=== PATIENT | female | born 1945 | race Caucasian/White ===

== ENCOUNTER → 2018-05-19 | Outpatient (REF) | payer OTHER ==
[2018-05-19 13:39] LABS: PERCENT SATURATION 47.5 % (13.2-45.0)
== END ==
LOC: M LABDRAW1 13:11 → M LAB REF 13:11
PROVIDERS: ATTEND Internal Medicine Nephrology
DX: D50.9 Iron deficiency anemia, unspecified (principal); N18.3 Chronic kidney disease, stage 3 (moderate); R80.9 Proteinuria, unspecified

== ENCOUNTER 2019-02-24 17:04 | Inpatient (IN) | payer MEDICARE, OTHER ==
[~2019-02-24] VITALS: Ht 165.1 cm; Wt 128.1 kg
[2019-02-24 19:30] VITALS: BP 146/70
[2019-02-24] MEDS ORDERED: ACETAMINOPHEN TAB 650MG DOSE (2X325MG) PO PRN (20:00)
[2019-02-24 20:27] LABS: HEMATOCRIT 23.4 % (36.0-47.0); HEMOGLOBIN 7.4 g/dl (12.0-15.5); MEAN CORPUSCULAR HEMOGLOBIN 33.6 pg (27.0-33.0); MEAN CORPUSCULAR HGB CONC 31.6 g/dl (32.0-36.5); MEAN CORPUSCULAR VOLUME 106.4 fl (80.0-96.0); PLATELET COUNT, AUTOMATED 313 10^3/uL (150-450); WHITE BLOOD COUNT 6.8 10^3/uL (4.0-10.0)
[2019-02-24] MEDS ORDERED: B-12100010 PO (20:50)
[2019-02-24] MEDS ORDERED: LASI40TA9 PO (20:50)
[2019-02-24] MEDS ORDERED: MEGE40TA PO (20:50)
[2019-02-24] MEDS ORDERED: D-10TAB3 PO (20:50)
[2019-02-24] MEDS ORDERED: VITA50005 PO (20:50)
[2019-02-24 20:51] LABS: ALBUMIN 2.9 GM/DL (3.2-5.2); BILIRUBIN,TOTAL 0.3 MG/DL (0.2-1.0); CALCIUM LEVEL 8.9 MG/DL (8.8-10.2); CREATININE FOR GFR 3.53 MG/DL (0.55-1.30); GLOMERULAR FILTRATION RATE 13.5 (>39); POTASSIUM SERUM 5.5 MEQ/L (3.5-5.1); TOTAL PROTEIN 6.6 GM/DL (6.4-8.2)
[2019-02-24] MEDS ORDERED: AMLO5TAB6 PO (20:53)
[2019-02-24 22:00] VITALS: BP 144/71
--- NOTE | 2019-02-24 23:30 | HPEPDOC ---
[facility] Medical History & Physical Date of Admission Feb 24, 2019 Date of Service: Feb 24, 2019 Attending Physician: BARB DIAZ MD History and Physical TIME OF SERVICE: 8 PM CHIEF COMPLAINT: Sent by PCP HISTORY OF PRESENT ILLNESS: This is a 73-year-old female who reports receiving a phone call from her physician, who told her to go to the ED. She's been having hematuria for about 1 month and completed a seven-day course of antibiotics for UTI. She has also been having left lower quadrant abdominal pain that radiates to her back; currently the pain has resolved. She denies having nausea, denies having vomiting, denies having fevers, denies having chills, denies having chest pain, denies any h eadaches, and denies having shortness of breath. Her only other complaint is of a runny nose. At [facility], her temperature is 90.9, blood pressures 135/60, heart rate is 102, respiratory rate was 16, and oxygen was 100% on room air. WBC 6.9, hemoglobin 7.6, platelets 355, sodium 144, potassium 5.3, chloride 111, bicarbonate 15, BUN 70, creatinine 3.6, glucose 145, anion gap 18, GFR under 13, AST 12, ALT 7, alkaline phosphatase and phosphatase 42. UA; protein 500, WBCs 123, blood 250, RBCs too numerous to count, nitrates negative, leukocyte esterase 25, bacteria trace. She had a CT that showed a uterine vs bladder mass 5 mm obstructing left UVJ junction calculi and moderate left hydroureter. She received 2 L of IV fluids She was diagnosed with acute anemia, ROWAN, hyperkalemia, nephrolithiasis and abdominal mass; therefore, the physicians [facility] requested transfer for higher level of care. REVIEW OF SYSTEMS: 12 point review of systems negative except as listed in HPI PAST MEDICAL/ SURGICAL HISTORY: History of dysfunctional uterine bleeding status post hysterectomy. Status post appendectomy. Status post right eye cataract surgery CKD stage unknown - sees Dr. Pimentel She denied having history of MA, CVA, or diabetes SOCIAL HISTORY: Does not smoke. Does not use alcohol FAMILY HISTORY: Father had emphysema ALLERGIES: Please see below. HOME MEDICATIONS: Please see below. PHYSICAL EXAMINATION: VITAL SIGNS: Please see below. GENERAL APPEARANCE: Well-nourished, well-developed, not in apparent distress HEENT: Cephalic, atraumatic. Mucous membranes moist and pink CARDIOVASCULAR: Regular rate and rhythm. No murmurs, rubs or gallops LUNGS: Clear to auscultation bilaterally on room air ABDOMEN: Positive bowel sounds, soft and nontender on palpation MUSCULOSKELETAL: Range of motion intact in all 4 extremities INTEGUMENT: Generalized pallor NEUROLOGICAL: Cranial nerves II-12 are grossly intact. Speech is not dysarthric PSYCHIATRIC: Alert and oriented to person, place and time, able to understand and follow commands LABORATORY DATA: See HPI. IMAGING: See HPI. ASSESSMENT: Ms. Siddiqui is a 73-year-old female with past medical history of hysterectomy, and multiple abdominal surgeries, who is admitted for management of acute blood loss anemia, ROWAN, and evaluation of a new abdominal mass. PLAN: 1. Gross hematuria Differential includes bladder cancer versus nephrolithiasis UA is positive for leukocyte esterase and WBCs Plan: Admit to PCU/follow-up repeat hemoglobin/type and screen/follow-up repeat UA and culture start levofloxacin / follow up with Urology to determine if the source of bleeding is the bladder mass vs the kidney stone 2. Multifactorial Anemia MCV elevated, she has had hematuria & she has CKD therefore the anemia is likely multifactorial . Consent has already been obtained for a transfusion Plan: f/u serial Hg, reticulocyte #, iron panel w ferritin, B12, RBC folate, thiamine, stool occult / pending stool occult daytime team can determine if GI consult is also warranted / f/u w Nephrology to determine if Epogen +/- Venofer are warranted 3. ROWAN on CKD versus CKD Based on our EMR it is unclear what the patient's baseline BUN/creatinine GFR are Based on records from the outside hospital her BUN and creatinine were elevated and GFR was 13, which puts her in stage V. She received 2L of IVF at [facility] Plan: hold off additional fluids pending Is/ Os & daily weights / renal diet / f/u renal US, CK, Phosphorous, 25 Vitamin D, Hepatitis Panel, PTH, Calcium, C3, C4, Iron Panel w Ferritin, Ulytes for FEUrea (home med includes lasix), UPro:Cr ratio, protein immunoelectrophoresis /follow-up with [employer] / hold lasix 4. Hyperkalemia, likely due to ROWAN Plan: telemetry / f/u EKG / avoid all K sparing diuretics and NSAIDs / Calcium gluconate IV 1G, D50W 50ml w 10 units of regular insulin 5. Abdominal mass Plan: NPO/ Follow-up with urology DVT prophylaxis with SCDs because of acute blood loss anemia. Disposition pending clinical course Vital Signs Vital Signs Date Time Temp Pulse Resp B/P (MAP) Pulse Ox O2 Delivery O2 Flow Rate FiO2 02/24/19 22:00 98.2 93 19 144/71 (95) 100 Laboratory Data Labs 24H Laboratory Tests 2 02/24/19 20:15: Nucleated Red Blood Cells % (auto) 0.0, Anion Gap 10, Glomerular Filtration Rate 13.5L, Blood Urea Nitrogen 71H, Creatinine 3.53H, Sodium Level 145, Potassium Level 5.5H, Chloride Level 119H, Carbon Dioxide Level 16L, Calcium Level 8.9, Aspartate Amino Transf (AST/SGOT) 17, Alanine Aminotransferase (ALT/SGPT) 9L, Alkaline Phosphatase 39L, Total Bilirubin 0.3, Total Protein 6.6, Albumin 2.9L, Albumin/Globulin Ratio 0.78L 02/24/19 20:20: Urine Color MERCED, Urine Appearance TURBIDH, Urine pH 5.0, Urine Specific Anza 1.018, Urine Protein 3+H, Urine Glucose (UA) NEGATIVE, Urine Ketones NEGATIVE, Urine Blood 3+H, Urine Nitrite NEGATIVE, Urine Bilirubin NEGATIVE, Urine Urobilinogen 0.2, Urine Leukocyte Esterase 2+H, Urine WBC (Auto) TNTCH, Urine RBC (Auto) TNTCH, Urine Hyaline Casts (Auto) 0, Urine Bacteria (Auto) 3+H, Urine Squamous Epithelial Cells 17, Urine Sperm (Auto) CBC/BMP Laboratory Tests 02/24/19 20:15 Red Blood Count 2.20 L, Mean Corpuscular Volume 106.4 H, Mean Corpuscular Hemoglobin 33.6 H, Mean Corpuscular Hemoglobin Concent 31.6 L, Red Cell Distribution Width 13.4, Calcium Level 8.9, Aspartate Amino Transf (AST/SGOT) 17, Alanine Aminotransferase (ALT/SGPT) 9 L, Alkaline Phosphatase 39 L, Total Bilirubin 0.3, Total Protein 6.6, Albumin 2.9 L Microbiology Microbiology 02/24/19 Urine Culture, Received Pending Home Medications Scheduled Amlodipine Besylate (Amlodipine Besylate) 5 Mg Tablet, 5 MG PO DAILY PCP PRESCRIBED PUT PT NEVER PICKED UP Cholecalciferol (Vitamin D3) (Vitamin D3) 1,000 Unit Tablet, 1,000 UNIT PO DAILY Cyanocobalamin (Vitamin B-12) (Vitamin B-12) 1,000 Mcg Capsule, 1,000 MCG PO DAILY Ergocalciferol (Vitamin D2) (Vitamin D2) 50,000 Unit Capsule, 50,000 UNIT PO 1XWK Furosemide (Lasix) 40 Mg Tablet, 40 MG PO DAILY Megestrol Acetate (Megestrol Acetate) 40 Mg Tablet, 80 MG PO BID Allergies Coded Allergies: No Known Allergies (Unverified , 02/24/19) A-FIB/CHADSVASC A-FIB History Current/History of A-Fib/PAF?: No Current PO Anticoag Therapy: No BARB DIAZ MD Feb 24, 2019 23:30
[2019-02-25] MEDS ORDERED: HumuLIN R (REGULAR) INSULIN (NovoLIN R) **100U/ML** PER UNIT IV STA (00:29)
[2019-02-25] MEDS ORDERED: DEXTROSE 50% 50 ML SYRINGE IV STA (00:29)
[2019-02-25] MEDS ORDERED: CALCIUM GLUCONATE 1,000 MG in D5W MINI-BAG PLUS 100 ML IV ONE (00:30)
[2019-02-25 04:51] LABS: MAU/CREAT RATIO 1700.4 MCG/MG (0.0-30.0); POTASSIUM RANDOM URINE 20.3 MEQ/L; SODIUM,RANDOM URINE 62 MEQ/L; UREA NITROGEN RANDOM URINE 385 MG/DL; URINE TOTAL PROTEIN 921.4 MG/DL (0-12)
[2019-02-25] MEDS: LevoFLOXacin IV 250 MG in IV 1 EA IV SCH (05:37)
[2019-02-25 06:00] VITALS: BP 141/78
[2019-02-25 06:44] LABS: HEMATOCRIT 22.8 % (36.0-47.0); MEAN CORPUSCULAR HEMOGLOBIN 32.9 pg (27.0-33.0); MEAN CORPUSCULAR HGB CONC 30.7 g/dl (32.0-36.5); PLATELET COUNT, AUTOMATED 320 10^3/uL (150-450); RED BLOOD COUNT 2.13 10^6/uL (4.00-5.40); WHITE BLOOD COUNT 7.1 10^3/uL (4.0-10.0)
[2019-02-25 06:59] LABS: CALCIUM LEVEL 9.3 MG/DL (8.8-10.2); CREATININE FOR GFR 3.43 MG/DL (0.55-1.30); GLOMERULAR FILTRATION RATE 13.9 (>39); POTASSIUM SERUM 5.1 MEQ/L (3.5-5.1)
[2019-02-25 07:04] LABS: COMPLEMENT C3 125 MG/DL (90-180); COMPLEMENT C4 27 MG/DL (10-40); CPK CREATINE PHOSPHOKINASE 135 U/L (26-192); FERRITIN 315 NG/ML (8-252); IRON (FE) 48 UG/DL (50-170); PERCENT SATURATION 23.6 % (13.2-45.0); TOTAL IRON BINDING CAPACITY 203 UG/DL (250-450); TOTAL PROTEIN 6.9 GM/DL (6.4-8.2)
[2019-02-25] MEDS: MEGESTROL 40 MG TAB PO SCH ×2 (08:44→21:22)
[2019-02-25] MEDS: amLODIPine 5 MG TAB PO SCH (08:49)
[2019-02-25 10:00] VITALS: BP 116/55
[2019-02-25 10:02] LABS: MAGNESIUM LEVEL 2.2 MG/DL (1.8-2.4)
[2019-02-25 10:24] LABS: PTH INTACT 46.4 PG/ML (18.5-88.0)
[2019-02-25 10:25] LABS: VITAMIN B12 LEVEL 377 PG/ML (247-911)
[2019-02-25 10:58] LABS: HEPATITIS C VIRUS ABY INDEX 0.1 INDEX (<0.8)
[2019-02-25 10:59] LABS: HEPATITIS B CORE ANTIBODY IGM NEGATIVE (NEGATIVE)
[2019-02-25 11:01] LABS: HEPATITIS A ANTIBODY IGM NEGATIVE (NEGATIVE)
[2019-02-25 11:09] LABS: HEPATITIS B SURFACE ANTIGEN NEGATIVE (NEGATIVE)
--- NOTE | 2019-02-25 11:36 | SMCUROLCON ---
Urology Consultation General Date of Consultation 02/25/19 Reason For Consultation This patient is seen for Acute Renal Failure. History of Present Illness This is a 73 y/o F w/ a PMH significant for CKD, transferred from [place] ER for hematuria and worsening renal function. She was told to go the ER yesterday by her PCP for abnormal labs. In [place] ED she was found to have a Hb of 7.4 and a Cr up to 3 (from a baseline of 1.8). A CT A/P was done there and per their report she had a large uterine mass and left hydroureteronephrosis due to a 5mm ureteral stone. Also per report her urine was bright red. The patient denies having any pain. She is voiding q1 hr but denies dysuria. She notes th at she has been having on and off hematuria since being diagnosed w/ a UTI about 2 wks ago and she completed a course of abx for this. She denies having any hematuria prior to that. She has never smoked. She denies weakness or lightheadedness. She denies chest pain or SOB. Past Medical History Medical History CKD Surgical Hstory hysterectomy, appendectomy, cataract surgery Medications Current Medications Current Medications Medications (Trade) Dose Ordered Sig/Zenia Route PRN Reason Start Time Stop Time Status Last Admin Dose Admin Acetaminophen (Tylenol Tab) 650 mg Q4H PRN PO PAIN OR FEVER 02/24/19 20:00 Amlodipine Besylate (Norvasc) 5 mg DAILY PO 02/25/19 09:00 02/25/19 08:49 Dextrose (Dextrose 50%) 50 ml STAT STAT IV 02/25/19 00:29 02/25/19 00:41 DC 02/25/19 01:14 Home Med (Med Rec Complete!) ASDIRECTED XX 02/24/19 21:00 02/24/19 21:48 DC Insulin Human Regular (HumuLIN R INSULIN) 10 units STAT STAT IV 02/25/19 00:29 02/25/19 00:41 DC 02/25/19 01:15 Levofloxacin 250 mg/IV Miscellaneous Supplies 50 ml @ 50 mls/hr Q48H IV 02/25/19 05:00 02/25/19 05:37 Megestrol Acetate (Megace) 80 mg BID PO 02/25/19 09:00 02/25/19 08:44 Sodium Bicarbonate 100 meq/Dextrose/Water 1,100 ml @ 100 mls/hr Q11H IV 02/25/19 13:00 02/26/19 08:59 Allergies Allergies: Coded Allergies: No Known Allergies (Unverified , 02/24/19) Review of Systems General: Reports: Normal Appetite; Denies: Fatigue, Malaise Constitutional: Denies: Fever, Chills, Sweats, Weakness, Malaise Pulmonary: Denies: Dyspnea, Cough Cardiovascular: Denies Chest Pain, Denies Palpitations, Denies Orthopnea, Denies Paroxysmal Noc. Dyspnea, Denies Edema, Denies Lt Headedness, Denies Other Symptoms Gastrointestinal: Denies: Nausea, Vomiting, Abdominal Pain Genitourinary: Reports: Frequency, Hematuria; Denies: Dysuria Musculoskeletal: Denies: Neck Pain, Back Pain Neurological: Denies: Weakness, Numbness, Incoordination, Change in Speech Psych: Reports: Mood Normal; Denies: Anxiety, Depression Physical Examination General Exam: Alert, Cooperative, No Acute Distress Chest Exam: Clear to auscultation Heart Exam: Rate Normal Abdomen Exam: Soft; No: Tenderness Skin Exam: Nl turgor and temperature Neuro Exam: Normal Speech Psych Exam: Mental status NL, Mood NL Vital Signs/I&O Vital Signs Date Time Temp Pulse Resp B/P (MAP) Pulse Ox O2 Delivery O2 Flow Rate FiO2 02/25/19 10:00 99.3 69 18 116/55 (75) 98 I&O- Last 24 Hours up to 6 AM 02/25/19 06:00 Intake Total 175 ml Output Total 325 ml Balance -150 ml Laboratory Data 24H Labs Laboratory Tests 2 02/24/19 20:15: Nucleated Red Blood Cells % (auto) 0.0, Anion Gap 10, Glomerular Filtration Rate 13.5L, Blood Urea Nitrogen 71H, Creatinine 3.53H, Sodium Level 145, Potassium Level 5.5H, Chloride Level 119H, Carbon Dioxide Level 16L, Calcium Level 8.9, Aspartate Amino Transf (AST/SGOT) 17, Alanine Aminotransferase (ALT/SGPT) 9L, Alkaline Phosphatase 39L, Total Bilirubin 0.3, Total Protein 6.6, Albumin 2.9L, Albumin/Globulin Ratio 0.78L 02/24/19 20:20: Urine Color MERCED, Urine Appearance TURBIDH, Urine pH 5.0, Urine Specific Harrison 1.018, Urine Protein 3+H, Urine Glucose (UA) NEGATIVE, Urine Ketones NEGATIVE, Urine Blood 3+H, Urine Nitrite NEGATIVE, Urine Bilirubin NEGATIVE, Urine Urobilinogen 0.2, Urine Leukocyte Esterase 2+H, Urine WBC (Auto) TNTCH, Urine RBC (Auto) TNTCH, Urine Hyaline Casts (Auto) 0, Urine Bacteria (Auto) 3+H, Urine Squamous Epithelial Cells 17, Urine Sperm (Auto) 02/25/19 03:20: Urine Random Creatinine 247.0, Urine Random Sodium 62, Urine Random Potassium 20.3, Urine Random Urea Nitrogen 385, Urine Creatinine 247.0, Urine Microalbumin 4200.0, Urine Microalbumin/Creatinine Ratio 1700.4H, Urine Total Protein mg/dL 921.4H 02/25/19 06:13: Nucleated Red Blood Cells % (auto) 0.0, Anion Gap 11, Glomerular Filtration Rate 13.9L, Blood Urea Nitrogen 66H, Creatinine 3.43H, Sodium Level 146H, Potassium Level 5.1, Chloride Level 121H, Carbon Dioxide Level 14L, Calcium Level 9.3, Reticulocyte # (auto) 37.5, Percent Reticulocyte Count 1.8H, Reticulocyte Hemoglobin Equivalent 35.3, Phosphorus Level 5.0H, Magnesium Level 2.2, Iron Level 48L, Total Iron Binding Capacity 203L, Transferrin % Saturation 23.6, Ferritin 315H, Total Creatine Kinase 135, Total Protein (PEP) 6.9, Vitamin B12 Level 377, Folate 7.0, Parathyroid Hormone (Intact) 46.4, Complement C3 125, Complement C4 27, Hepatitis A IgM Antibody NEGATIVE, Hepatitis B Surface Antigen NEGATIVE, Hepatitis B Core IgM Antibody NEGATIVE, Hepatitis C Antibody Index 0.1 CBC/BMP Laboratory Tests 02/24/19 20:15 Red Blood Count 2.20 L, Mean Corpuscular Volume 106.4 H, Mean Corpuscular Hemoglobin 33.6 H, Mean Corpuscular Hemoglobin Concent 31.6 L, Red Cell Distribution Width 13.4, Calcium Level 8.9, Aspartate Amino Transf (AST/SGOT) 17, Alanine Aminotransferase (ALT/SGPT) 9 L, Alkaline Phosphatase 39 L, Total Bilirubin 0.3, Total Protein 6.6, Albumin 2.9 L 02/25/19 06:13 Red Blood Count 2.13 L, Mean Corpuscular Volume 107.0 H, Mean Corpuscular Hemoglobin 32.9, Mean Corpuscular Hemoglobin Concent 30.7 L, Red Cell Distribution Width 13.6, Calcium Level 9.3 Microbiology Microbiology 02/24/19 Urine Culture, Received Pending Assessment This is a 73 y/o F w/ hematuria and acute on chronic kidney failure. I reviewed her CT scan. She has mild to moderate left hydroureternephrosis and a distended bladder on the CT. There is NO URETERAL stone that I can see on the CT, leading me to believe that her hydroureteronephrosis is due to incomplete emptying. Her PVR today was about 350cc. This and her anemia could be causing her bump in Cr. She is currently voiding light pink urine, indicating that her hematuria is very mild at this point. Also on CT, what was called a uterine mass, actually appears to be mass in the bladder. This could be all blood clot. She denies a hx of smoking and therefore a bladder mass is not likely but still possible. Plan - recommend catheter placement for urinary retention - would see if Cr and hydro improve w/ catheter placement - consider getting a f/u renal US in 2-3 days - regarding hematuria, it is pink and therefore mild - does not require any surgical intervention at this time - will need outpatient w/u - if Cr and hydro do not improve w/ catheter placement, will consider a left ureteral stent placement - assuming Cr and hydro do improve, would keep catheter in on discharge and have patient f/u in urology clinic for voiding trial and to get her set up for cystoscopy ABHISHEK ATKINS MD Feb 25, 2019 11:36
[2019-02-25 14:00] VITALS: BP 134/63
--- NOTE | 2019-02-25 16:37 | IPN ---
DATE: 02/25/2019 Output overnight was 150, from midnight it is 275. Current weight is 124.4 kg. SUBJECTIVE: The patient complains of being fatigued and weak. She was initially refusing Lizarraga catheter and urological intervention; however, after a conversation with press catcher, Dr. Shanks, the patient was agreeable for cystoscopy and surgery if needed. The patient denies any dysuria, urgency, frequency. Denies lightheadedness or dizziness. Complains of generalized weakness with a hemoglobin of 7. No recurrent episodes of gross hematuria. PHYSICAL EXAMINATION: Temperature 99.3, pulse 69, respiratory rate 18, blood pressure 116/55, 98% on room air. GENERAL: The patient is awake, alert, oriented to person, place and time, answering questions appropriately. Face is symmetric. Some pallor. No icterus or jaundice. No jugular venous distention (JVD). No thyromegaly. Lungs are clear to auscultation. No wheezing, rales or rhonchi. Heart: S1, S2. Sinus rhythm. Abdomen: Obese, soft, nontender, nondistended. Extremities: No cyanosis, clubbing or any pitting edema. LABORATORY DATA: White count 7.1, hemoglobin 7, hematocrit 22, platelet count 320. Sodium 146, potassium 5.1, chloride 121, bicarbonate 14, BUN 66, creatinine 3.43, glucose of 90, phosphorous 5, magnesium 2.2. Total CK of 135. ACTIVE MEDICATIONS: - sodium bicarbonate 100 mL per hour - Norvasc 5 mg daily - megestrol 80 mg twice a day - Levaquin 250 mg IV every 48 hours - Tylenol 650 mg as needed every 4 hours for pain or fever Urine culture is pending. Urinalysis showed 2+ leukocyte esterase, too numerous to count white count, RBC too numerous to count, 3+ bacteria. ASSESSMENT AND PLAN: This is a 73-year-old female with a history of chronic kidney disease stage III, baseline creatinine 1.8, presented with gross hematuria and found to have a creatinine of 3.43, hyperkalemia, metabolic acidosis, hypernatremia. 1. At [facility], the patient was found to have urinary stones and a bladder mass, sent to [facility] for urological services. Per urologist, reviewed the CT and there is no kidney stone. She has mild to moderate left hydroureteronephrosis, distended bladder on the CT. No ureteral stone was seen. Recommendations for postvoid residual checks and Lizarraga catheter placement. Hematuria was very mild. On CT there is a uterine mass. The patient says that she had a hysterectomy in the past, most likely mass in the bladder, which could be blood clot. No immediate cystoscopy at this time. Urology is recommending for her to have followup CT or renal ultrasound in 2 to 3 days after Lizarraga catheter is placed and IV fluids are given. 2. Metabolic acidosis with hyperkalemia, hypernatremia secondary to renal failure, thought to be due to obstructive uropathy. Per nephrology, the patient will need intervention. We will defer to urology and revisit this case in the morning after Lizarraga catheter and IV fluids have been given. 3. Urinary tract infection (UTI). Currently on renally dosed Levaquin. 4. Severe anemia, multifactorial, secondary to blood loss, as well as chronic renal failure. Currently being transfused 2 units of blood with goal of less than 11 hemoglobin due to increased risk of CVA, lymphoma and myocardial infarction. MTDD
--- NOTE | 2019-02-25 18:30 | CR.PDOC ---
General Date of Consultation: Feb 25, 2019 Referring Provider: SOHEILA WILD MD Attending Physician: BOBBI GANDHI MD Consultation NEPHROLOGY SERVICE CONSULTATION NOTE REASON FOR CONSULTATION/CHIEF COMPLAINT: ROWAN HISTORY OF PRESENT ILLNESS: Trish Siddiqui is a 73 YO F with history of CKD III who first presented to [facility] after her PCP found that she was anemic and insisted she report to the hospital for further workup. Per the patient, she has been having hematuria for about a month, which she attributes to a UTI and has completed a 7 day course of antibiotic. She also has had 7/10 left lower abdominal pain that radiates to her back which is constant and was gradual in onset. She has been urinating frequently and never feels as though she empties her bladder. She denies any fevers, chills, weight loss or night sweats. She currently follows with Dr. Pimentel for her CKD, and about 5 months ago her Cr was around 1.8, her baseline. A CT scan performed at [facility] has been reviewed with Dr. Zuluaga of Radiology and demonstrated a large pelvic mass and left-sided hydronephrosis. Urology was consulted and is currently following the patient. ALLERGIES: Please see below. HOME MEDICATIONS: Please see below. PAST MEDICAL/ SURGICAL HISTORY: History of dysfunctional uterine bleeding status post hysterectomy Status post appendectomy. Status post right eye cataract surgery CKD stage III SOCIAL HISTORY: Does not smoke. Does not use alcohol FAMILY HISTORY: No significant FH of ESRD REVIEW OF SYSTEMS: CONSTITUTIONAL: denies fevers, chills, nausea/vomiting, no weight loss HEENT: no pain with eye movement, no trouble swallowing CARDIOVASCULAR: denies palpitations RESPIRATORY: denies shortness of breath or cough GENITOURINARY: reports frequent urination and feeling as though her bladder is not emptying MUSCULOSKELETAL: denies any pain in her joints GASTROINTESTINAL: denies any nausea/vomiting or diarrhea/constipation. Denies abdominal pain SKIN: denies any new rashes NEUROLOGICAL: denies any new focal deficits, loss of motor or sensory function PSYCHIATRIC: normal mood/affect ENDOCRINE: no heat/cold intolerance HEMATOLOGIC/LYMPHATIC: denies any easy bruising, no lumps/bumps ALLERGIC/IMMUNOLOGIC: no allergic symptoms PHYSICAL EXAMINATION: VITAL SIGNS: Please see below. GENERAL APPEARANCE: sitting up in bed, obese female appearing stated age and in no acute distress HEENT: EOMI, PERRLA, neck is supple with no lymphadenopathy or thyromegaly RESPIRATORY: clear to auscultation bilaterally without any adventitious breath sounds appreciated CARDIOVASCULAR: RRR without any murmurs/rubs/gallops ABDOMEN: soft, slightly tender to palpation in LLQ, +BS EXTREMITIES: very largely edematous legs with evidence of chronic edema and thick scaly skin NEUROLOGICAL: No focal deficits appreciated PSYCHIATRIC: normal mood, somewhat anxious affect LABORATORY DATA: Please see below. ASSESSMENT/PLAN: Trish Siddiqui is a 73 YO F with history of CKD III found to be anemic with hgb 7.4 with an ROWAN and new pelvic mass. The patient also has hydronephrosis of her left kidney possibly indicating obstruction. 1. Pelvic Mass and hematuria: -CT reviewed with Radiology and it appears the mass may be within the bladder wall, which would explain this patient's feeling of incomplete bladder emptying and frequent urination. There is also an obstruction in the ureter distally that is most likely causing hydronephrosis, especially in the left kidney. -Cr up to 3.43 from baseline of 1.8 only 4 months ago. -Would recommend IVF hydration and desai catheter for now. The patient may need a cystoscopy to further identify the obstruction and possible ureteral stents or percutaneous urostomy tubes should the relief of the obstruction not improve her hydronephrosis. -Urology following 2. Acute renal failure: -Will start the patient on IVF hydration at this time. -Avoid any nephrotoxic medications 3. Anemia: likely multifactorial (blood loss vs anemia of Chronic kidney disease): -Have ordered 2U pRBCs to be transfused -Will recheck H/H tomorrow morning 4. Normal anion gap metabolic acidosis: Secondary to acute renal failure -Sodium bicarbonate in IVF -Will continue to monitor metabolic panel 5. Left-sided hydronephrosis: -Likely to improve with relief of ureteral obstruction Dispo: pending clinical improvement and urology recommendations. Vital Signs/I&O Vital Signs Date Time Temp Pulse Resp B/P (MAP) Pulse Ox O2 Delivery O2 Flow Rate FiO2 02/25/19 14:00 99.1 85 18 134/63 (86) 100 I&O- Last 24 Hours up to 6 AM 02/25/19 06:00 Intake Total 175 ml Output Total 325 ml Balance -150 ml Laboratory Data Labs 24H Laboratory Tests 2 02/24/19 20:15: Nucleated Red Blood Cells % (auto) 0.0, Anion Gap 10, Glomerular Filtration Rate 13.5L, Blood Urea Nitrogen 71H, Creatinine 3.53H, Sodium Level 145, Potassium Level 5.5H, Chloride Level 119H, Carbon Dioxide Level 16L, Calcium Level 8.9, Aspartate Amino Transf (AST/SGOT) 17, Alanine Aminotransferase (ALT/SGPT) 9L, Alkaline Phosphatase 39L, Total Bilirubin 0.3, Total Protein 6.6, Albumin 2.9L, Albumin/Globulin Ratio 0.78L 02/24/19 20:20: Urine Color MERCED, Urine Appearance TURBIDH, Urine pH 5.0, Urine Specific [place] 1.018, Urine Protein 3+H, Urine Glucose (UA) NEGATIVE, Urine Ketones NEGATIVE, Urine Blood 3+H, Urine Nitrite NEGATIVE, Urine Bilirubin NEGATIVE, Urine Urobilinogen 0.2, Urine Leukocyte Esterase 2+H, Urine WBC (Auto) TNTCH, Urine RBC (Auto) TNTCH, Urine Hyaline Casts (Auto) 0, Urine Bacteria (Auto) 3+H, Urine Squamous Epithelial Cells 17, Urine Sperm (Auto) 02/25/19 03:20: Urine Random Creatinine 247.0, Urine Random Sodium 62, Urine Random Potassium 20.3, Urine Random Urea Nitrogen 385, Urine Creatinine 247.0, Urine Microalbumin 4200.0, Urine Microalbumin/Creatinine Ratio 1700.4H, Urine Total Protein mg/dL 921.4H 02/25/19 06:13: Nucleated Red Blood Cells % (auto) 0.0, Anion Gap 11, Glomerular Filtration Rate 13.9L, Blood Urea Nitrogen 66H, Creatinine 3.43H, Sodium Level 146H, Potassium Level 5.1, Chloride Level 121H, Carbon Dioxide Level 14L, Calcium Level 9.3, Reticulocyte # (auto) 37.5, Percent Reticulocyte Count 1.8H, Reticulocyte Hemoglobin Equivalent 35.3, Phosphorus Level 5.0H, Magnesium Level 2.2, Iron Level 48L, Total Iron Binding Capacity 203L, Transferrin % Saturation 23.6, Ferritin 315H, Total Creatine Kinase 135, Total Protein (PEP) 6.9, Vitamin B12 Level 377, Folate 7.0, Parathyroid Hormone (Intact) 46.4, Complement C3 125, Com plement C4 27, Hepatitis A IgM Antibody NEGATIVE, Hepatitis B Surface Antigen NEGATIVE, Hepatitis B Core IgM Antibody NEGATIVE, Hepatitis C Antibody Index 0.1 CBC/BMP Laboratory Tests 02/24/19 20:15 Red Blood Count 2.20 L, Mean Corpuscular Volume 106.4 H, Mean Corpuscular Hemog lobin 33.6 H, Mean Corpuscular Hemoglobin Concent 31.6 L, Red Cell Distribution Width 13.4, Calcium Level 8.9, Aspartate Amino Transf (AST/SGOT) 17, Alanine Aminotransferase (ALT/SGPT) 9 L, Alkaline Phosphatase 39 L, Total Bilirubin 0.3, Total Protein 6.6, Albumin 2.9 L 02/25/19 06:13 Red Blood Count 2.13 L, Mean Corpuscular Volume 107.0 H, Mean Corpuscular Hemoglobin 32.9, Mean Corpuscular Hemoglobin Concent 30.7 L, Red Cell Distribution Width 13.6, Calcium Level 9.3 02/25/19 11:54 Microbiology Microbiology 02/24/19 Urine Culture, Received Pending Allergies Coded Allergies: No Known Allergies (Unverified , 02/24/19) Home Medications Scheduled Amlodipine Besylate (Amlodipine Besylate) 5 Mg Tablet, 5 MG PO DAILY, (Reported) PCP PRESCRIBED PUT PT NEVER PICKED UP Cholecalciferol (Vitamin D3) (Vitamin D3) 1,000 Unit Tablet, 1,000 UNIT PO DAILY, (Reported) Cyanocobalamin (Vitamin B-12) (Vitamin B-12) 1,000 Mcg Capsule, 1,000 MCG PO DAILY, (Reported) Ergocalciferol (Vitamin D2) (Vitamin D2) 50,000 Unit Capsule, 50,000 UNIT PO 1XWK, (Reported) Furosemide (Lasix) 40 Mg Tablet, 40 MG PO DAILY, (Reported) Megestrol Acetate (Megestrol Acetate) 40 Mg Tablet, 80 MG PO BID, (Reported) GME ATTESTATION GME ATTESTATION My faculty preceptor for this patient encounter was physically present during the encounter and was fully available. All aspects of the patient interview, examination, medical decision making process, and medical care plan development were reviewed and approved by the faculty preceptor. The faculty preceptor is aware and concurs with the plan as stated in the body of this note and will attest to such by his/her cosignature. MARU SILVERIO MD Feb 25, 2019 18:30 BOBBI GANDHI MD Feb 26, 2019 12:17
--- NOTE | 2019-02-25 20:15 | REP ---
RENAL ULTRASOUND: Real-time sonographic evaluation of the kidneys performed. The kidneys are normal in size and echotexture, right kidney measuring 9.7 x 5.5 x 5.0 cm and left kidney 10.9 x 6.0 x 5.6 cm. There is no hydronephrosis on the right. There is moderate hydronephrosis on the left. The proximal ureter appears moderately dilated as well. No renal stone is seen bilaterally. Lizarraga catheter is seen in the urinary bladder and there appears to be surrounding debris in the bladder. The study is limited due to patient body habitus. IMPRESSION: Moderate left hydronephrosis. Electronically Signed by Zack Mahajan MD 02/28/2019 11:22 P
[2019-02-25] MEDS: SODIUM BICARBONATE 100 MEQ in D5W 1,000 ML IV SCH (21:23)
[2019-02-25 22:00] VITALS: BP 127/58
[2019-02-26] MEDS ORDERED: diphenhydrAMINE 25 MG CAP PO ONE (03:15)
[2019-02-26 06:00] VITALS: BP 117/58
[2019-02-26 08:38] LABS: CREATININE FOR GFR 2.46 MG/DL (0.55-1.30); GLOMERULAR FILTRATION RATE 20.4 (>39); POTASSIUM SERUM 4.5 MEQ/L (3.5-5.1)
[2019-02-26 08:39] LABS: BASO # 0.1 10^3/uL (0.0-0.2); BASO % 0.9 % (0.0-1.0); EOS # 0.1 10^3/uL (0.0-0.5); LYMPH # 1.8 10^3/uL (1.5-5.0); LYMPH % 26.5 % (24.0-44.0); MEAN CORPUSCULAR HEMOGLOBIN 32.7 pg (27.0-33.0); MONO # 0.7 10^3/uL (0.0-0.8); MONO % 10.2 % (0.0-5.0); NEUTROPHILS % 59.5 % (36.0-66.0); PLATELET COUNT, AUTOMATED 282 10^3/uL (150-450); RED BLOOD COUNT 2.45 10^6/uL (4.00-5.40); WHITE BLOOD COUNT 6.6 10^3/uL (4.0-10.0)
[2019-02-26] MEDS: SODIUM BICARBONATE 100 MEQ in D5W 1,000 ML IV SCH (08:57)
[2019-02-26] MEDS: MEGESTROL 40 MG TAB PO SCH ×2 (08:58→20:29)
[2019-02-26] MEDS: amLODIPine 5 MG TAB PO SCH (08:59)
--- NOTE | 2019-02-26 11:44 | IPNPDOC ---
Date Seen The patient was seen on 02/26/19. Progress Note SUBJECTIVE: Patient was seen and examined at the bedside this morning. She now has a catheter in place, draining pink urine and she finds it quite uncomfortable. Her CT scan results were reviewed with her and she voiced understanding. Her Cr improved today and she is s/p transfusion of 2U pRBCs with an improvement of her Hgb. OBJECTIVE PHYSICAL EXAMINATION: VITAL SIGNS: Please see below. GENERAL APPEARANCE: sitting up in bed, obese female appearing stated age and in no acute distress HEENT: EOMI, PERRLA, neck is supple with no lymphadenopathy or thyromegaly RESPIRATORY: some faint crackles are appreciated at the bases bilaterally; otherwise no adventitious breath sounds can be heard CARDIOVASCULAR: RRR without any murmurs/rubs/gallops ABDOMEN: soft, slightly tender to palpation in LLQ, +BS EXTREMITIES: very largely edematous legs with evidence of chronic edema and thick scaly skin NEUROLOGICAL: No focal deficits appreciated PSYCHIATRIC: normal mood, somewhat anxious affect LABORATORY DATA: Please see below. IMAGING: RENAL ULTRASOUND: Real-time sonographic evaluation of the kidneys performed. The kidneys are normal in size and echotexture, right kidney measuring 9.7 x 5.5 x 5.0 cm and left kidney 10.9 x 6.0 x 5.6 cm. There is no hydronephrosis on the right. There is moderate hydronephrosis on the left. The proximal ureter appears moderately dilated as well. No renal stone is seen bilaterally. Lizarraga catheter is seen in the urinary bladder and there appears to be surrounding debris in the bladder. The study is limited due to patient body habitus. IMPRESSION: Moderate left hydronephrosis. ASSESSMENT/PLAN: Trish Siddiqui is a 73 YO F with history of CKD III found to be anemic with hgb 7.4 with an ROWAN and new pelvic mass. The patient also has hydronephrosis of her left kidney possibly indicating obstruction. 1. Bladder mass and hematuria: -CT reviewed with Radiology and it appears the mass may be within the bladder wall, which would explain this patient's feeling of incomplete bladder emptying and frequent urination. There may also be an obstruction in the ureter distally that is most likely causing hydronephrosis, especially in the left kidney. -Urology following and case discussed with Dr. Longo (although Dr. Mann is currently following her). Given the fact that the patient's Cr has improved today and that she is making urine appropriately, she may be able to do cystoscopy in outpatient setting as long as her left-sided hydronephrosis improves. -Renal US yesterday confirmatory for left-sided hydronephrosis. Will do repeat US in 2 days to assess for improvement. 2. Acute renal failure: Cr improved to 2.46 from 3.4 yesterday -s/p IVF. No need for further hydration at this time. -Urine output about 500cc yesterday. Will continue to closely monitor -Avoid any nephrotoxic medications 3. Anemia: likely multifactorial (blood loss vs anemia of Chronic kidney disease): -S/p 2U pRBCs transfusion. Hgb went up today to 8.0 -The patient is still having hematuria, most likely from bleeding bladder mass, so will continue to monitor H/H 4. Normal anion gap metabolic acidosis: Secondary to acute renal failure -Sodium bicarbonate in IVF 5. Left-sided hydronephrosis: -Likely to improve with relief of ureteral obstruction -Repeat renal US in 2 days Dispo: pending clinical improvement and urology recommendations. VS, I&O, 24H, [facility] Vital Signs/I&O Vital Signs Date Time Temp Pulse Resp B/P (MAP) Pulse Ox O2 Delivery O2 Flow Rate FiO2 02/26/19 08:59 76 131/56 02/26/19 06:00 96.8 18 99 I&O- Last 24 Hours up to 6 AM 02/26/19 05:59 Intake Total 1590 ml Output Total 250 ml Balance 1340 ml Laboratory Data 24H LABS Laboratory Tests 2 02/26/19 07:53: Immature Granulocyte % (Auto) 0.9, White Blood Count 6.6, Red Blood Count 2.45L, Hemoglobin 8.0L, Hematocrit 25.0L, Mean Corpuscular Volume 102.0H, Mean Corpuscular Hemoglobin 32.7, Mean Corpuscular Hemoglobin Concent 32.0, Red Cell Distribution Width 15.8H, Platelet Count 282, Neutrophils (%) (Auto) 59.5, L ymphocytes (%) (Auto) 26.5, Monocytes (%) (Auto) 10.2H, Eosinophils (%) (Auto) 2.0, Basophils (%) (Auto) 0.9, Neutrophils # (Auto) 4.0, Lymphocytes # (Auto) 1.8, Monocytes # (Auto) 0.7, Eosinophils # (Auto) 0.1, Basophils # (Auto) 0.1, Nucleated Red Blood Cells % (auto) 0.0, Anion Gap 10, Glomerular Filtration Rate 20.4L, Blood Urea Nitrogen 58H, Creatinine 2.46H, Sodium Level 146H, Potassium Level 4.5, Chloride Level 119H, Carbon Dioxide Level 17L, Calcium Level 9.0 CBC/BMP Laboratory Tests 02/25/19 11:54 02/25/19 23:43 02/26/19 07:53 Red Blood Count 2.45 L, Mean Corpuscular Volume 102.0 H, Mean Corpuscular Hemoglobin 32.7, Mean Corpuscular Hemoglobin Concent 32.0, Red Cell Distribution Width 15.8 H, Neutrophils (%) (Auto) 59.5, Lymphocytes (%) (Auto) 26.5, Monocyt es (%) (Auto) 10.2 H, Eosinophils (%) (Auto) 2.0, Basophils (%) (Auto) 0.9, Neutrophils # (Auto) 4.0, Lymphocytes # (Auto) 1.8, Monocytes # (Auto) 0.7, Eosinophils # (Auto) 0.1, Basophils # (Auto) 0.1, Calcium Level 9.0 Microbiology Microbiology 02/24/19 Urine Culture - Final, Complete GME ATTESTATION GME ATTESTATION My faculty preceptor for this patient encounter was physically present during the encounter and was fully available. All aspects of the patient interview, examination, medical decision making process, and medical care plan development were reviewed and approved by the faculty preceptor. The faculty preceptor is aware and concurs with the plan as stated in the body of this note and will attest to such by his/her cosignature. MARU SILVERIO MD Feb 26, 2019 11:44
[2019-02-26] MEDS: BELLADONNA 16.2mg/OPIUM 30mg 1 EA SUPP PR SCH ×2 (12:35→17:19)
[2019-02-26 14:00] VITALS: BP 127/55
--- NOTE | 2019-02-26 15:00 | IPN ---
DATE: 02/26/2019 Patient seen and examined at the bedside. She has no new complaints. Denies any shortness of breath, chest pain, pressure or tightness. Denies any dysuria, urgency or frequency. Lizarraga catheter was placed. Has no recurrent hematuria. Afebrile overnight. No chills. PHYSICAL EXAMINATION: Temperature 96.8, pulse 75, respiratory rate 18, blood pressure 117/58, 99% on room air. Generally, awake, alert, oriented to person and place, answering questions appropriately. No jugular venous distention (JVD). No thyromegaly. No use of respiratory accessory muscles. Anicteric. Lungs are clear to auscultation. No wheezing, rales or rhonchi. Heart S1, S2. Sinus rhythm. No murmur, rub or gallops. Abdomen obese, soft, nontender. Lizarraga catheter with bright red blood in the bag but appears to have stopped. Extremities: Chronic lymphedema and venous stasis changes. LABORATORY DATA: White count 6.6, hemoglobin 8, hematocrit 25, platelet count 282. Sodium 146, potassium 4.5, chloride 119, bicarbonate 17, BUN 50, creatinine 2.46, glucose of 92. Input and output overnight: Input 1440, output 425. Weight is 125.8 kg. 02/25 renal ultrasound moderate left hydronephrosis. ASSESSMENT AND PLAN: 73-year-old female with stage III chronic kidney disease, baseline creatinine 1.8, presented from [facility] for possible urinary stones, questionable bladder mass for urological services at [facility]. CURRENT ISSUES: 1. Moderate left hydroureteronephrosis, distended bladder on CT. No ureteral stone was seen on renal ultrasound repeated here. Per Dr. Longo patient does not need any immediate cystoscopy at this time. Followup with renal ultrasound or CT abdomen and pelvis two days after Lizarraga catheter is placed. If not improvement stent will be done. 2. Acute on chronic renal failure. Presented with stage V renal failure. Baseline is stage III. Currently has stage IV with IV fluids and Lizarraga catheter due to obstructive uropathy. Manage of IV fluids with bicarbonate managed by nephrology. Strict intake and output, daily weights. Monitor for respiratory distress. 3. Obstructive uropathy secondary to possible blood clots versus bladder mass. Defer to urology if no improvement on repeat ultrasound or CT abdomen and pelvis on 02/27/2019 for possible stent placement. 4. Blood loss anemia. Status post 2 units RBC transfusion with improvement from 7 to 8. The patient is not having any ongoing hematuria at his time. Will transfuse for symptomatic anemia or if hemoglobin is recurrently less than 8. Goal hemoglobin is 11. MTDD
--- NOTE | 2019-02-26 16:32 | IPN ---
DATE: 02/26/2019 Mrs. Siddiqui is seen this morning on her bedside. She is feeling better; however, she reports discomfort due to Lizarraga catheter and wants to get it out. She does have some mild hematuria. She denies any nausea, vomiting, dyspnea, or chest pain. She was admitted with severe anemia and acute renal failure. A CT scan of abdomen and pelvis that was done in [facility] raised the suspicion for a large bladder mass. She had an ultrasound, which did show debris in the bladder and a Lizarraga catheter in place. Her catheter is now draining, and she does have mild hematuria. She has been transfused 2 units of packed red blood cells (RBC) so far. PHYSICAL EXAMINATION: Temperature 96.8 degrees Fahrenheit, heart rate 76 per minute, respiratory rate 18 per minute, blood pressure 131/56 mm of mercury, and oxygen saturation 99% on room air. Head is atraumatic. Neck is supple and without jugular venous distention (JVD) or thyroid enlargement. Heart sounds regular, and lungs are clear to auscultation. Abdomen obese, soft, and nontender, and bowel sounds are normal. Extremities have no cyanosis or clubbing. She has chronic hypertrophic skin changes on her lower extremities but no pitting edema. Neurologically, she is awake, alert, and oriented times three. Today's labs show WBC count 6.6, hemoglobin 8.0, hematocrit 25.0. A repeat hemoglobin at noon is 8.6. Sodium 146, potassium 4.5, CO2 of 17, BUN 58, and creatinine 2.46. Glucose 92 and calcium 9.0. PROBLEMS: 1. Acute kidney injury superimposed on chronic kidney disease. Kidney function is improving, and we will continue to maintain Lizarraga catheter. She has also received intravenous (IV) fluid, and her oral intake and also improved. 2. Urinary tract infection (UTI). Currently she is on levofloxacin 250 mg every 48 hours. 3. Gross hematuria and bladder mass. I have discussed with urology. The patient currently had a Lizarraga catheter in place. Urology plans to do a cystoscopy as an outpatient. At this point, urology does not feel that emergent intervention is indicated. 4. Metabolic acidosis. She has received sodium bicarbonate, and her acidosis is gradually improving. Her sodium bicarbonate drip is already stopped this morning. 5. Anemia. Her anemia improved following transfusion. She is likely to require further transfusion if her anemia gets worse.
[2019-02-26 18:00] VITALS: BP 139/58
[2019-02-26] MEDS: ALPRAZolam 0.25 MG TAB PO PRN (20:29)
[2019-02-26 22:00] VITALS: BP 131/48
[2019-02-27] MEDS: BELLADONNA 16.2mg/OPIUM 30mg 1 EA SUPP PR SCH ×3 (00:13→12:00)
[2019-02-27 02:00] VITALS: BP 125/50
[2019-02-27 06:00] VITALS: BP 119/52
[2019-02-27] MEDS: LevoFLOXacin IV 250 MG in IV 1 EA IV SCH (06:38)
[2019-02-27 06:39] LABS: HEMATOCRIT 25.3 % (36.0-47.0); HEMOGLOBIN 7.9 g/dl (12.0-15.5); MEAN CORPUSCULAR HEMOGLOBIN 32.2 pg (27.0-33.0); MEAN CORPUSCULAR HGB CONC 31.2 g/dl (32.0-36.5); MEAN CORPUSCULAR VOLUME 103.3 fl (80.0-96.0); PLATELET COUNT, AUTOMATED 255 10^3/uL (150-450); RED BLOOD COUNT 2.45 10^6/uL (4.00-5.40); WHITE BLOOD COUNT 7.1 10^3/uL (4.0-10.0)
[2019-02-27 06:50] LABS: CALCIUM LEVEL 8.4 MG/DL (8.8-10.2); CREATININE FOR GFR 2.47 MG/DL (0.55-1.30); GLOMERULAR FILTRATION RATE 20.3 (>39); POTASSIUM SERUM 4.8 MEQ/L (3.5-5.1)
[2019-02-27] MEDS: MEGESTROL 40 MG TAB PO SCH ×2 (08:23→21:25)
[2019-02-27] MEDS: amLODIPine 5 MG TAB PO SCH (08:24)
[2019-02-27 10:00] VITALS: BP 125/49
--- NOTE | 2019-02-27 10:25 | IPNPDOC ---
Subjective Review oF Systems Chief Complaint The patient is a 73-year-old female admitted with a reason for visit of Acute Renal Failure and hematuria Events since Last Encounter Her creatinine has improved with catheter drainage and diuresis. She has had some leakage around the catheter but this resolved with anti-spasmodic agents. She is unhappy with the catheter and would like to have it removed. Objective Physical Examination ABDOMEN EXAM: Normal bowel sounds, BS Hyperactive, BS Hypoactive, Soft, Tenderness, Hepatospenomegaly, Mass, Hernia, Other (Her bladder is not distended ) Vital Signs/I&O Vital Signs Date Time Temp Pulse Resp B/P (MAP) Pulse Ox O2 Delivery O2 Flow Rate FiO2 02/27/19 08:24 79 130/48 02/27/19 06:00 99.0 17 97 I&O- Last 24 Hours up to 6 AM 02/27/19 05:59 Intake Total 1810 ml Output Total 250 ml Balance 1560 ml Laboratory Data Labs 24H Laboratory Tests 2 02/27/19 05:46: Nucleated Red Blood Cells % (auto) 0.0, Anion Gap 8, Glomerular Filtration Rate 20.3L, Blood Urea Nitrogen 58H, Creatinine 2.47H, Sodium Level 142, Potassium Level 4.8, Chloride Level 114H, Carbon Dioxide Level 20L, Calcium Level 8.4L CBC/BMP Laboratory Tests 02/26/19 12:10 02/27/19 00:07 02/27/19 05:46 Red Blood Count 2.45 L, Mean Corpuscular Volume 103.3 H, Mean Corpuscular Hemoglobin 32.2, Mean Corpuscular Hemoglobin Concent 31.2 L, Red Cell Distribution Width 15.2 H, Calcium Level 8.4 L Microbiology Microbiology 02/24/19 Urine Culture - Final, Complete Assessment/Plan Date Seen The patient was seen on 02/27/19. Plan/VTE VTE Prophylaxis Ordered?: No Plan/Urinary Catheter Urinary Catheter: D/C Desai (I will d/c her desai and follow her creatinine and CBC.) TOOTIE FRAUSTO MD Feb 27, 2019 10:25
--- NOTE | 2019-02-27 11:34 | REP ---
Renal ultrasound: Comparison is 02/25/2019. The right kidney measures 10.1 x 4.6 x 4.9 cm. Left kidney measures 10.6 x 5.5 x 5.9 cm. The kidneys are normal size X 88 cortical echogenicity is normal bilaterally. There is no hydronephrosis on the right. There is mild hydronephrosis on the left, unchanged. There is moderate dilatation of the proximal left ureter, unchanged. There are no renal calculi. There are no solid or cystic renal masses. Bladder: There is a Lizarraga catheter balloon the bladder. There is floating echogenic debris in the bladder, unchanged from the prior study. Impression: There is no change from the prior study, there is mild left hydronephrosis and mild dilatation of the proximal left ureter. There is flowing debris in the bladder. Electronically Signed by Zack Gray MD 02/27/2019 11:25 A
--- NOTE | 2019-02-27 13:05 | IPN ---
DATE: 02/27/2019 Patient is requesting Lizarraga catheter to be discontinued. Per urologist help desk consultant this weekend, Dr. Rivas, flushing the Lizarraga catheter yielded clear results. No recurrent hematuria. Patient's urine output overnight was 250 and 100, which was essentially minimal. IV fluids have been discontinued as of yesterday. Patient is anxious to have the Lizarraga removed. Per urology, no obstructive uropathy is noted as the patient is clearing well with flushing. Repeat ultrasound was ordered this morning. No fever or chills overnight. No shortness of breath, chest pain, pressure, tightness, paroxysmal nocturnal dyspnea (PND), orthopnea or exertional dyspnea. Temperature 98.8, pulse 75, respiratory rate 20, blood pressure 125/49. Generally, awake, alert, oriented times three. No respiratory distress. No jugular venous distention (JVD). No use of respiratory accessory muscles. Anicteric. No jaundice. Pupils round and reactive. No jugular venous distention, thyromegaly, or cervical lymphadenopathy. Lungs are diminished, clear to auscultation. No wheezing or rales. Heart: S1, S2, sinus rhythm. Abdomen: Obese, soft, nontender. Lizarraga catheter with gross hematuria in the bag but clears per urologist. Extremities: Chronic edema 2+ to the sacrum. LABORATORY DATA: White count 7, hemoglobin 7.9, hematocrit 25, platelet count 255. Sodium 142, potassium 4.8, chloride 114, bicarbonate 20, BUN 58, creatinine 2.47, glucose of 91. Urine culture 02/24/2019: No growth. ASSESSMENT AND PLAN: This is a 73-year-old female with stage III chronic kidney disease. Baseline creatinine 1.8. Admitted from [facility] for possible urinary stone and bladder mass for urological services. Review of CT by urologist, Dr. Longo, did not think that there was a urinary stone. Repeat ultrasound and IV fluids and Lizarraga were recommended by Dr. Longo. CURRENT ISSUES: 1. Moderate left hydroureteronephrosis with distended bladder on CT. No ureteral stones per Dr. Longo with recommendation for Lizarraga catheter, IV fluids, repeat ultrasound imaging or CT abdomen and pelvis, which was done today. Per Dr. Rivas, urologist, covering for Dr. Longo this weekend, no need for Lizarraga catheter or cystoscopy as there does not appear to be an obstructive uropathy. Patient cleared, did not have a current hematuria. Trial of voiding and discontinue Lizarraga catheter per urology. 2. Acute on chronic kidney disease. Baseline creatinine is 1.8, stage III. Per break and load operator, will continue to try IV fluids for now. If no improvement on the renal ultrasound, will obtain CT with IV contrast in the morning. 3. Blood loss anemia secondary to hematuria, status post two units of red blood cell (RBC) transfusion with subsequent hemoglobin of 7.9. Will check repeat one. If persists less than 8, may need a third unit of blood transfusion. 4. Morbid obesity. Body mass index (BMI) 47, complicating care. MTDD
[2019-02-27 14:00] VITALS: BP 130/60
[2019-02-27 18:00] VITALS: BP 126/45
[2019-02-27] MEDS: ALPRAZolam 0.25 MG TAB PO PRN (21:25)
[2019-02-27 22:00] VITALS: BP 142/62
[2019-02-28 02:00] VITALS: BP 131/57
[2019-02-28 06:00] VITALS: BP 132/65
[2019-02-28 06:09] LABS: HEMATOCRIT 26.4 % (36.0-47.0); HEMOGLOBIN 8.2 g/dl (12.0-15.5); MEAN CORPUSCULAR HEMOGLOBIN 32.2 pg (27.0-33.0); MEAN CORPUSCULAR HGB CONC 31.1 g/dl (32.0-36.5); MEAN CORPUSCULAR VOLUME 103.5 fl (80.0-96.0); PLATELET COUNT, AUTOMATED 208 10^3/uL (150-450); RED BLOOD COUNT 2.55 10^6/uL (4.00-5.40); WHITE BLOOD COUNT 6.4 10^3/uL (4.0-10.0)
[2019-02-28 06:36] LABS: CREATININE FOR GFR 2.32 MG/DL (0.55-1.30); GLOMERULAR FILTRATION RATE 21.8 (>39); POTASSIUM SERUM 4.6 MEQ/L (3.5-5.1)
[2019-02-28] MEDS ORDERED: LEVO250T12 PO (08:07)
[2019-02-28] MEDS: amLODIPine 5 MG TAB PO SCH (09:00)
[2019-02-28] MEDS: MEGESTROL 40 MG TAB PO SCH ×2 (09:37→20:11)
--- NOTE | 2019-02-28 11:20 | IPNPDOC ---
Subjective Review oF Systems Chief Complaint The patient is a 73-year-old female admitted with a reason for visit of Acute Renal Failure and hematuria Events since Last Encounter She has been voiding without a catheter but her urine remains bloody. She reports good FOS and believes that she empties. Her renal US yesterday shows s ome debris in the bladder. Objective Physical Examination ABDOMEN EXAM: Normal bowel sounds (Her bladder is not palpably distended), BS Hyperactive, BS Hypoactive, Soft, Tenderness, Hepatospenomegaly, Mass, Hernia, Other (Her bladder is not distended) Extremity Exam: Edema (Her edema has changed minimally) Vital Signs/I&O Vital Signs Date Time Temp Pulse Resp B/P (MAP) Pulse Ox O2 Delivery O2 Flow Rate FiO2 02/28/19 09:00 75 132/65 02/28/19 06:00 98.2 17 97 I&O- Last 24 Hours up to 6 AM 02/28/19 06:00 Intake Total 940 ml Output Total 850 ml Balance 90 ml Laboratory Data Labs 24H Laboratory Tests 2 02/28/19 05:46: Nucleated Red Blood Cells % (auto) 0.0, Anion Gap 8, Glomerular Filtration Rate 21.8L, Blood Urea Nitrogen 58H, Creatinine 2.32H, Sodium Level 143, Potassium Level 4.6, Chloride Level 117H, Carbon Dioxide Level 18L, Calcium Level 9.0 CBC/BMP Laboratory Tests 02/27/19 12:08 02/28/19 05:46 Red Blood Count 2.55 L, Mean Corpuscular Volume 103.5 H, Mean Corpuscular Hemoglobin 32.2, Mean Corpuscular Hemoglobin Concent 31.1 L, Red Cell Distribution Width 14.9 H, Calcium Level 9.0 Microbiology Microbiology 02/24/19 Urine Culture - Final, Complete Assessment/Plan Date Seen The patient was seen on 02/28/19. Plan/VTE VTE Prophylaxis Ordered?: No Plan/Urinary Catheter Urinary Catheter: D/C Desai (I will d/c her edsai and follow her creatinine and CBC.) Plan I am encouraged that she will eliminate the clots herself and not require intervention at this time. Given that her creatinine has improved, I will just observe at this time. TOOTIE FRAUSTO MD Feb 28, 2019 11:20
--- NOTE | 2019-02-28 12:48 | IPN ---
DATE OF VISIT: 02/28/2019 Miss Long is seen this morning on her bedside. She reports significant blood in her urine this morning but denies any fever or chills. She has no nausea or vomiting. Her Lizarraga catheter was removed yesterday, and she has been voiding without any significant problem. On physical examination, temperature 98.2 degrees Fahrenheit, heart rate 75 per minute, and respiratory rate 18 per minute. Blood pressure 132/65 mmHg and oxygen saturation 97% on room air. Head is atraumatic. Neck is supple and without jugular venous distention (JVD) or thyroid enlargement. Heart sounds are regular. Lungs clear to auscultation. Abdomen: Obese, soft, and nontender, and bowel sounds are normal. Extremities: Without any cyanosis or clubbing. Lower extremities have chronic hypertrophic skin but no pitting edema. Neurologically, she is awake, alert, and at her baseline mentation. Today's laboratories show WBC count 6.4, hemoglobin 8.2, and hematocrit 26.4. Platelets are 208. Sodium 143, potassium 4.6, CO2 18, BUN 58, and creatinine 2.32. Glucose 83 and calcium 9.0. PROBLEMS: 1. Acute renal failure superimposed on chronic kidney disease. She did have mild hydronephrosis and had a Lizarraga catheter placed. Her kidney function has improved with some intravenous (IV) fluid hydration and better drainage of her bladder. 2. Gross hematuria, most likely related to her bladder problem. Urology has seen her, however, urology has decided to not consider a cystoscopy at this point. I feel that cystoscopy will be helpful in order to make the diagnosis if she has any bladder malignancy. 3. Acute blood loss anemia. The patient continues to have gross hematuria with acute blood loss anemia. This is another reason why we are asking for a cystoscopy, as the patient has required transfusions. I will recommend another unit of packed red blood cells (RBCs) to be transfused today.
[2019-02-28 14:00] VITALS: BP 109/70
--- NOTE | 2019-02-28 14:46 | IPN ---
DATE: 02/28/2019 Patient continues to have gross hematuria after Lizarraga catheter has been discontinued. Remains a stage IV renal failure. Per trauma director, Dr. Pimentel, no plans for IV fluid hydration with recommendations to have urology reevaluate the case and potentially do a cystoscopy with clearance of debris. The patient's hemoglobin and hematocrit appears to be stable, but has decreased from 8.6 to 8.2 with gross hematuria at the bedside with plans for 1 unit RBC transfusion to be done today. The patient denies any paroxysmal nocturnal dyspnea (PND), orthopnea. Denies shortness of breath, chest pain, pressure or tightness, lightheadedness, dizziness, near syncopal episode, or dysuria, urgency or frequency, fever, chills or flank pain. PHYSICAL EXAMINATION: Temperature 98.2, pulse 75, respiratory rate 17, blood pressure 132/65, 97% on room air. Generally is awake, alert, oriented, answering questions appropriately. No jugular venous distention (JVD). No use of respiratory accessory muscles. Anicteric sclera. No jaundice. No cervical lymphadenopathy. Moist mucous membranes. Lungs are diminished, but clear to auscultation. Distant breath sounds. Heart S1, S2, sinus rhythm. Abdomen is obese, soft, nontender, nondistended with no CVA tenderness. No hepatosplenomegaly. No abdominal bruits. Extremities chronic edema with chronic venous stasis changes. LABORATORY DATA: White count 6.4, hemoglobin 8.2, hematocrit 26, platelet count 208. Sodium 143, potassium 4.6, chloride 117, bicarbonate 18, BUN 58, creatinine 2.32, glucose of 83. ASSESSMENT AND PLAN: This is a 73-year-old female admitted due to acute on chronic renal failure, baseline creatinine is stage III, 1.8 creatinine, admitted with a 3.4 creatinine, found to have debris in the bladder, and gross hematuria. CURRENT ISSUES: 1. Acute on chronic renal failure. Currently not at baseline. Creatinine is still stage IV despite IV fluids and Lizarraga catheter placement. Per nephrology, no plans of IV fluid hydration. Repeat ultrasound continues to show mild hydroureteronephrosis. Defer to urology for cystoscopy evacuation of debris. Per Dr. Rivas recommendations, the patient has been voiding well without obstruction, without the urinary catheter, but continues to have gross hematuria. Renal ultrasound continues to show debris in the bladder with plans for observation and no cystoscopy and evacuation of debris. The patient's discharge has been held to continue with observation for now. 2. Mild left hydroureteronephrosis on repeat ultrasound secondary to debris from hematuria. Still with gross bright read blood with urination. Per Dr. Rivas, urologist county home demonstrator, since the patient is voiding well despite not having a Lizarraga catheter, the patient may be continued on observation and no plans for cystoscopy or removal of debris in he bladder. At this time we are monitoring hemoglobin and hematocrit, we are transfusing more RBCs. 3. Acute blood loss anemia secondary to gross hematuria, status post 2 units of red blood cell (RBC) transfusion. Still with decreasing hemoglobin to 8.2 from 8.6. Will continue to transfuse and defer to urology if recommendations should change. 4. Deep vein thrombosis (DVT) prophylaxis with compression stockings. 5. Hypertension controlled on Norvasc. 6. Obesity. Body mass index (BMI) 47.4, complicating care. MTDD
--- NOTE | 2019-02-28 20:27 | IPN ---
DATE OF VISIT: 02/27/2019 HISTORY: Mrs. Siddiqui is seen this on her bedside. She just came back from ultrasound and her Lizarraga catheter has been removed. She is feeling much better and denies any nausea, vomiting, dyspnea or chest pain. PHYSICAL EXAMINATION: VITAL SIGNS: Temperature 98.8 degrees Fahrenheit, heart rate 75 per minute and respiratory rate 20 per minute. Blood pressure 125/49 mmHg and oxygen saturation 98% on room air. HEAD: Head is atraumatic. NECK: Neck is supple and without jugular venous distention (JVD) or thyroid enlargement. HEART: Sounds are regular. LUNGS: Clear to auscultation. ABDOMEN: Soft and nontender and bowel sounds are present. EXTREMITIES: Extremities with chronic hypertrophic skin changes on lower extremities. She has no cyanosis or clubbing. NEUROLOGIC: Neurologically she is awake, alert and oriented times three. LABORATORY DATA: Today's labs show WBC count 7.1, hemoglobin 7.9 and hematocrit 25.3. A repeat hemoglobin at noon is 8.6. Sodium 142, potassium 4.8, CO2 20, BUN 58 and creatinine 2.47. Her iron level was 48 on the 4th and saturation 23.6%. She had a follow-up renal and bladder ultrasound which was essentially unchanged compared to her prior study. She has mild left-sided hydronephrosis and mild dilatation of the proximal left ureter. There is flowing debris in the bladder. PROBLEMS: 1. Acute renal failure superimposed on chronic kidney disease. Kidney function did improve and now seems to be leveled off. She has no uremic symptoms and electrolytes are stable. 2. Hematuria and possible bladder mass. Her renal ultrasound does not seem to be consistent with a bladder mass. She does have some debris in the bladder and has been seen by urology. Urology is planning for an outpatient cystoscopy. There do not feel that any urgent intervention is needed at this point. 3. Anemia. Her anemia has improved since admission with a transfusion. At this point there is no emergent need for further transfusion. She will need to be followed up as an outpatient. 4. Urinary tract infection (UTI). This seems to be doing well and currently afebrile. She is on levofloxacin. 5. Hypertension. Blood pressure is reasonably well-controlled on low-dose amlodipine.
[2019-02-28 22:00] VITALS: BP 143/59
[2019-03-01 02:00] VITALS: BP 131/56
[2019-03-01 06:00] VITALS: BP 134/56
[2019-03-01] MEDS ORDERED: LevoFLOXacin 250 MG TABLET PO SCH (06:00)
[2019-03-01 06:51] LABS: HEMATOCRIT 29.4 % (36.0-47.0); HEMOGLOBIN 9.4 g/dl (12.0-15.5); MEAN CORPUSCULAR HEMOGLOBIN 32.5 pg (27.0-33.0); MEAN CORPUSCULAR VOLUME 101.7 fl (80.0-96.0); PLATELET COUNT, AUTOMATED 244 10^3/uL (150-450); RED BLOOD COUNT 2.89 10^6/uL (4.00-5.40); WHITE BLOOD COUNT 6.6 10^3/uL (4.0-10.0)
[2019-03-01 07:16] LABS: CREATININE FOR GFR 2.45 MG/DL (0.55-1.30); GLOMERULAR FILTRATION RATE 20.5 (>39); POTASSIUM SERUM 4.7 MEQ/L (3.5-5.1)
[2019-03-01 08:00] VITALS: BP 115/52
[2019-03-01 08:26] VITALS: BP 115/52
[2019-03-01] MEDS: MEGESTROL 40 MG TAB PO SCH (08:26)
[2019-03-01] MEDS: amLODIPine 5 MG TAB PO SCH (08:26)
[2019-03-01] MEDS ORDERED: SODIUM BICARBONATE 325 MG TAB PO SCH (09:00)
[2019-03-01 10:00] VITALS: BP 126/59
[2019-03-01] MEDS ORDERED: SODI650T PO (10:29)
--- NOTE | 2019-03-01 11:09 | DSES ---
DATE OF ADMISSION: 02/24/2019 DATE OF DISCHARGE: CONSULTANTS: Dr. Rivas UROLOGIST: Dr. Longo FIRST LINE PRODUCTION SUPERVISOR: Dr. Pimentel PRIMARY DISCHARGE DIAGNOSES: 1. Gross hematuria. 2. Acute blood loss anemia. 3. Acute renal failure superimposed on chronic kidney disease. 4. Urinary tract infection. 5. Acute metabolic acidosis. 6. Hyperkalemia. 7. Hypernatremia. 8. Hyperphosphatemia. 9. Iron deficiency. 10. Anemia of chronic disease and blood loss anemia. 11. Acute metabolic acidosis. 12. Obesity, body mass index (BMI) of 47. DISCHARGE MEDICATIONS: - Levaquin 250 every 48 hours for three tablets - sodium bicarbonate 650 four times a day for 10 days - Norvasc 5 daily - vitamin D 1000 units daily - vitamin B2 1000 mcg daily - Vitamin D 50,000 units weekly - megestrol 80 mg twice a day The patient's Lasix has been discontinued. HOSPITAL COURSE: This is a 73-year-old female transferred from [facility] where she was noted to have mild left hydroureter nephrosis, possible bladder mass and kidney stone with gross hematuria. The patient was transferred to [facility] for urologic services. Per Dr. Longo, Lizarraga catheter was placed and IV fluid hydration. Presenting creatinine was 3.53, discharge creatinine 2.45. Despite a total of 5 liters of IV fluids over the past four days, the patient's creatinine had remained at 2.45. She continued to have gross hematuria and was treated with Levaquin renal dosed for presumed infection. Repeat renal ultrasound two days after Lizarraga catheter was placed continues to show left hydronephrosis. Despite three units of red blood cell (RBC) transfusion, urology did no recommend any cystoscopy during this admission and recommended discharge home and cystoscopy as outpatient. The patient was thought to have a bladder mass and was clearing when irrigated through the Lizarraga catheter which was discontinued. She continued to put out urine output of 1.2 liters and 350 for the past 2 days prior to discharge and was not felt to be obstructed. Due to metabolic acidosis, sodium bicarbonate was given four times a day and to continue with this dose as outpatient and followup with Dr. Pimentel as well as Dr. Rivas. LABS ON DISCHARGE: White count 6.6, hemoglobin 9.4, hematocrit 29, platelet count 244. Sodium 143, potassium 4.7, chloride 116, bicarbonate 16, BUN 56, creatinine 2.45, glucose 89. Complement levels are normal. Urine culture no growth. Ultrasound on 02/25/2019 with mild left hydronephrosis. On 02/27/2019, renal ultrasound with debris in the bladder, no change from prior study, mild left hydronephrosis, mild dilatation of proximal left ureter, Lizarraga catheter in the bladder, floating echogenic debris in the bladder unchanged from prior study. TIME SPENT ON DISCHARGE: 30 minutes. MTDD
--- NOTE | 2019-03-01 11:17 | IPNPDOC ---
Date Seen The patient was seen on 03/01/19. Progress Note SUBJECTIVE: Patient was seen and examined at the bedside this morning. She is feeling better with no issues reported. She is to be discharged today and will follow up with Urology outpatient. OBJECTIVE PHYSICAL EXAMINATION: VITAL SIGNS: Please see below. GENERAL APPEARANCE: sitting up in bed, obese female appearing stated age and in no acute distress HEENT: EOMI, PERRLA, neck is supple with no lymphadenopathy or thyromegaly RESPIRATORY: some faint crackles are appreciated at the bases bilaterally; otherwise no adventitious breath sounds can be heard CARDIOVASCULAR: RRR without any murmurs/rubs/gallops ABDOMEN: soft, slightly tender to palpation in LLQ, +BS EXTREMITIES: very largely edematous legs with evidence of chronic edema and thick scaly skin NEUROLOGICAL: No focal deficits appreciated PSYCHIATRIC: normal mood, somewhat anxious affect LABORATORY DATA: Please see below. ASSESSMENT/PLAN: Trish Siddiqui is a 73 YO F with history of CKD III found to be anemic with hgb 7.4 with an ROWAN and new pelvic mass. The patient also has hydronephrosis of her left kidney possibly indicating obstruction. 1. Bladder mass and hematuria: -Repeat renal US basically unchanged from admission. It appears she has some debris in her bladder that she will need to clear. Urology has been following and suspect that she will clear it on her own. She will be seen outpatient for a cystoscopy. 2. Acute renal failure: -Cr improved and stable at 2.4 today -Electrolytes WNL 3. Anemia: likely multifactorial (blood loss vs anemia of Chronic kidney disease): -Hgb stable at 9.4 today -S/p 2U pRBCs transfusion. -The patient is still having hematuria, most likely from bleeding bladder mass, so will continue to monitor H/H 4. Normal anion gap metabolic acidosis: Secondary to acute renal failure -Resolved. 5. Hypertension: -Continue Amlodipine Dispo: Given that the patient's renal function and fluid status has improved she is optimized from Nephrology standpoint and cleared for discharge. She is to follow up with Urology and Nephrology within the next few weeks. VS, I&O, 24H, Fishbone Vital Signs/I&O Vital Signs Date Time Temp Pulse Resp B/P (MAP) Pulse Ox O2 Delivery O2 Flow Rate FiO2 03/01/19 10:00 98.6 90 18 126/59 (81 97 I&O- Last 24 Hours up to 6 AM 03/01/19 06:00 Intake Total 1200 ml Output Total 1150 ml Balance 50 ml Laboratory Data 24H LABS Laboratory Tests 2 03/01/19 06:28: Nucleated Red Blood Cells % (auto) 0.0, Anion Gap 11, Glomerular Filtration Rate 20.5L, Blood Urea Nitrogen 56H, Creatinine 2.45H, Sodium Level 143, Potassium Level 4.7, Chloride Level 116H, Carbon Dioxide Level 16L, Calcium Level 9.0 CBC/BMP Laboratory Tests 03/01/19 06:28 Red Blood Count 2.89 L, Mean Corpuscular Volume 101.7 H, Mean Corpuscular Hemoglobin 32.5, Mean Corpuscular Hemoglobin Concent 32.0, Red Cell Distribution Width 15.6 H, Calcium Level 9.0 Microbiology Microbiology 02/24/19 Urine Culture - Final, Complete GME ATTESTATION GME ATTESTATION My faculty preceptor for this patient encounter was physically present during the encounter and was fully available. All aspects of the patient interview, examination, medical decision making process, and medical care plan development were reviewed and approved by the faculty preceptor. The faculty preceptor is aware and concurs with the plan as stated in the body of this note and will attest to such by his/her cosignature. MARU SILVERIO MD Mar 01, 2019 11:17
[2019-03-01 12:05] LABS: ALBUMIN % 45.2 % (55.8-66.1); ALPHA-2-GLOBULINS % 15.7 % (7.1-11.8)
[2019-03-01 12:06] LABS: ALBUMIN 3.12 GM/DL (3.29-5.55); ALPHA-1-GLOBULINS 0.48 GM/DL (0.17-0.41); ALPHA-2-GLOBULINS 1.08 GM/DL (0.42-0.99); BETA-1-GLOBULINS 0.44 GM/DL (0.28-0.60); BETA-1-GLOBULINS % 6.4 % (4.7-7.2); BETA-2-GLOBULINS 0.66 GM/DL (0.19-0.55); BETA-2-GLOBULINS % 9.6 % (3.2-6.5); GAMMA GLOBULIN % 16.1 % (11.1-18.8); GAMMA GLOBULINS 1.11 GM/DL (0.65-1.58)
[2019-03-03 11:08] LABS: UPEP INTERPRETATION NO M-SPIKE NOTED; URINE VOLUME RANDOM ML
== END 2019-03-01 10:41 | disposition home or self-care (01) | DRG 696 ==
LOC: M MSPAV 19:30
PROVIDERS: ADMIT Internal Medicine; ATTEND General Practice
PROC: 30233N1 Transfusion of Nonautologous Red Blood Cells into Peripheral Vein, Percutaneous Approach (ICD-10-PCS; principal; 2019-02-25)
DX: R31.0 Gross hematuria (principal); E87.2 Acidosis; D62 Acute posthemorrhagic anemia; Z68.42 Body mass index [BMI] 45.0-49.9, adult; E87.0 Hyperosmolality and hypernatremia; N13.30 Unspecified hydronephrosis; N17.9 Acute kidney failure, unspecified; N18.3 Chronic kidney disease, stage 3 (moderate); E66.9 Obesity, unspecified; N39.0 Urinary tract infection, site not specified; E87.5 Hyperkalemia; E83.39 Other disorders of phosphorus metabolism; Z79.899 Other long term (current) drug therapy; D63.1 Anemia in chronic kidney disease

== ENCOUNTER → 2019-03-10 | Outpatient (REF) | payer MEDICARE ==
[~2019-03-10] MED LIST: AMLO5TAB6 PO; B-12100010 PO; D-10TAB3 PO; LASI40TA9 PO; LEVO250T12 PO; MEGE40TA PO; SODI650T PO; VITA50005 PO
== END ==
LOC: M LAB REF 13:05
PROVIDERS: ATTEND Nurse Practitioner Family
DX: N39.0 Urinary tract infection, site not specified (principal)

== ENCOUNTER 2019-03-22 09:37 | Inpatient (IN) | payer MEDICARE ==
[~2019-03-22] VITALS: Ht 165.1 cm; Wt 131.2 kg
[2019-03-22] MEDS ORDERED: TAMS1CAP17 PO (09:45)
[2019-03-22 11:29] LABS: HEMATOCRIT 28.1 % (36.0-47.0); HEMOGLOBIN 8.8 g/dl (12.0-15.5); MEAN CORPUSCULAR HEMOGLOBIN 31.4 pg (27.0-33.0); MEAN CORPUSCULAR HGB CONC 31.3 g/dl (32.0-36.5); MEAN CORPUSCULAR VOLUME 100.4 fl (80.0-96.0); PLATELET COUNT, AUTOMATED 339 10^3/uL (150-450)
[2019-03-22 11:32] LABS: CALCIUM LEVEL 8.7 MG/DL (8.8-10.2); CREATININE FOR GFR 3.66 MG/DL (0.55-1.30); GLOMERULAR FILTRATION RATE 12.9 (>39); POTASSIUM SERUM 4.8 MEQ/L (3.5-5.1)
--- NOTE | 2019-03-22 11:46 | REP ---
Clinical: Preoperative assessment . Comparison: None . Findings: The mediastinum and cardiac silhouette are stable and within normal limits for portable technique. The lung laird demonstrate chronic changes without acute consolidation, effusion, or pneumothorax. Skeletal structures are intact. Impression: No acute cardiopulmonary process appreciated. Electronically Signed by Isai Bennett MD 03/22/2019 11:37 A
[2019-03-22] MEDS ORDERED: SODI325T9 PO (12:14)
[2019-03-22 14:50] VITALS: BP 134/75
--- NOTE | 2019-03-22 15:31 | HPEPDOC ---
[facility] Medical History & Physical Date of Admission Mar 22, 2019 Date of Service: Mar 22, 2019 Attending Physician: MEDARDO SOTELO MD History and Physical CHIEF COMPLAINT: Sent by director of primary HISTORY OF PRESENT ILLNESS: Trish Siddiqui is a 73-year-old white female presenting to the ER after being referred by her director of primary due to worsening kidney function. She explains that she's been having continued hematuria and left-sided flank pain. She reports the pain as an 8 out of 10, and does not radi ate. She was admitted to [facility] on the 3rd of this month for similar complaints. She says she has a bladder mass that gives her kidney problems and was scheduled for tomorrow to have a ureteral stent placement . She says she has a catheter in place. She denies any chest pain, shortness of breath, nausea, vomiting, weakness, dizziness, fevers, chills, night sweats. PAST MEDICAL HISTORY: 1. Stage 3 CKD 2. Chronic anemia 3. ? Uterine/Ovarian cancer Denies history of NH, Hyperlipidemia, CVA, or diabetes PAST SURGICAL HISTORY: 1. s/p appendectomy. 2. s/p hysterectomy 3. s/p R. Cataract surgery SOCIAL HISTORY: Denies smoking history Denies Alcohol use Denies illicit drug use FAMILY HISTORY: Father: " of emphysema" Mother: No known medical history ALLERGIES: Please see below. REVIEW OF SYSTEMS: CONSTITUTIONAL: Denies fever, chills, weight loss, night sweats HEENT:. He denies any dizziness, visual changes, lightheadedness, difficulty swallowing. CARDIOVASCULAR: Bilateral lower limb swelling. Denies any chest pain, palpitations. RESPIRATORY: Denies shortness of breath, pain on inspiration, cough or wheezing. GASTROINTESTINAL:. Denies any abdominal pain, difficulty defecating, changes in stool consistency, melena or efrain blood. GENITOURINARY: Hematuria, frequency, urgency and L sided flank pain. Denies dysuria SKIN: Bilateral lower limb, skin changes. MUSCULOSKELETAL:. Unable to walk NEUROLOGICAL: Denies changes in mental status, no focal deficits. PSYCHIATRIC: Denies changes in mood. HOME MEDICATIONS: Please see below. PHYSICAL EXAMINATION: VITAL SIGNS: See below GENERAL: Patient is obese, pleasant and cooperative, sitting up in bed, alert and oriented in no acute distress HEENT: Normocephalic, atraumatic. No conjunctival pallor noted No scleral icterus. PERRLA. EOMI. no nasal discharge. No tracheal deviation. No obvious swollen lymph nodes SKIN: Bilateral lower limb skin changes secondary to chronic edema CARDIOVASCULAR: Regular rate and rhythm. Normal S1 and S2. No murmurs, gallops or rubs noted RESPIRATORY: Lungs clear to auscultation bilaterally. ABDOMINAL:. No obvious lesions noted. Normal bowel sounds in all 4 quadrants. No pain, tenderness, guarding or rigidity GENITOURINARY: No CVA tenderness noted. Indwelling catheter. EXTREMITIES:. 2/4 pulses noted throughout. Normal capillary refill. 1+ pitting edema bilaterally lower extremities. Additional nonpitting edema bilaterally lower extremities NEUROLOGICAL: A&O x3. Spontaneous movements of upper extremities. 5/5 muscle strength in upper extremities. 2/5 muscle strength in lower limbs. No focal deficits noted PSYCHOLOGICAL: Mood and affect were appropriate LABORATORY DATA: See below. IMAGIN03/22/2019 CXR: No acute cardiopulmonary process appreciated MICROBIOLOGY: Please see below. ASSESSMENT: This is a 73-year-old white female with past medical history of stage III CKD, known bladder mass and hysterectomy referred to the ER by director of primary for hematuria and flank pain found to have leukocytosis and evidence of ROWAN on CKD. PLAN: 1. Pylenephritis -Flank pain,oliguria, hematuria and leukocytosis of 18 -Empiric IV ceftriaxone. -UA pending with reflex culture, blood cultures pending -Renal U/S ordered. -IV fluids 2. Gross hematuria -Differential includes bladder cancer versus nephrolithiasis -CT on 02/24/19 showed uterine vs. bladder mass 5mm obstructing UVJ junction, calculi and moderate left hydroureter -UA pending with reflex culture 3. ROWAN on CKD -baseline creatinine around 2.4 -Creatinine at 3.66 today -Urology consulted, pt scheduled for ureteral stent placement tomorrow with Dr. Longo. Appreciate their input and recommendations. -Nephrology consulted, appreciate their input and recommendations 4. Multifactorial Anemia -Hbg at 8.8 -Multiple contributing factors including hematuria, history of anemia of chronic disease from 2 daily, and elevated MCV on CBC which suggests a macrocytic anemia component -Monitor CBC daily 5. Abdominal mass with urinary obstruction - Urinary catheter to help relieve obstruction, likely ureteral stent placement tomorrow Disposition: Admitted to hospital, likely ureteral stent placement tomorrow by Dr. Longo I performed a history and physical examination of the patient and discussed their management with the above documenter. I reviewed the note and agree with the documented findings and plan of care. Vital Signs Vital Signs Date Time Temp Pulse Resp B/P (MAP) Pulse Ox O2 Delivery O2 Flow Rate FiO2 03/22/19 14:15 90 113/52 (72) 98 Room Air 03/22/19 09:38 98.4 18 Laboratory Data Labs 24H Laboratory Tests 2 03/22/19 10:11: Nucleated Red Blood Cells % (auto) 0.0, Anion Gap 11, Glomerular Filtration Rate 12.9L, Calcium Level 8.7L 03/22/19 13:04: Lab Scanned Report LAB OTHER CBC/BMP Laboratory Tests 03/22/19 10:11 Home Medications Scheduled Amlodipine Besylate (Amlodipine Besylate) 5 Mg Tablet, 5 MG PO DAILY Cholecalciferol (Vitamin D3) (Vitamin D3) 1,000 Unit Tablet, 1,000 UNIT PO DAILY Cyanocobalamin (Vitamin B-12) (Vitamin B-12) 1,000 Mcg Capsule, 1,000 MCG PO DAILY Ergocalciferol (Vitamin D2) (Vitamin D2) 50,000 Unit Capsule, 50,000 UNIT PO 1XWK SUNDAYS Megestrol Acetate (Megestrol Acetate) 40 Mg Tablet, 80 MG PO BID Sodium Bicarbonate (Sodium Bicarbonate) 325 Mg Tablet, 975 MG PO TID Tamsulosin Hcl (Tamsulosin HCl) 0.4 Mg Capsule, 0.4 MG PO DAILY Allergies Coded Allergies: No Known Allergies (Unverified , 02/24/19) A-FIB/CHADSVASC A-FIB History Current/History of A-Fib/PAF?: No OLIVA ADAMS OMS-3 Mar 22, 2019 15:30 JAVIER LIZARRAGA PGY-1 Mar 22, 2019 18:13 MEDARDO SOTELO MD Mar 23, 2019 12:34
[2019-03-22] MEDS: CYANOCOBALAMIN 500 MCG TAB PO SCH (16:24)
[2019-03-22] MEDS: SODIUM BICARBONATE 325 MG TAB PO SCH ×2 (16:25→20:47)
[2019-03-22] MEDS: VITAMIN D 1,000 INTERNATIONAL UNITS TABLET PO SCH (16:25)
[2019-03-22] MEDS: NS 1,000 ML IV SCH (16:26)
[2019-03-22] MEDS: amLODIPine 5 MG TAB PO SCH (16:26)
[2019-03-22] MEDS: TAMSULOSIN 0.4 MG CAP PO SCH (16:26)
--- NOTE | 2019-03-22 18:29 | SMCUROLCON ---
Urology Consultation General Date of Consultation 03/22/19 Reason For Consultation This patient is seen for Bladder Mass. History of Present Illness This is a 73 y/o F admitted to the hospital a few wks ago w/ hematuria and acute on chronic kidney failure, admitted again today for acute kidney injury after being found to have a rise in Cr to 3.7 at her nephrology appt today. The patient was found to have a possible bladder mass and mild to moderate left hydroureteronephrosis on CT scan a few wks ago. Her hematuria improved on its own and her Cr improved w/ hydration and w/ temporary bladder drainage. She was evaluated in my office and was scheduled for cystoscopy and left ureteroscopy next month. She notes that since she was last seen, she has had on and off mild hematuria. She denies flank or abdominal pain. She denies fevers or chills. She notes that she has tried to keep herself hydrated. She denies dysuria or any difficulty voiding. Past Medical History Medical History CKD Surgical Hstory hysterectomy, appendectomy, cataract surgery Medications Current Medications Current Medications Medications (Trade) Dose Ordered Sig/Zenia Route PRN Reason Start Time Stop Time Status Last Admin Dose Admin Acetaminophen (Tylenol Tab) 650 mg Q4H PRN PO PAIN OR FEVER 03/22/19 14:00 Amlodipine Besylate (Norvasc) 5 mg DAILY PO 03/22/19 09:00 03/22/19 16:26 Ceftriaxone Sodium 1 gm/ Dextrose 50 ml @ 100 mls/hr Q24H IV 03/22/19 18:30 Cyanocobalamin (Vitamin B12) 1,000 mcg DAILY PO 03/22/19 09:00 03/22/19 16:24 Home Med (Med Rec Complete!) ASDIRECTED XX 03/22/19 12:15 03/22/19 12:18 DC Megestrol Acetate (Megace) 80 mg BID PO 03/22/19 21:00 Sodium Bicarbonate (Sodium Bicarbonate) 975 mg TID PO 03/22/19 16:00 03/22/19 16:25 Sodium Chloride 1,000 ml @ 100 mls/hr Q10H IV 03/22/19 14:45 03/22/19 16:26 Tamsulosin HCl (Flomax) 0.4 mg DAILY PO 03/22/19 09:00 03/22/19 16:26 Vitamin D (Vitamin D) 1,000 units DAILY PO 03/22/19 09:00 03/22/19 16:25 Allergies Allergies: Coded Allergies: No Known Allergies (Unverified , 02/24/19) Review of Systems Constitutional: Denies: Fever, Chills, Sweats, Weakness, Malaise ENT: Denies: Head Aches, Sore Throat, Epistaxis Pulmonary: Denies: Dyspnea, Cough, Pleuritic Chest Pain, Other Symptoms Cardiovascular: Denies Chest Pain, Denies Palpitations Gastrointestinal: Denies: Nausea, Vomiting, Abdominal Pain Genitourinary: Reports: Hematuria Musculoskeletal: Denies: Neck Pain, Back Pain Psych: Reports: Mood Normal Physical Examination General Exam: Alert, Cooperative, No Acute Distress Chest Exam: Clear to auscultation Heart Exam: Regular Rhythm Abdomen Exam: Soft; No: Tenderness Skin Exam: Nl turgor and temperature Psych Exam: Mental status NL, Mood NL Vital Signs/I&O Vital Signs Date Time Temp Pulse Resp B/P (MAP) Pulse Ox O2 Delivery O2 Flow Rate FiO2 03/22/19 16:26 94 116/56 03/22/19 14:50 98.2 17 100 Room Air Laboratory Data 24H Labs Laboratory Tests 2 03/22/19 10:11: Nucleated Red Blood Cells % (auto) 0.0, Anion Gap 11, Glomerular Filtration Rate 12.9L, Calcium Level 8.7L 03/22/19 13:04: Lab Scanned Report LAB OTHER CBC/BMP Laboratory Tests 03/22/19 10:11 Microbiology Microbiology 03/22/19 Blood Culture, Received Pending 03/22/19 Blood Culture, Received Pending Assessment This is a 73 y/o F admitted w/ a possible bladder mass and left hydro based on previous imaging, admitted w/ acute on chronic renal failure. A catheter was pl aced in the ER. It is not clear how much has drained since catheter placement, but the patient has had a large amount of leakage around the catheter since it was placed. There is a small amount of pink urine in the bag. She was bladder scanned for 100cc w/ the catheter in place. I recommended removing the catheter as it seems she might have been emptying ok w/o it and is having a lot of leakag e presumably due to bladder spasms w/ it in place. A renal US was just obtained and results are pending. I recommended that we take her to the OR tomorrow for cystoscopy, possible transurethral resection of bladder tumor, possible left ureteroscopy, and left ureteral stent placement. She agreed to proceed w/ this. She will need to be optimized medically prior to proceeding w/ surgery. Plan - patient admitted to the hospitalist service - please optimize for surgery tal orrow afternoon - d/c Lizarraga - send urine for UA and culture - will start her on rocephin for now - NPO at midnight - plan for surgery tomorrow - will obtain consent tomorrow ABHISHEK ATKINS MD Mar 22, 2019 18:29
[2019-03-22] MEDS: cefTRIAXone SOD 1 GM in D5W MINI-BAG PLUS 50 ML IV SCH (18:35)
[2019-03-22] MEDS ORDERED: MEGESTROL 40 MG TAB PO SCH (21:00)
[2019-03-22 22:00] VITALS: BP 104/58
--- NOTE | 2019-03-22 22:41 | ECGEPIP ---
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
[2019-03-23] VITALS (14 sets, daily range): BP systolic 106–147; BP diastolic 54–66
[2019-03-23] MEDS: NS 1,000 ML IV SCH ×2 (03:24→11:25)
[2019-03-23 06:11] LABS: HEMOGLOBIN 7.4 g/dl (12.0-15.5); MEAN CORPUSCULAR HEMOGLOBIN 31.9 pg (27.0-33.0); MEAN CORPUSCULAR HGB CONC 32.2 g/dl (32.0-36.5); MEAN CORPUSCULAR VOLUME 99.1 fl (80.0-96.0); PLATELET COUNT, AUTOMATED 286 10^3/uL (150-450); RED BLOOD COUNT 2.32 10^6/uL (4.00-5.40); WHITE BLOOD COUNT 16.7 10^3/uL (4.0-10.0)
[2019-03-23 06:29] LABS: CALCIUM LEVEL 7.9 MG/DL (8.8-10.2); CREATININE FOR GFR 3.68 MG/DL (0.55-1.30); GLOMERULAR FILTRATION RATE 12.8 (>39); POTASSIUM SERUM 4.5 MEQ/L (3.5-5.1)
--- NOTE | 2019-03-23 08:53 | REP ---
Clinical: History of bladder mass. Evaluate for hydronephrosis. Technique: Real time duff scale ultrasound examination using curved array transducer. Findings: Right kidney is normal in reniform shape and measures 11.1 x 6.6 x 5.2 cm with cortical thinning and moderate hydronephrosis/hydroureter. No obvious cystic or renal mass lesion. Left kidney is normal in reniform shape and measures 8.7 x 4.7 x 5.8 cm with cortical thinning and moderate hydronephrosis/hydroureter. No obvious cystic or renal mass lesion. Lizarraga catheter identified within collapsed bladder. The 12.1 x 11.9 x 9.7 cm incompletely evaluated bladder mass is identified. Impression: 1. Moderate bilateral hydronephrosis and cortical thinning consistent with chronic renal disease. 2. 12 cm bladder mass. Electronically Signed by Isai Bennett MD 03/23/2019 08:44 A
--- NOTE | 2019-03-23 09:29 | IPNPDOC ---
Date Seen The patient was seen on 03/23/19. Progress Note SUBJECTIVE: Patient reports continuing left-sided flank pain that is now progressed to radiate periumbilically. She still rates it at an 8/10. She explains since her catheter was removed, she has had multiple trips to the bathroom with only a small amount of voiding. Patient has had no trouble having a bowel movement. She was aware and understood the procedure she is scheduled to undergo this afternoon with Dr. Longo. She explained she is a bit scared, however, understands the benefits. Additionally, she understood and consented to transfusion of 2 units of PRBCs considering the finding of her reduced H/H and need for surgery this afternoon. She denies fevers, chills, night sweats, chest pain, shortness of breath, nausea, vomiting, dizziness, weakness or numbness. OBJECTIVE PHYSICAL EXAMINATION: VITAL SIGNS: See below GENERAL: Patient is obese, pleasant and cooperative, sitting up in bed, alert and oriented in no acute distress HEENT: Normocephalic, atraumatic. No conjunctival pallor noted. No scleral icterus. PERRLA. EOMI. no nasal discharge. No tracheal deviation. No obvious swollen lymph nodes SKIN: Bilateral lower limb skin changes secondary to chronic edema CARDIOVASCULAR: Regular rate and rhythm. Normal S1 and S2. No murmurs, gallops or rubs noted RESPIRATORY: Lungs clear to auscultation bilaterally. ABDOMINAL:. No obvious lesions noted. Normal bowel sounds in all 4 quadrants. Pain to light and deep palpation along the left flank continuing towards the periumbilical area. No guarding or rigidity noted GENITOURINARY: No CVA tenderness noted. EXTREMITIES:. 2/4 pulses noted throughout. Normal capillary refill. 1+ pitting edema bilaterally lower extremities. Additional nonpitting edema bilaterally lower extremities NEUROLOGICAL: A&O x3. Spontaneous movements of upper extremities. 5/5 muscle strength in upper extremities. 2/5 muscle strength in lower limbs. No focal deficits noted PSYCHOLOGICAL: Mood and affect were appropriate LABORATORY DATA, MICROBIOLOGY: Please see below. IMAGIN03/22/2019 CXR: No acute cardiopulmonary process appreciated 03/22/2019 renal ultrasound: Moderate bilateral hydronephrosis and cortical thinning consistent with chronic renal disease. 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 PROBLEMS: 1. Pylenephritis vs. Hydronephrosis -Flank pain,oliguria, hematuria and improving leukocytosis of 16.7 -Empiric IV ceftriaxone. -Urine Cx pending, blood cultures pending -Renal U/S shows b/l hydro + cortical thinning consistent with CKD. -IV fluids 2. Gross hematuria -12 cm bladder mass noted on Renal U/S -CT on 02/24/19 showed uterine vs. bladder mass 5mm obstructing UVJ junction, calculi and moderate left hydroureter -UA demonstrates TNTC WBC and RBC, 2+ Leuk Est,3+ protein, Negative Nitrites and bilirubin. -Urine Cx pending 3. ROWAN on CKD -baseline creatinine around 2.4 -Creatinine at 3.68 today, stable from yesterday -Urology consulted, pt scheduled for cystoscopy, possible transurethral resection of bladder tumor, possible left ureteroscopy and left ureteral stent placement via Dr. Longo. Appreciate their input and recommendations. -Nephrology consulted, appreciate their input and recommendations 4. Multifactorial Anemia -Hbg at 7.4 -Multiple contributing factors including hematuria, history of anemia of chronic disease from 2 daily, and elevated MCV on CBC which suggests a macrocytic anemia component -Pt consented and will receive 2 units of PRBCs prior to cystoscopic procedure 5. Abdominal mass with urinary obstruction -See above 6. Morbid obesity. Patient's BMI 48.4, complicates care DVT prophylaxis: Teds and SCDs DISPOSITION: Scheduled for cystoscopic procedure this afternoon with Dr. Longo I saw and evaluated the patient. I agree with the findings and plan of care as documented in the above note VS, I&O, 24H, Fishbone Vital Signs/I&O Vital Signs Date Time Temp Pulse Resp B/P (MAP) Pulse Ox O2 Delivery O2 Flow Rate FiO2 03/23/19 06:00 97.9 58 20 106/57 (73) 97 03/22/19 14:50 Room Air I&O- Last 24 Hours up to 6 AM 03/23/19 06:00 Intake Total 1630 ml Output Total 225 ml Balance 1405 ml Laboratory Data 24H LABS Laboratory Tests 2 03/22/19 10:11: Nucleated Red Blood Cells % (auto) 0.0, Anion Gap 11, Glomerular Filtration Rate 12.9L, Calcium Level 8.7L 03/22/19 13:04: Lab Scanned Report LAB OTHER 03/22/19 18:22: Urine Color REDH, Urine Appearance TURBIDH, Urine pH 8.0, Urine Specific [place] 1.026, Urine Protein 3+H, Urine Glucose (UA) 1+H, Urine Ketones TRACEH, Urine Blood 2+H, Urine Nitrite NEGATIVE, Urine Bilirubin NEGATIVE, Urine Urobilinogen 0.2, Urine Leukocyte Esterase 2+H, Urine WBC (Auto) TNTCH, Urine RBC (Auto) TNTCH, Urine Hyaline Casts (Auto) 0, Urine Bacteria (Auto) 1+H, Urine Squamous Epithelial Cells 0, Urine Sperm (Auto) 03/23/19 05:29: Nucleated Red Blood Cells % (auto) 0.0, Anion Gap 8, Glomerular Filtration Rate 12.8L, Calcium Level 7.9L, Magnesium Level 2.0 CBC/BMP Laboratory Tests 03/22/19 10:11 03/23/19 05:29 Microbiology Microbiology 03/22/19 Urine Culture, Received Pending 03/22/19 Blood Culture, Received Pending 03/22/19 Blood Culture, Received Pending OLIVA ADAMS OMS-3 Mar 23, 2019 09:22 JAVIER LIZARRAGA PGY-1 Mar 23, 2019 10:01 MEDARDO SOTELO MD Mar 23, 2019 12:39
[2019-03-23] MEDS: SODIUM BICARBONATE 325 MG TAB PO SCH ×3 (11:07→21:22)
[2019-03-23] MEDS: TAMSULOSIN 0.4 MG CAP PO SCH (11:07)
[2019-03-23] MEDS: VITAMIN D 1,000 INTERNATIONAL UNITS TABLET PO SCH (11:07)
[2019-03-23] MEDS: CYANOCOBALAMIN 500 MCG TAB PO SCH (11:08)
[2019-03-23] MEDS: amLODIPine 5 MG TAB PO SCH (11:11)
[2019-03-23] MEDS: ACETAMINOPHEN TAB 650MG DOSE (2X325MG) PO PRN (13:57)
[2019-03-23] MEDS ORDERED: CONRAY-60 60% 50ML VIAL (Q9961) As Ordered ONE (16:05)
[2019-03-23] MEDS ORDERED: fentaNYL 100 MCG/2 ML INJECTION (J3010) As Ordered ONE ×2 (16:12→17:18)
[2019-03-23] MEDS ORDERED: LIDOCAINE 2% INJ 100 MG/5 ML SDV (FOR ANES.) As Ordered ONE (16:12)
[2019-03-23] MEDS ORDERED: MIDAZOLAM INJ 2 MG/2 ML VIAL (J2250) As Ordered ONE (16:12)
[2019-03-23] MEDS ORDERED: PROPOFOL 200 MG/20 ML VIAL As Ordered ONE (16:12)
[2019-03-23] MEDS ORDERED: cefTRIAXone SOD 1 GM VIAL (J0696) As Ordered ONE (16:25)
--- NOTE | 2019-03-23 16:28 | IPNPDOC ---
Subjective Review oF Systems Chief Complaint The patient is a 73-year-old female admitted with a reason for visit of Bladder Mass. Events since Last Encounter No acute events o/n. Objective Physical Examination General Exam: Alert, Cooperative Chest Exam: Clear to auscultation Heart Exam: Positive: Rate Normal Skin Exam: Nl turgor and temperature Neuro Exam: Normal Speech Psych Exam: Mental status NL, Mood NL Vital Signs/I&O Vital Signs Date Time Temp Pulse Resp B/P (MAP) Pulse Ox O2 Delivery O2 Flow Rate FiO2 03/23/19 15:10 99.2 89 18 115/55 98 Room Air I&O- Last 24 Hours up to 6 AM 03/23/19 06:00 Intake Total 1630 ml Output Total 225 ml Balance 1405 ml Laboratory Data Labs 24H Laboratory Tests 2 03/22/19 18:22: Urine Color REDH, Urine Appearance TURBIDH, Urine pH 8.0, Urine Specific [place] 1.026, Urine Protein 3+H, Urine Glucose (UA) 1+H, Urine Ketones TRACEH, Urine Blood 2+H, Urine Nitrite NEGATIVE, Urine Bilirubin NEGATIVE, Urine Urobilinogen 0.2, Urine Leukocyte Esterase 2+H, Urine WBC (Auto) TNTCH, Urine RBC (Auto) TNTCH, Urine Hyaline Casts (Auto) 0, Urine Bacteria (Auto) 1+H, Urine Squamous Epithelial Cells 0, Urine Sperm (Auto) 03/23/19 05:29: Nucleated Red Blood Cells % (auto) 0.0, Anion Gap 8, Glomerular Filtration Rate 12.8L, Calcium Level 7.9L, Magnesium Level 2.0 CBC/BMP Laboratory Tests 03/23/19 05:29 Microbiology Microbiology 03/22/19 Urine Culture - Final, Complete 03/22/19 Blood Culture, Received Pending 03/22/19 Blood Culture - Preliminary, Resulted No growth after 24 hours . All specim... Assessment/Plan Date Seen The patient was seen on 03/23/19. Patient Summary This is a 73 y/o F admitted w/ a possible bladder mass, admitted w/ acute on chronic renal failure. Renal/bladder US from yesterday was notable for a bladder mass and b/l hydro. I recommended that we take her to the OR today for cystoscopy, transurethral resection of bladder tumors, possible bilateral ureteroscopy, possible bilateral ureteral stent placement. After a discussion of the risks and benefits of surgery, informed consent was signed. Plan/VTE VTE Prophylaxis Ordered?: Yes VTE Exclusion Mechanical Proph: N/A:VTE Prophy Ordered Plan - informed consent signed - MANOJ - elvin preop - to OR now ABHISHEK ATKINS MD Mar 23, 2019 16:28
[2019-03-23] MEDS: cefTRIAXone SOD 1 GM in D5W MINI-BAG PLUS 50 ML IV SCH (16:57)
[2019-03-23] MEDS ORDERED: ROCURONIUM BROMIDE 50 MG/5 ML VIAL As Ordered ONE ×2 (17:03→17:20)
[2019-03-23] MEDS ORDERED: dexameTHASONE 4 MG/ML 1ML VIAL (J1100) As Ordered ONE (17:03)
[2019-03-23] MEDS ORDERED: ONDANSETRON 4MG/2ML VIAL (J2405) As Ordered ONE (17:04)
[2019-03-23] MEDS ORDERED: ACETAMINOPHEN 1000MG 100ML IV BTL (OFIRMEV) (J0131 PER 10MG) As Ordered ONE (17:04)
[2019-03-23] MEDS ORDERED: SUGAMMADEX SODIUM 500 MG/5 ML VIAL (BRIDION) As Ordered ONE (17:20)
[2019-03-23] MEDS ORDERED: LR 1,000 ML IV SCH (18:15)
[2019-03-23] MEDS ORDERED: PERCOCET 5MG/325MG TAB PO PRN (18:15)
[2019-03-23] MEDS ORDERED: ONDANSETRON 4MG/2ML VIAL (J2405) IV PRN (18:15)
[2019-03-23] MEDS ORDERED: fentaNYL 100 MCG/2 ML INJECTION (J3010) IV PRN (18:15)
--- NOTE | 2019-03-23 18:47 | RO ---
DATE OF PROCEDURE: 03/23/2019 PREPROCEDURE DIAGNOSIS: Bladder mass, bilateral hydronephrosis. POSTPROCEDURE DIAGNOSIS: Bladder tumor, bilateral hydronephrosis. PROCEDURE: Cystoscopy, transurethral resection of bladder tumor (greater than 5 cm). SURGEON: Darryl Longo MD [employer] FARMERS: None. ANESTHESIA: General OPERATIVE INDICATIONS: This is a 73-year-old female who has been having gross hematuria and recently found to have a possible bladder mass on CAT scan. She was admitted to the hospital yesterday with acute on chronic renal failure and a renal ultrasound showed bilateral hydronephrosis likely related to a large bladder mass. She was brought to the operating room today with plans to resect the bladder mass if possible and to place bilateral ureteral stents if possible. DESCRIPTION OF PROCEDURE: The patient was brought to the operating room where general anesthesia was induced. Prophylactic antibiotics were infused. She was placed in the dorsa lithotomy position and prepped and draped and in the usual sterile fashion. At this point a resectoscope was inserted into the urethral meatus and advanced into the bladder. Of note as soon as we inserted the scope there was a large friable bladder mass growing out almost into the urethra. I tried to look around the bladder but this mass appeared to be occupying almost the entire capacity of the bladder making a formal examination of the bladder very difficult. I was not able to identify either ureteral orifice due to the large bladder mass. It also became very clear that I was not going to be able to completely resect this bladder mass. The decision was therefore made to just take a few swipes of the mass so I can obtain some specimen to send for pathologic analysis. I therefore used the loop to resect about four different areas. Once that was done the areas of resection were cauterized using the loop and then the button. Once satisfied there was good enough hemostasis I withdrew the resectoscope and inserted a 22-Bolivian catheter into the bladder. The balloon was filled with 10 mL of sterile water and this marked the conclusion of the procedure. The patient was taken out of dorsal lithotomy position and awakened from anesthesia and transferred to the recovery room in stable condition. ESTIMATED BLOOD LOSS: About 10 mL. COMPLICATIONS: None. SPECIMEN: Bladder tumor. PLAN: This patient will need bilateral nephrostomy tubes as there is no way to stent her from below. Hopefully with the nephrostomy tube placement her renal function will improve. Regarding the mass in her bladder, this is not resectable and if this is a urothelial carcinoma and if she is healthy enough she will likely benefit from a radical cystectomy. MTDD
--- NOTE | 2019-03-23 19:31 | CR ---
DATE OF CONSULTATION: 03/23/2019 REQUESTING PHYSICIAN: Dr. Rose Caballero REASON FOR CONSULTATION: Acute renal failure superimposed on chronic kidney disease and hydronephrosis. HISTORY OF PRESENT ILLNESS: Ms. Siddiqui is a 73-year-old female who has a known history of chronic kidney disease, morbid obesity, recurrent gross hematuria, and hydronephrosis. She was admitted to [facility] just in early February with acute renal failure via transfer from [facility]. At that time, CAT scan of the abdomen and pelvis and renal ultrasound were consistent with renal and bladder mass and hydronephrosis. She was seen by urology; however, no intervention was performed, as her kidney function improved with just Lizarraga catheter placement and she was scheduled for urology evaluation as an outpatient. Her kidney function worsened again due to which she was sent to the emergency room yesterday and got admitted. Another bladder ultrasound was done, which showed a 14 cm bladder mass. She was also noted to have bilateral hydronephrosis. Nephrology consultation is requested and the patient is seen this morning. She has already been seen by urology and is scheduled for cystoscopy and possible transurethral resection of bladder tumor and ureteral stent placement today. PAST MEDICAL HISTORY/PAST SURGICAL HISTORY: Significant for: 1. History of chronic kidney disease stage III. 2. History of hypertension. 3. Gross hematuria. 4. Urinary tract infection (UTI). 5. Hydronephrosis. 6. Bladder mass. PAST SURGICAL HISTORY: Significant for: 1. Hysterectomy. 2. Appendectomy. 3. Right eye cataract surgery. PERSONAL AND SOCIAL HISTORY: The patient denies any alcohol or drug use. There is no history of smoking. FAMILY HISTORY: Negative for any renal problems or bladder cancer. MEDICATIONS: Her home medications include: - amlodipine 5 mg daily - vitamin D 1000 units daily - vitamin B12 1000 mcg daily - Megace 40 mg two tablets twice a day - sodium bicarbonate 975 mg three times a day - tamsulosin 0.4 mg daily ALLERGIES: She has no known drug allergies. REVIEW OF SYSTEMS: The patient denies any fever or chills. No shortness of breath at this time. EARS/NOSE/THROAT: Unremarkable. CARDIOVASCULAR SYSTEM: Negative for dyspnea or chest pain. RESPIRATORY SYSTEM: Negative for cough or hemoptysis. GASTROINTESTINAL SYSTEM: Negative for nausea, vomiting or diarrhea. GENITOURINARY SYSTEM: Significant for recurrent urinary tract infection (UTI) and gross hematuria. She is noticed to have a bladder mass on ultrasound and bilateral hydronephroses. MUSCULOSKELETAL SYSTEM: Significant for leg edema and stasis. ENDOCRINE SYSTEM: Negative for diabetes or thyroid problems. HEMATOLOGIC SYSTEM: Significant for recurrent anemia with gross hematuria and required transfusions. NEUROLOGICAL SYSTEM: Negative for seizures or strokes. PHYSICAL EXAMINATION: Temperature 98 degrees Fahrenheit, heart rate 94 per minute, respiratory rate 20 per minute. Blood pressure 120/56 mmHg and oxygen saturation 98% on room air. HEAD: Atraumatic. Pupils are equal and reactive to light and sclerae anicteric. NECK: Supple and without jugular venous distention (JVD) or thyroid enlargement. There is no oral thrush or ulcers. HEART: Sounds are regular but tachycardic. LUNGS: Clear to auscultation. ABDOMEN: Soft, obese and nontender. Bowel sounds are normal. EXTREMITIES: Chronic stasis and mild lower extremity edema. There is no cyanosis or clubbing. NEUROLOGIC: She is awake, alert, and oriented times three. LABORATORY DATA: On admission yesterday her WBC count was 18.0, hemoglobin 8.8, and hematocrit 28.1. Platelets 339. Today, WBC count is 16.7, hemoglobin 7.4 and hematocrit 23.0. Sodium is 139, potassium 4.5, CO2 of 23, BUN 61, and creatinine 3.68, glucose 93 and calcium 7.9. Renal ultrasound showed moderate bilateral hydronephrosis and cortical thinning, 12 cm bladder mass. PROBLEMS: 1. Acute renal failure superimposed on chronic kidney disease, most likely this is caused by obstructive uropathy, as she has a large bladder mass with bilateral hydronephrosis. The patient has already been seen by urology and cystoscopy with transurethral resection of bladder tumor and ureteral stent placement is being planned. Her Lizarraga catheter has already been removed this morning. Kidney function will need to be monitored closely. 2. Bladder mass. She has a history of gross hematuria with the possibility of a blood clot in her bladder, however, more likely she has a bladder tumor and likely to require surgery. We will wait for cystoscopy results. 3. Anemia. She has acute blood loss anemia due to recurrent gross hematuria. I would strongly recommend to transfuse her as she is going to have a bladder procedure and likely to have further blood loss. She should have at least 2 units of packed red blood cells today. 4. Hypertension. At present, her blood pressure is somewhat low or very well controlled. She is going to the operating room and will likely require some intravenous fluids. I will suggest to hold off on amlodipine for a systolic blood pressure less than 130 mmHg. 5. Metabolic acidosis. She has been on chronic sodium bicarbonate supplement, which will be continued for now. Thank you for involving me in the care of Ms. Siddiqui. I will follow her along with you.
[2019-03-24 06:00] VITALS: BP 140/66
[2019-03-24] MEDS: ACETAMINOPHEN TAB 650MG DOSE (2X325MG) PO PRN (06:03)
[2019-03-24 07:21] LABS: HEMATOCRIT 24.8 % (36.0-47.0); HEMOGLOBIN 8.1 g/dl (12.0-15.5); MEAN CORPUSCULAR HEMOGLOBIN 31.6 pg (27.0-33.0); MEAN CORPUSCULAR HGB CONC 32.7 g/dl (32.0-36.5); MEAN CORPUSCULAR VOLUME 96.9 fl (80.0-96.0); PLATELET COUNT, AUTOMATED 255 10^3/uL (150-450); RED BLOOD COUNT 2.56 10^6/uL (4.00-5.40)
[2019-03-24 07:33] LABS: INR 1.37; PROTHROMBIN TIME 16.6 SECONDS (11.8-14.0)
[2019-03-24 07:34] LABS: PARTIAL THROMBOPLASTIN TIME 29.8 SECONDS (25.0-38.4)
[2019-03-24 07:41] LABS: CALCIUM LEVEL 7.7 MG/DL (8.8-10.2); CREATININE FOR GFR 3.53 MG/DL (0.55-1.30); GLOMERULAR FILTRATION RATE 13.5 (>39); MAGNESIUM LEVEL 1.9 MG/DL (1.8-2.4); POTASSIUM SERUM 4.7 MEQ/L (3.5-5.1)
[2019-03-24] MEDS: amLODIPine 5 MG TAB PO SCH (08:14)
[2019-03-24] MEDS: SODIUM BICARBONATE 325 MG TAB PO SCH ×2 (08:14→16:36)
[2019-03-24] MEDS: CYANOCOBALAMIN 500 MCG TAB PO SCH (08:14)
[2019-03-24] MEDS: VITAMIN D 1,000 INTERNATIONAL UNITS TABLET PO SCH (08:14)
[2019-03-24] MEDS ORDERED: NS 1,000 ML IV SCH (08:15)
--- NOTE | 2019-03-24 08:31 | IPNPDOC ---
Subjective Review oF Systems Chief Complaint The patient is a 73-year-old female admitted with a reason for visit of Bladder Mass. Events since Last Encounter No acute events o/n. Patient notes an increase in lower abdominal pain since surgery. Denies n/v. Still having a lot of incontinence. Objective Physical Examination General Exam: Alert, Cooperative Chest Exam: Clear to auscultation Heart Exam: Positive: Rate Normal Skin Exam: Nl turgor and temperature Neuro Exam: Normal Speech Psych Exam: Mental status NL, Mood NL Other physical findings catheter w/ small amount of light pink urine in the bag Vital Signs/I&O Vital Signs Date Time Temp Pulse Resp B/P (MAP) Pulse Ox O2 Delivery O2 Flow Rate FiO2 03/24/19 08:14 91 138/78 03/24/19 06:00 99.3 16 96 Room Air 03/23/19 18:10 12 I&O- Last 24 Hours up to 6 AM 03/24/19 06:00 Intake Total 2718 ml Output Total 250 ml Balance 2468 ml Laboratory Data Labs 24H Laboratory Tests 2 03/24/19 06:49: Nucleated Red Blood Cells % (auto) 0.0, Prothrombin Time 16.6H, Prothromb Time International Ratio 1.37, Activated Partial Thromboplast Time 29.8, Anion Gap 8, Glomerular Filtration Rate 13.5L, Calcium Level 7.7L, Magnesium Level 1.9 CBC/BMP Laboratory Tests 03/24/19 06:49 Microbiology Microbiology 03/22/19 Urine Culture - Final, Complete 03/22/19 Blood Culture - Preliminary, Resulted No growth after 24 hours . All specim... 03/22/19 Blood Culture - Preliminary, Resulted No growth after 24 hours . All specim... Assessment/Plan Date Seen The patient was seen on 03/24/19. Patient Summary This is a 73 y/o F admitted w/ a very large bladder tumor causing b/l hydro and resultant acute on chronic renal failure, POD1 s/p TURBT. The bladder tumor is too large to manage endoscopically and therefore she will likely ultimately benefit from a radical cystectomy as this mass is causing b/l ureteral obstruction and chronic anemia due to intermittent hematuria. We will set her up for b/l neph tube placement in IR today. Any additional treatment for the bladder tumor (which could be bladder cancer or recurrent uterine cancer invading the bladder) will depend on pathology, but given the ureteral obstruction and persistent hematuria, a radical cystectomy will likely be necessary at some point. Plan/VTE VTE Prophylaxis Ordered?: Yes VTE Exclusion Mechanical Proph: N/A:VTE Prophy Ordered Plan - order placed for b/l neph tube placement in IR - d/c Lizarraga as it is not going to drain much - NPO until neph tube placement - additional management for her bladder tumor will be arranged on an outpatient basis assuming her hematuria stops ABHISHEK ATKINS MD Mar 24, 2019 08:30
[2019-03-24] MEDS ORDERED: diphenhydrAMINE INJ 50MG/ML VIAL (J1200) As Ordered ONE (09:04)
[2019-03-24] MEDS ORDERED: fentaNYL 100 MCG/2 ML INJECTION (J3010) As Ordered ONE ×2 (09:05→09:47)
[2019-03-24] MEDS ORDERED: LIDOCAINE 1% MDV 20ML VIAL As Ordered ONE (09:05)
[2019-03-24] MEDS ORDERED: MIDAZOLAM INJ 2 MG/2 ML VIAL (J2250) As Ordered ONE ×2 (09:05→09:47)
[2019-03-24] MEDS ORDERED: ISOVUE-300 61% 50ML VIAL (Q9967) As Ordered ONE (09:05)
[2019-03-24] MEDS ORDERED: ceFAZolin 1GM INJ (J0690 PER 500MG) As Ordered ONE (09:07)
--- NOTE | 2019-03-24 09:09 | IPNPDOC ---
Date Seen The patient was seen on 03/24/19. Progress Note SUBJECTIVE: Patient was seen at bedside today. She reports increasing abdominal pain, now spread to her right flank. She rates it at an 8 out of 10. Additionally, she complains of urine leakage around her catheter. She denies any chest pain, shortness of breath, weakness, dizziness, nausea or vomiting. Dr. Longo was present and explained the results of her procedure and the plan to proceed with bilateral nephrostomy tube placement via IR. She understood and agreed to go forward with the current plan. Patient did seem somewhat anxious as expected. She states she does have family planning to visit today. OBJECTIVE PHYSICAL EXAMINATION: VITAL SIGNS: See below GENERAL: Patient is obese, pleasant and cooperative, sitting up in bed, alert and oriented in no acute distress HEENT: Normocephalic, atraumatic. No conjunctival pallor noted. No scleral icterus. PERRLA. EOMI. no nasal discharge. No tracheal deviation. No obvious swollen lymph nodes SKIN: Bilateral lower limb skin changes secondary to chronic edema, dry skin CARDIOVASCULAR: Regular rate and rhythm. Normal S1 and S2. No murmurs, gallops or rubs noted RESPIRATORY: Lungs clear to auscultation bilaterally. ABDOMINAL:. No obvious lesions noted. Normal bowel sounds in all 4 quadrants. Pain to light and deep palpation along the left flank continuing towards the periumbilical area and right flank. No guarding or rigidity noted GENITOURINARY: No CVA tenderness noted. EXTREMITIES:. 2/4 pulses noted throughout. Normal capillary refill. 1+ pitting edema bilaterally lower extremities. Additional nonpitting edema bilaterally lower extremities NEUROLOGICAL: A&O x3. Spontaneous movements of upper extremities. 5/5 muscle strength in upper extremities. 2/5 muscle strength in lower limbs. No focal deficits noted PSYCHOLOGICAL: Mood and affect were appropriate LABORATORY DATA, MICROBIOLOGY: Please see below. IMAGIN03/22/2019 CXR: No acute cardiopulmonary process appreciated 03/22/2019 renal ultrasound: Moderate bilateral hydronephrosis and cortical thinning consistent with chronic renal disease. 12 cm bladder mass ASSESSMENT AND PLAN: This is a 73-year-old white female with past medical history of stage III CKD, known bladder mass and hysterectomy referred to the ER by tank house operator for hematuria and flank pain found to have leukocytosis and evidence of ROWAN on CKD. PROBLEMS: 1. Pyelonephritis vs. B/L Hydronephrosis -Flank pain,oliguria, hematuria and improving leukocytosis of 16.0 -Empiric IV ceftriaxone day 07/27. -Urine and Blood Cx negative -Renal U/S shows b/l hydro + cortical thinning consistent with CKD. -IV fluids -Bilateral nephrostomy tube placement today 2. Gross hematuria -12 cm bladder mass noted on Renal U/S -CT on 02/24/19 showed uterine vs. bladder mass 5mm obstructing UVJ junction, calculi and moderate left hydroureter -UA demonstrates TNTC WBC and RBC, 2+ Leuk Est,3+ protein, Negative Nitrites and bilirubin. -Per Dr. Longo, bladder tumor too large to manage endoscopically. Patient will have bilateral nephrostomy tubes placed today and will follow up outpatient to discuss pathology results from biopsies of the tumor and further treatment. 3. ROWAN on CKD -baseline creatinine around 2.4 -Creatinine at 3.53 today, stable from yesterday -IR planning for b/l Nephrostomy tube placement this afternoon. -Nephrology consulted, appreciate their input and recommendations 4. Multifactorial Anemia -Hbg at 8.1 -Multiple contributing factors including hematuria, history of anemia of chronic disease from 2 daily, and elevated MCV on CBC which suggests a macrocyt ic anemia component -pt received 2 unites of PRBCs yesterday prior to procedure. 5. Abdominal mass with urinary obstruction -Biopsies taken during cystoscopy and sent for pathology. -follow up outpatient to discuss pathology results from biopsies and further treatment. 6. Morbid obesity. Patient's BMI 48.4, complicates care DVT prophylaxis: Teds and SCDs DISPOSITION: Scheduled for b/l nephrostomy tube placement via IR this afternoon. I saw and evaluated the patient. I agree with the findings and plan of care as documented in the above note VS, I&O, 24H, Fishbone Vital Signs/I&O Vital Signs Date Time Temp Pulse Resp B/P (MAP) Pulse Ox O2 Delivery O2 Flow Rate FiO2 03/24/19 08:14 91 138/78 03/24/19 06:00 99.3 16 96 Room Air 03/23/19 18:10 12 I&O- Last 24 Hours up to 6 AM 03/24/19 06:00 Intake Total 2718 ml Output Total 250 ml Balance 2468 ml Laboratory Data 24H LABS Laboratory Tests 2 03/24/19 06:49: Nucleated Red Blood Cells % (auto) 0.0, Prothrombin Time 16.6H, Prothromb Time International Ratio 1.37, Activated Partial Thromboplast Time 29.8, Anion Gap 8, Glomerular Filtration Rate 13.5L, Calcium Level 7.7L, Magnesium Level 1.9 CBC/BMP Laboratory Tests 03/24/19 06:49 Microbiology Microbiology 03/22/19 Urine Culture - Final, Complete 03/22/19 Blood Culture - Preliminary, Resulted No growth after 24 hours . All specim... 03/22/19 Blood Culture - Preliminary, Resulted No growth after 24 hours . All specim... OLIVA ADAMS OMS-3 Mar 24, 2019 09:09 JAVIER LIZARRAGA PGY-1 Mar 24, 2019 09:44 MEDARDO SOTELO MD Mar 24, 2019 15:37
--- NOTE | 2019-03-24 09:14 | IRMSE ---
[facility] IR Moderate Sedation Eval. Date and Time Date: Mar 24, 2019 Time: 09:14 ASA Classification ASA Classification: II-Mild systemic disease Mallampati Score: II NPO: Yes Obstructive Sleep Apnea: No Interval Plan: moderate sedation YAYA GOMEZ MD Mar 24, 2019 09:14
[2019-03-24] MEDS ORDERED: PROMETHAZINE INJ 25 MG/ML VIAL (J2550) As Ordered ONE ×2 (10:15→10:40)
--- NOTE | 2019-03-24 12:19 | POST-OPPD ---
Postoperative Procedure Note Date Of Procedure: Mar 24, 2019 Time Of Procedure: 11:01 PREOPERATIVE DIAGNOSIS: bladder mass. hydro bilat POSTOPERATIVE DIAGNOSIS: bladder mass. hydro bilat FINDINGS: hydro bilat PROCEDURE: bilat PCNU. see full report under imaging tab SURGEON: julian ANESTHESIA: mod sed ESTIMATED BLOOD LOSS: < 5 ml COMPLICATIONS: none POSTOPERATIVE CONDITION: stable YAYA GOMEZ MD Mar 24, 2019 12:19
[2019-03-24] MEDS ORDERED: HYDROMORPHONE HCL 0.5 MG/ 0.5 ML SYRINGE (J1170 PER 1) IV PRN (12:30)
[2019-03-24] MEDS ORDERED: ACETAMINOPHEN TAB 650MG DOSE (2X325MG) PO PRN (12:31)
[2019-03-24 14:00] VITALS: BP 140/68
[2019-03-24] MEDS: PERCOCET 5MG/325MG TAB PO PRN (14:24)
[2019-03-24] MEDS: NS 1,000 ML IV SCH (14:26)
--- NOTE | 2019-03-24 16:02 | REP ---
IR Bilateral Percutaneous nephro ureteral stent catheter placement using fluoroscopy and ultrasound guidance. IR bilateral nephrostogram and ureterogram. IR moderate sedation. Ultrasound of bilateral kidneys. Clinical information: Bladder tumor. Hydronephrosis. Renal failure. Failed retrograde stenting. Physician: Dr Costa. Referring physician: Dr. Darryl Longo Procedure: The patient was advised of the benefits, risks and alternatives of the procedure and informed consent was obtained. The time-out was performed with verification of the patient's name, MRN, site of procedure and type of procedure to be performed. The patient was positioned in the prone position on the angiographic table. The site was prepped and draped in the usual sterile fashion. Moderate sedation was performed by the physician including the presence of an independent trained observer who assisted in monitoring the patient's level of consciousness and physiologic status. Following the administration of fentanyl and Versed , the physician spent 90 minutes of face to face time with the patient. A impregnating tank operator radiograph reveals surgical clips in the right hemiabdomen. Left side: The anticipated puncture site on the left flank was anesthetized with lidocaine. Using ultrasound guidance, an upper pole calyx was accessed with a 21 gauge Chiba needle. A nephrostogram and ureterogram was performed demonstrating hydronephrosis or hydroureter. An 018 wire was then advanced into the collecting system. The needle was then exchanged for a non vascular introducer set. A glide wire in conjunction with a glide cath was used to recanalize the nenana ureter down to the bladder using fluoroscopy guidance. Contrast injection confirms location in the collecting system and bladder. The glidewire was exchanged for an Amplatz wire which was advanced under fluoroscopy guidance through the catheter into the bladder. The sheath and catheter were removed. An 8.5 Bel[place]ian nephro ureteral stent catheter was then advanced over the wire into the bladder. The distal and proximal pigtail were formed and locked in position. A final nephrostogram ureterogram was performed confirming position of the pigtail in the bladder. No extravasation. The catheter was sutured in position with 2-0 Prolene and a sterile dressing was applied. Right side: The anticipated puncture site on the right flank was anesthetized with lidocaine. Using ultrasound guidance, an upper pole calyx was accessed with a 21 gauge Chiba needle. A nephrostogram and ureterogram was performed demonstrating hydronephrosis or hydroureter. An 018 wire was then advanced into the collecting system. The needle was then exchanged for a non vascular introducer set. A glide wire in conjunction with a glide cath was used to recanalize the nenana ureter down to the bladder using fluoroscopy guidance. Contrast injection confirms location in the collecting system and bladder. The glidewire was exchanged for an Amplatz wire which was advanced under fluoroscopy guidance through the catheter into the bladder. The sheath and catheter were removed. An 8.5 Belarusian nephro ureteral stent catheter was then advanced over the wire into the bladder. The distal and proximal pigtail were formed and locked in position. A final nephrostogram ureterogram was performed confirming position of the pigtail in the bladder. No extravasation. The catheter was sutured in position with 2-0 Prolene and a sterile dressing was applied. The patient tolerated the procedure well and was returned to the PRU in stable condition. EBL: < 5 ml. Complications: None. Conclusion: 1. Bilateral nephrostogram and ureterogram demonstrate bilateral hydronephrosis and hydroureter. 2. Successful bilateral nephroureteral stent catheter placement. 3. Patient to return to IR in 2 weeks for internalization or 12 weeks for routine exchange, as per patient and urology. Thank you for this referral. Electronically Signed by Randa Costa MD 03/24/2019 04:01 P
[2019-03-24 18:00] VITALS: BP 132/59
[2019-03-24 22:00] VITALS: BP 131/59
[2019-03-25] MEDS: NS 1,000 ML IV SCH (00:43)
[2019-03-25] MEDS: SODIUM BICARBONATE 325 MG TAB PO SCH ×4 (00:43→20:31)
[2019-03-25] MEDS: PERCOCET 5MG/325MG TAB PO PRN ×3 (00:47→23:32)
[2019-03-25 06:00] VITALS: BP 129/68
[2019-03-25 06:09] LABS: HEMATOCRIT 26.6 % (36.0-47.0); HEMOGLOBIN 8.3 g/dl (12.0-15.5); MEAN CORPUSCULAR HEMOGLOBIN 31.1 pg (27.0-33.0); MEAN CORPUSCULAR HGB CONC 31.2 g/dl (32.0-36.5); MEAN CORPUSCULAR VOLUME 99.6 fl (80.0-96.0); PLATELET COUNT, AUTOMATED 260 10^3/uL (150-450); RED BLOOD COUNT 2.67 10^6/uL (4.00-5.40); WHITE BLOOD COUNT 15.2 10^3/uL (4.0-10.0)
[2019-03-25 06:35] LABS: CALCIUM LEVEL 7.8 MG/DL (8.8-10.2); CREATININE FOR GFR 3.41 MG/DL (0.55-1.30); MAGNESIUM LEVEL 1.9 MG/DL (1.8-2.4); POTASSIUM SERUM 4.4 MEQ/L (3.5-5.1)
[2019-03-25] MEDS: VITAMIN D 1,000 INTERNATIONAL UNITS TABLET PO SCH (10:01)
[2019-03-25] MEDS: CYANOCOBALAMIN 500 MCG TAB PO SCH (10:02)
[2019-03-25] MEDS: amLODIPine 5 MG TAB PO SCH (10:05)
--- NOTE | 2019-03-25 12:23 | IPN ---
DATE: 03/25/2019 The patient is seen this morning in her bed and reports she is doing well on postoperative day one status post bilateral percutaneous nephrostomy placement by interventional radiology. She denies any current symptoms at this time. PHYSICAL EXAMINATION: Vitals: 97.8 degrees Fahrenheit, pulse 90, respiratory rate 17, blood pressure 132/62, saturating 97% on room air. Head is normocephalic, atraumatic. Oral mucosa moist. Neck is supple and without jugular venous distention (JVD) or thyroid enlargement. Heart is regular rate and rhythm. Lungs exhibiting mild crackles and wheezing bilaterally. Abdomen is soft, nontender, obese. Bilateral nephrostomy tubes in place with approximately 400 mL of red clear fluid bilaterally. Extremities: Chronic stasis and lower extremity edema. No cyanosis or clubbing. Neurologic: Alert and oriented times three. LABORATORY DATA: CBC shows white blood cell count of 15.2, hemoglobin 8.3, hematocrit 26.6, platelet 260. Sodium 142, potassium 4.4, chloride 113, CO2 22, BUN 52, creatinine 3.41, glucose 85, calcium 7.8, magnesium 1.9. PROBLEMS: 1. Acute renal failure superimposed on chronic kidney disease. The patient is postoperative day one status post bilateral nephrostomy tube placement, being followed along by urology. A biopsy was performed yesterday and the patient is awaiting results of this. We will continue to monitor her kidney function. At this time, we do not feel continuing with IV fluids is necessary. 2. Bladder mass. Presently being managed by urology. We will continue to await the results of the cystoscopy, however, there was a bladder mass preliminarily found. 3. Anemia. She had acute blood loss anemia secondary to her gross hematuria. She is status post transfusion and her hemoglobin is stable at this time. Will continue to monitor. 4. Hypertension. Her blood pressure remains stable currently. We will make no changes at this time. GALA
--- NOTE | 2019-03-25 12:41 | IPNPDOC ---
Text Note Date of Service The patient was seen on 03/25/19. NOTE Trish is postop day #1 placement of bilateral nephrostomy tubes and nephrouret eral stents for an unresectable bladder tumor. At this point she still has some lower abdominal pain and pressure but no significant gross hematuria. Her pathology from Dr. Longo's biopsies postop day #2 or still pending. Her creatinine is only down slightly to 3.41 from a high of 3.66. Her hemoglobin is 8.3 and it was 7.4. Physical exam: She is comfortable and alert and oriented 3. Her nephrostomy tubes are draining well. He has no CVA tenderness now just some discomfort from the catheters. Her abdomen is soft and there is some diffuse tenderness but no rebound or guarding. Her extremities have very significant chronic edematous changes and vascular changes. She has chronic skin changes also. Impression/Plan -Bladder mass awaiting pathology postop day #[address] Longo -Acute renal failure on top of chronic renal insufficiency now with bilateral nephrostomy tubes and her I's and O's were 910/450 -Continue medical management VS,Fishbone, I+O VS, Fishbone, I+O Laboratory Tests 03/25/19 05:48 Vital Signs Date Time Temp Pulse Resp B/P (MAP) Pulse Ox O2 Delivery O2 Flow Rate FiO2 03/25/19 10:32 18 03/25/19 10:05 92 132/62 03/25/19 06:00 97.8 97 03/25/19 01:17 Room Air 03/24/19 10:47 2 I&O- Last 24 Hours up to 6 AM 03/25/19 06:00 Intake Total 1050 ml Output Total 425 ml Balance 625 ml COLTON MCNEIL MD Mar 25, 2019 11:45
[2019-03-25 14:00] VITALS: BP 133/61
--- NOTE | 2019-03-25 14:31 | IPNPDOC ---
Date Seen The patient was seen on 03/25/19. Progress Note SUBJECTIVE: Patient seen today S/P nephrostomy tube placement. Patient complains of bilateral pain at her nephrostomy tube sites. She expresses improvement in her bilateral flank pain. She denies any fevers, nausea, vomiting, chest pain. She explained that she was in too much pain to work with PT yesterday. OBJECTIVE PHYSICAL EXAMINATION: VITAL SIGNS: See below GENERAL: Patient is obese, pleasant and cooperative, sitting up in bed, alert and oriented in no acute distress HEENT: Normocephalic, atraumatic. No conjunctival pallor noted. No scleral icterus. PERRLA. EOMI. no nasal discharge. No tracheal deviation. No obvious swollen lymph nodes SKIN: Bilateral lower limb skin changes secondary to chronic edema, dry skin CARDIOVASCULAR: Regular rate and rhythm. Normal S1 and S2. No murmurs, gallops or rubs noted RESPIRATORY: Lungs clear to auscultation bilaterally. ABDOMINAL:. No obvious lesions noted. Normal bowel sounds in all 4 quadrants. No guarding or rigidity noted GENITOURINARY: No CVA tenderness noted. Pain at nephrostomy tube sites b/l. EXTREMITIES:. 2/4 pulses noted throughout. Normal capillary refill. 1+ pitting edema bilaterally lower extremities. Additional nonpitting edema bilaterally lower extremities NEUROLOGICAL: A&O x3. Spontaneous movements of upper extremities. 5/5 muscle strength in upper extremities. 2/5 muscle strength in lower limbs. No focal deficits noted PSYCHOLOGICAL: Mood and affect were appropriate LABORATORY DATA, MICROBIOLOGY: Please see below. IMAGIN03/22/2019 CXR: No acute cardiopulmonary process appreciated 03/22/2019 renal ultrasound: Moderate bilateral hydronephrosis and cortical thinning consistent with chronic renal disease. 12 cm bladder mass ASSESSMENT AND PLAN: This is a 73-year-old white female with past medical hist ory of stage III CKD, known bladder mass and hysterectomy referred to the ER by precision devices inspector/tester for hematuria and flank pain found to have leukocytosis and evidence of ROWAN on CKD. PROBLEMS: 1. Pyelonephritis vs. B/L Hydronephrosis -Flank pain,oliguria, hematuria and improving leukocytosis of 15.2 -Empiric IV ceftriaxone day 4/5. -Urine and Blood Cx negative -Renal U/S shows b/l hydro + cortical thinning consistent with CKD. 2. Gross hematuria -12 cm bladder mass noted on Renal U/S -CT on 02/24/19 showed uterine vs. bladder mass 5mm obstructing UVJ junction, calculi and moderate left hydroureter -UA demonstrates TNTC WBC and RBC, 2+ Leuk Est,3+ protein, Negative Nitrites and bilirubin. -Per Dr. Longo, bladder tumor too large to manage endoscopically. Pt post nephrostomy will be managed outpatient until he can plan for radical cystectomy. 3. ROWAN on CKD -baseline creatinine around 2.4 -Creatinine improving at 3.41 from 3.53 -Post nephrostomy tube placement -Nephrology consulted, appreciate their input and recommendations 4. Multifactorial Anemia -Hbg stable at 8.3 -Multiple contributing factors including hematuria, history of anemia of chronic disease from 2 daily, and elevated MCV on CBC which suggests a macrocytic anemia component 5. Abdominal mass with urinary obstruction -Biopsies taken during cystoscopy and sent for pathology. -follow up outpatient to discuss pathology results from biopsies and further treatment. 6. Morbid obesity. Patient's BMI 48.4, complicates care DVT prophylaxis: Teds and SCDs DISPOSITION: Awaiting improvement in renal function and PT clearance I saw and evaluated the patient. I agree with the findings and plan of care as documented in the above note VS, I&O, 24H, Fishbone Vital Signs/I&O Vital Signs Date Time Temp Pulse Resp B/P (MAP) Pulse Ox O2 Delivery O2 Flow Rate FiO2 03/25/19 14:00 98.2 91 133/61 (85) 97 Room Air 03/25/19 10:32 18 03/24/19 10:47 2 I&O- Last 24 Hours up to 6 AM 03/25/19 06:00 Intake Total 1050 ml Output Total 425 ml Balance 625 ml Laboratory Data 24H LABS Laboratory Tests 2 03/25/19 05:48: Nucleated Red Blood Cells % (auto) 0.0, Anion Gap 7L, Glomerular Filtration Rate 14.0L, Calcium Level 7.8L, Magnesium Level 1.9 CBC/BMP Laboratory Tests 03/25/19 05:48 Microbiology Microbiology 03/22/19 Urine Culture - Final, Complete 03/22/19 Blood Culture - Preliminary, Resulted No Growth after 48 hours. All Specime... 03/22/19 Blood Culture - Preliminary, Resulted No Growth after 48 hours. All Specime... OLIVA ADAMS OMS-3 Mar 25, 2019 14:31 JAVIER LIZARRAGA PGY-1 Mar 26, 2019 07:42 MEDARDO SOTELO MD Mar 26, 2019 10:53
[2019-03-25 22:00] VITALS: BP 149/74
[2019-03-26 06:00] VITALS: BP 126/59
[2019-03-26 06:00] LABS: HEMATOCRIT 28.3 % (36.0-47.0); HEMOGLOBIN 8.7 g/dl (12.0-15.5); MEAN CORPUSCULAR HEMOGLOBIN 30.6 pg (27.0-33.0); MEAN CORPUSCULAR HGB CONC 30.7 g/dl (32.0-36.5); MEAN CORPUSCULAR VOLUME 99.6 fl (80.0-96.0); PLATELET COUNT, AUTOMATED 235 10^3/uL (150-450); RED BLOOD COUNT 2.84 10^6/uL (4.00-5.40); WHITE BLOOD COUNT 15.9 10^3/uL (4.0-10.0)
[2019-03-26 06:25] LABS: CALCIUM LEVEL 7.8 MG/DL (8.8-10.2); CREATININE FOR GFR 2.59 MG/DL (0.55-1.30); GLOMERULAR FILTRATION RATE 19.2 (>39); MAGNESIUM LEVEL 1.8 MG/DL (1.8-2.4); POTASSIUM SERUM 4.4 MEQ/L (3.5-5.1)
[2019-03-26] MEDS: amLODIPine 5 MG TAB PO SCH (08:42)
[2019-03-26] MEDS: SODIUM BICARBONATE 325 MG TAB PO SCH ×3 (08:43→20:03)
[2019-03-26] MEDS: CYANOCOBALAMIN 500 MCG TAB PO SCH (08:43)
[2019-03-26] MEDS: VITAMIN D 1,000 INTERNATIONAL UNITS TABLET PO SCH (08:43)
--- NOTE | 2019-03-26 12:48 | IPNPDOC ---
Text Note Date of Service The patient was seen on 03/26/19. 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 Her creatinine is coming down slowly and was 2.59 today from a high of 3.68. Her H&H is still low at 8.7/28. She is making urine. Physical exam: This a well-developed well-nourished female and she is alert and oriented 3. Her nephrostomy tubes are draining pinkish urine but draining well. She has some discomfort around the tubes. Her abdomen is soft with some diffuse tenderness. Her extremities are unchanged. Impression: -High-grade transitional cell carcinoma the bladder in a patient who will require a radical cystectomy and ileal conduit and will need to eventually be sent to [place] for this -Continue acute management now with bilateral nephrostomy tubes VS,Fishbone, I+O VS, Fishbone, I+O Laboratory Tests 03/26/19 05:29 Vital Signs Date Time Temp Pulse Resp B/P (MAP) Pulse Ox O2 Delivery O2 Flow Rate FiO2 03/26/19 08:42 77 122/54 03/26/19 06:00 99.7 17 95 Room Air 03/24/19 10:47 2 I&O- Last 24 Hours up to 6 AM 03/26/19 05:59 Intake Total 2360 ml Output Total 1825 ml Balance 535 ml COLTON MCNEIL MD Mar 26, 2019 12:48
--- NOTE | 2019-03-26 12:55 | IPNPDOC ---
Text Note Date of Service The patient was seen on 03/26/19. NOTE SUBJECTIVE: Patient is postop day 2 from percutaneous bilateral nephrostomy tube placement. She has no complaints at this time other than that she wants to go home and is disappointed that physical therapy will not clear her. OBJECTIVE: PHYSICAL EXAM: Vitals: (see below) General: No acute distress, laying comfortably in bed. HEENT: Normocephalic, atraumatic. EOMI. No scleral icterus. Moist mucous membranes. No pharyngeal erythema or uvular deviation. Neck: No JVD, lymphadenopathy, or thyromegaly. Cardiac: RRR, Normal S1 and S2, No murmurs, gallops, rubs. Pulm: Diminished breath sounds with mild crackles and rhonchi at lung bases. Abd: Obese abdomen, soft, nontender nondistended. Ext: Chronic edema in bilateral lower extremities Neuro: No focal neuro deficits LABORATORY DATA, MICROBIOLOGY: Please see below. ASSESSMENT AND PLAN: 1. Acute renal failure superimposed on chronic kidney disease. Kidney function seems to be returning to baseline in the wake of bilateral nephrostomy tube placement. 2. Urothelial carcinoma Being managed by urology, results of the biopsy showing invasive, high-grade urothelial carcinoma. We did discuss the results of the biopsy with the patient as she had not been informed yet. We discussed that she would likely need to have part or all of her bladder taken out in order to prevent the cancer from spreading elsewhere and that this decision would be formed in consultation with her urology team. 3. Anemia. Hemoglobin remained stable. We'll continue to monitor with CBCs. 4. Hypertension. Her blood pressure remains stable currently. We will make no changes at this time. VS,Fishbone, I+O VS, Fishbone, I+O Laboratory Tests 03/26/19 05:29 Vital Signs Date Time Temp Pulse Resp B/P (MAP) Pulse Ox O2 Delivery O2 Flow Rate FiO2 03/26/19 08:42 77 122/54 03/26/19 06:00 99.7 17 95 Room Air 03/24/19 10:47 2 I&O- Last 24 Hours up to 6 AM 03/26/19 06:00 Intake Total 2360 ml Output Total 2525 ml Balance -165 ml GME ATTESTATION GME ATTESTATION My faculty preceptor for this patient encounter was physically present during the encounter and was fully available. All aspects of the patient interview, examination, medical decision making process, and medical care plan development were reviewed and approved by the faculty preceptor. The faculty preceptor is aware and concurs with the plan as stated in the body of this note and will attest to such by his/her cosignature. ATTENDING NOTE Nephrology Attending Note: Pt was seen and examined at the bedside today AM with the resident. Assessment: ROWAN on CKD sec to bilateral obstructive nephropathy and Urothelial Cancer of Bladder. s/p Bilat PCN ROWAN on CKD, Non Oliguric anemia in CKD Urothelial Cancer Bladder. Bilateral Percutaneous Nephrostomy Plan: Improving renal function. encourage oral hydration. Check iron levels and give IV iron if needed. Further surgical intervention as per Urology. Pathology results discussed with the pt today. YOHANA WATKINS DO Mar 26, 2019 12:55 BOBBI GANDHI MD Mar 26, 2019 18:45
[2019-03-26 14:00] VITALS: BP 142/67
--- NOTE | 2019-03-26 15:21 | IPNPDOC ---
Date Seen The patient was seen on 03/26/19. Progress Note SUBJECTIVE: Patient is a 78 comfortably in her bed. She states she is still having pain in her back with nephrostomy tubes are placed, but this has improved. She also states her left flank pain has improved. She states she had with PT yesterday and was up walking around and then returned to sit up in a chair for a few hours. She denies any additional complaints this morning. OBJECTIVE PHYSICAL EXAMINATION: VITAL SIGNS: See below GENERAL: Patient is obese, pleasant and cooperative, sitting up in bed, alert and oriented in no acute distress HEENT: Normocephalic, atraumatic. No conjunctival pallor noted. No scleral icterus. PERRLA. EOMI. SKIN: Bilateral lower limb skin changes secondary to chronic edema, dry skin CARDIOVASCULAR: Regular rate and rhythm. Normal S1 and S2. No murmurs, gallops or rubs noted RESPIRATORY: Lungs clear to auscultation bilaterally. ABDOMINAL:. No obvious lesions noted. Normal bowel sounds in all 4 quadrants. Mildly tender in left lower quadrant. No guarding or rigidity noted EXTREMITIES:. 2/4 pulses noted throughout. Normal capillary refill. 1+ pitting edema bilaterally lower extremities NEUROLOGICAL: A&O x3. Spontaneous movements of upper extremities. 5/5 muscle strength in upper extremities. 3/5 muscle strength in lower limbs. No focal deficits noted PSYCHOLOGICAL: Mood and affect were appropriate LABORATORY DATA, MICROBIOLOGY: Please see below. IMAGIN03/22/2019 CXR: No acute cardiopulmonary process appreciated 03/22/2019 renal ultrasound: Moderate bilateral hydronephrosis and cortical thinning consistent with chronic renal disease. 12 cm bladder mass ASSESSMENT AND PLAN: This is a 73-year-old white female with past medical history of stage III CKD, known bladder mass referred to the ER by material requirements planning manager for hematuria and flank pain found to have leukocytosis and evidence of ROWAN on CKD, now s/p cystoscopy with biopsies taken of the mass and s/p bilateral nephrostomy tube placement due to obstruction PROBLEMS: 1. Pyelonephritis vs. B/L Hydronephrosis s/p bilateral nephrostomy tube placement -Urine and Blood Cx negative, discontinued antibiotics -Patient had bilateral nephrostomy tube placement on 03/24/19 by interventional radiology -Tubes draining adequately bilaterally 2. Gross hematuria -Patient has known bladder mass which pathology has revealed as urothelial carcinoma. Patient continues to have some bloody urine draining mostly from the left nephrostomy tube. Urology consulted, appreciate their input and recommendations 3. ROWAN on CKD -baseline creatinine around 2.4 -Creatinine improving at 3.41 from 3.53 -Post nephrostomy tube placement -Nephrology consulted, appreciate their input and recommendations 4. Multifactorial Anemia -H/H stable, monitor daily -Multiple contributing factors including hematuria, history of anemia of chronic disease from 2 daily, and elevated MCV on CBC which suggests a macrocytic anemia component 5. Abdominal mass with urinary obstruction -Pathology results showed invasive, high grade urothelial carcinoma with necrosis -follow up outpatient to further discuss pathology results from biopsies and further treatment. 6. Morbid obesity. Patient's BMI 48.4, complicates care DVT prophylaxis: Teds and SCDs DISPOSITION: Pending PT clearance I saw and evaluated the patient. I agree with the findings and plan of care as documented in the above note VS, I&O, 24H, Fishbone Vital Signs/I&O Vital Signs Date Time Temp Pulse Resp B/P (MAP) Pulse Ox O2 Delivery O2 Flow Rate FiO2 03/26/19 08:42 77 122/54 03/26/19 06:00 99.7 17 95 Room Air 03/24/19 10:47 2 I&O- Last 24 Hours up to 6 AM 03/26/19 06:00 Intake Total 2360 ml Output Total 2525 ml Balance -165 ml Laboratory Data 24H LABS Laboratory Tests 2 03/26/19 05:29: Nucleated Red Blood Cells % (auto) 0.0, Anion Gap 6L, Glomerular Filtration Rate 19.2L, Calcium Level 7.8L, Magnesium Level 1.8 CBC/BMP Laboratory Tests 03/26/19 05:29 Microbiology Microbiology 03/22/19 Urine Culture - Final, Complete 03/22/19 Blood Culture - Preliminary, Resulted No Growth after 72 hours. All specime... 03/22/19 Blood Culture - Preliminary, Resulted No Growth after 72 hours. All specime... JAVIER LIZARRAGA PGY-1 Mar 26, 2019 10:29 MEDARDO SOTELO MD Mar 27, 2019 11:04
[2019-03-26] MEDS: PERCOCET 5MG/325MG TAB PO PRN (20:03)
[2019-03-26 22:00] VITALS: BP 127/65
[2019-03-27 06:00] VITALS: BP_SYST 120; BP_SYST 131; BP_DIAS 65; BP_DIAS 71
[2019-03-27 06:01] LABS: HEMATOCRIT 27.4 % (36.0-47.0); HEMOGLOBIN 8.5 g/dl (12.0-15.5); MEAN CORPUSCULAR HEMOGLOBIN 30.6 pg (27.0-33.0); MEAN CORPUSCULAR VOLUME 98.6 fl (80.0-96.0); PLATELET COUNT, AUTOMATED 195 10^3/uL (150-450); RED BLOOD COUNT 2.78 10^6/uL (4.00-5.40); WHITE BLOOD COUNT 15.9 10^3/uL (4.0-10.0)
[2019-03-27 06:27] LABS: CALCIUM LEVEL 8.1 MG/DL (8.8-10.2); CREATININE FOR GFR 2.22 MG/DL (0.55-1.30); MAGNESIUM LEVEL 1.8 MG/DL (1.8-2.4); PERCENT SATURATION 16.8 % (13.2-45.0); POTASSIUM SERUM 4.5 MEQ/L (3.5-5.1)
[2019-03-27] MEDS: amLODIPine 5 MG TAB PO SCH (09:00)
[2019-03-27] MEDS: CYANOCOBALAMIN 500 MCG TAB PO SCH (09:20)
[2019-03-27] MEDS: SODIUM BICARBONATE 325 MG TAB PO SCH (09:20)
[2019-03-27] MEDS: VITAMIN D 1,000 INTERNATIONAL UNITS TABLET PO SCH (09:20)
--- NOTE | 2019-03-27 09:52 | IPNPDOC ---
Text Note Date of Service The patient was seen on 03/27/19. 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 Her creatinine is coming down and was 2.22 today. Her I's and O's were 550 in and 1650 out. Her H&H has been stable. Physical exam: This a well-developed well-nourished female and she is alert and oriented 3. Her nephrostomy tubes are draining pinkish urine but draining well. She has some discomfort around the tubes and now some itching. Her abdomen is soft with some diffuse tenderness. Her extremities are unchanged. Impression: -High-grade transitional cell carcinoma the bladder in a patient who will require a radical cystectomy and ileal conduit and can be discharged from a urologic standpoint with an appointment to follow-up in [place] [facility] for surgical management -Continue bilateral nephrostomy tubes and nephroureteral stents VS,Sandra, I+O VS, Sandra, I+O Laboratory Tests 03/27/19 05:50 Vital Signs Date Time Temp Pulse Resp B/P (MAP) Pulse Ox O2 Delivery O2 Flow Rate FiO2 03/27/19 09:00 91 125/41 03/27/19 06:00 99.2 17 96 Room Air 03/24/19 10:47 2 l I&O- Last 24 Hours up to 6 AM 03/27/19 06:00 Intake Total 540 ml Output Total 2050 ml Balance -1510 ml COLTON MCNEIL MD Mar 27, 2019 09:52
--- NOTE | 2019-03-27 10:43 | IPNPDOC ---
Date Seen The patient was seen on 03/27/19. Progress Note SUBJECTIVE: Patient tells me that she continues to feel some intermittent pain where her nephrostomy tubes have been placed. She tells me that the pain is improved but not resolved. She tells me that she still has difficulty getting out of the hospital bed but otherwise she is able to move better. She denies fevers chills chest pressure shortness of breath nausea or vomiting. OBJECTIVE PHYSICAL EXAMINATION: VITAL SIGNS: See below GENERAL: Patient is obese, pleasant and cooperative, laying down in bed, alert and oriented in no acute distress HEENT: Normocephalic, atraumatic. No conjunctival pallor noted. No scleral icterus. PERRLA. EOMI. SKIN: Bilateral lower limb skin changes secondary to chronic edema, dry skin CARDIOVASCULAR: Regular rate and rhythm. Normal S1 and S2. No murmurs, gallops or rubs noted RESPIRATORY: Lungs clear to auscultation bilaterally. ABDOMINAL:. Obese, No obvious lesions noted. Normal bowel sounds. No guarding or rigidity noted, nephrostomy tubes in place draining clear yellow urine EXTREMITIES:. 2/4 pulses noted throughout. Normal capillary refill. 1+ pitting edema bilaterally lower extremities. Evidence of chronic venous stasis dermatitis and chronic lymphedema related to morbid obesity NEUROLOGICAL: A&O x3. Spontaneous movements of upper extremities. 5/5 muscle strength in upper extremities. 3/5 muscle strength in lower limbs. No focal deficits noted PSYCHOLOGICAL: Mood and affect were appropriate LABORATORY DATA, MICROBIOLOGY: Please see below. IMAGIN03/22/2019 CXR: No acute cardiopulmonary process appreciated 03/22/2019 renal ultrasound: Moderate bilateral hydronephrosis and cortical thinning consistent with chronic renal disease. 12 cm bladder mass ASSESSMENT AND PLAN: This is a 73-year-old white female with past medical histor y of stage III CKD, known bladder mass referred to the ER by senior trainer for hematuria and flank pain found to have leukocytosis and evidence of ROWAN on CKD, now s/p cystoscopy with biopsies taken of the mass and s/p bilateral nephrostomy tube placement due to obstruction PROBLEMS: 1. 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 -Unfortunately was not amenable to stenting -Patient had bilateral nephrostomy tube placement on 03/24/19 by interventional radiology -Tubes draining adequately bilaterally -Patient will need outpatient follow-up with [facility] for complicated radical cystectomy. I do have concerns about the patient's ability to tolerate this procedure given her slow to rebound following percutaneous nephrostomy tube placements. Should she remain in hospital could consider inpatient oncology consultation tomorrow now that we have tissue diagnosis 2. Gross hematuria -Secondary to the above she is on IV iron as per nephrology today should benefit from iron supplementation upon discharge, hemoglobin is stable secondary to her bleeding negative her chronic cancer bladder mass 3. ROWAN on CKD -Secondary to bladder outlet obstruction resolved with nephrostomy tube placement -Nephrology consulted, appreciate their input and recommendations 4. Multifactorial Anemia -H/H stable, monitor daily -Multiple contributing factors including hematuria, history of anemia of chronic disease and elevated MCV on CBC which suggests a macrocytic anemia component -We are supplementing her iron and attempting to control her bleeding hemoglobin is stable she was transfused during the stay 5. Abdominal mass with urinary obstruction -Secondary to the above bladder mass 6. Morbid obesity. Patient's BMI 48.4, complicates care DVT prophylaxis: Teds and SCDs DISPOSITION: Pending PT clearance VS, I&O, 24H, Sandra Vital Signs/I&O Vital Signs Date Time Temp Pulse Resp B/P (MAP) Pulse Ox O2 Delivery O2 Flow Rate FiO2 03/27/19 09:00 91 125/41 03/27/19 06:00 99.2 17 96 Room Air 03/24/19 10:47 2 I&O- Last 24 Hours up to 6 AM 03/27/19 06:00 Intake Total 540 ml Output Total 2050 ml Balance -1510 ml Laboratory Data 24H LABS Laboratory Tests 2 03/27/19 05:50: Nucleated Red Blood Cells % (auto) 0.0, Anion Gap 7L, Glomerular Filtration Rate 23.0L, Calcium Level 8.1L, Magnesium Level 1.8, Iron Level 18L, Total Iron Binding Capacity 107L, Transferrin % Saturation 16.8, Ferritin 626H CBC/BMP Laboratory Tests 03/27/19 05:50 Microbiology Microbiology 03/22/19 Urine Culture - Final, Complete 03/22/19 Blood Culture - Preliminary, Resulted No Growth after 72 hours. All specime... 03/22/19 Blood Culture - Preliminary, Resulted No Growth after 72 hours. All specime... MEDARDO SOTELO MD Mar 27, 2019 10:43
[2019-03-27] MEDS: FERROUS GLUCONATE 324 MG TAB PO SCH (12:04)
[2019-03-27 12:09] VITALS: BP 124/49
[2019-03-27 12:13] VITALS: BP 121/49
[2019-03-27] MEDS ORDERED: IRON SUCROSE 300 MG in NS 250 ML IV ONE (13:00)
[2019-03-27 13:44] VITALS: BP 121/51
[2019-03-27 14:00] VITALS: BP 139/78
--- NOTE | 2019-03-27 15:43 | IPN ---
DATE: 03/27/2019 SUBJECTIVE: The patient was seen and examined at the bedside today morning. She continues to have improving urine output. Renal function continues to improve. Creatinine is down from 2.5 to 2.2 today. However, there is a drop in hemoglobin from 8.7 to 8.5. The patient is still very weak and reports that she could not clear the physical therapy evaluation. She is unable to get herself out of the bed. The patient's pathology report was discussed by myself and by urology yesterday. The patient will need radical cystectomy to be done in [place] once she is discharged from the hospital. OBJECTIVE: Vital signs: Temperature is 99.2 degrees Fahrenheit, blood pressure 125/41, pulse 91, respiratory rate of 17, saturating 96% on room air. Intake and output: Urine output recorded is 1.6 liters yesterday, 1.1 liters so far today since overnight. Weight in the bed scale is not available. PHYSICAL EXAMINATION: General: The patient is awake and alert, oriented times three, laying in bed, morbidly obese, no apparent distress. Head and neck exam: Extraocular muscles intact. Pupils equally round and reactive to light. Mucous membranes are moist. Neck is supple. There is no JVD. Cardiovascular: S1, S2, regular rate. 2+ edema of the bilateral lower extremities which is up to the mid shins. Respiratory: Chest is clear to auscultation bilaterally. Bilateral equal air entry. No rales or rhonchi. Abdomen: Soft, positive bowel sounds. The patient has bilateral percutaneous nephrostomy tubes. Urine in the tube is clearing now. Musculoskeletal: No clubbing or cyanosis. She has chronic bilateral lower extremity venous stasis changes. FIELD MECHANICAL METER TESTER: No focal deficit, power is 5/5 in all extremities. LABORATORY REVIEW: CBC showed WBC of 15.9, hemoglobin 8.5, platelets of 195. BMP showed sodium 142, potassium 4.5, chloride 112, bicarbonate 23, BUN 38, creatinine is 2.2, it was 2.5 yesterday, iron level is 18, TIBC 107, transferrin saturation is 16.8, ferritin is 626. CURRENT INPATIENT MEDICATIONS: The patient's medications were all reviewed by me. I have ordered a dose of Venofer 300 mg IV to be given today. She was also started on ferrous gluconate 324 mg by mouth daily starting tomorrow morning. Sodium bicarbonate has been stopped. ASSESSMENT/PLAN: 1. Acute renal failure superimposed on chronic kidney disease secondary to obstructive uropathy. The patient has bilateral percutaneous nephrostomy. Urine output is improving and renal function continues to improve. Electrolytes are within the acceptable limit. 2. Anemia secondary to blood loss. The patient already got 2 units of PRBC transfusion. Iron levels are still low. I have ordered a dose of Venofer 300 mg IV to be given today. No need of Aranesp administration at this time. Iron levels need to be adequate before SHUN can work. 3. Metabolic acidosis. Acidosis has improved. Bicarbonate level is 23. I have stopped the oral bicarbonate at this time. 4. Carcinoma of the bladder. The patient will be referred to [facility] in [place] for radical cystectomy once she is discharged from the hospital and follows up with nephrology as outpatient. DISPOSITION: Patient's renal function continues to improve. She should followup with nephrology within 1 week after discharge from the hospital once she is cleared from physical therapy. Nephrology service is going to sign off at this moment. Please call nephrology service for any help in the management of this patient during this hospitalization.
[2019-03-27 19:50] VITALS: BP 112/56
[2019-03-27] MEDS: PERCOCET 5MG/325MG TAB PO PRN (23:20)
[2019-03-28 06:00] VITALS: BP 131/59
[2019-03-28 06:16] LABS: HEMATOCRIT 28.5 % (36.0-47.0); HEMOGLOBIN 8.8 g/dl (12.0-15.5); MEAN CORPUSCULAR HGB CONC 30.9 g/dl (32.0-36.5); MEAN CORPUSCULAR VOLUME 100.4 fl (80.0-96.0); PLATELET COUNT, AUTOMATED 268 10^3/uL (150-450); RED BLOOD COUNT 2.84 10^6/uL (4.00-5.40); WHITE BLOOD COUNT 17.5 10^3/uL (4.0-10.0)
[2019-03-28 06:41] LABS: CALCIUM LEVEL 8.4 MG/DL (8.8-10.2); CREATININE FOR GFR 1.91 MG/DL (0.55-1.30); GLOMERULAR FILTRATION RATE 27.3 (>39); MAGNESIUM LEVEL 1.8 MG/DL (1.8-2.4); POTASSIUM SERUM 4.5 MEQ/L (3.5-5.1)
[2019-03-28] MEDS: FERROUS GLUCONATE 324 MG TAB PO SCH (07:58)
[2019-03-28] MEDS: CYANOCOBALAMIN 500 MCG TAB PO SCH (07:59)
[2019-03-28] MEDS: amLODIPine 5 MG TAB PO SCH (07:59)
[2019-03-28] MEDS: VITAMIN D 1,000 INTERNATIONAL UNITS TABLET PO SCH (07:59)
[2019-03-28] MEDS: PERCOCET 5MG/325MG TAB PO PRN (08:03)
--- NOTE | 2019-03-28 09:52 | IPNPDOC ---
Date Seen The patient was seen on 03/28/19. Progress Note SUBJECTIVE: Patient seen for follow-up this morning. She reports improvement in her bilateral pain secondary to nephrostomy tube placement. She has had no difficulty with bowel movements. She denied any chills, nausea, vomiting, shortness of breath. She continues to be averse to physical therapy and doesn't feel that it's helping. She makes mention that they work her too hard. She was counseled on the importance of PT/OT and that she requires their clearance prior to discharge. OBJECTIVE PHYSICAL EXAMINATION: VITAL SIGNS: See below GENERAL: Patient is obese, pleasant and cooperative, sitting upright in a chair at bedside, alert and oriented in no acute distress HEENT: Normocephalic, atraumatic. No conjunctival pallor noted. No scleral icterus. PERRLA. EOMI. SKIN: Bilateral lower limb skin changes secondary to chronic edema, dry skin CARDIOVASCULAR: Regular rate and rhythm. Normal S1 and S2. No murmurs, gallops or rubs noted RESPIRATORY: Lungs clear to auscultation bilaterally. ABDOMINAL: Obese, No obvious lesions noted. Normal bowel sounds. No guarding or rigidity noted, nephrostomy tubes in place draining clear yellow urine EXTREMITIES: 2/4 pulses noted throughout. Normal capillary refill. 1+ pitting edema bilaterally lower extremities. Evidence of chronic venous stasis dermatitis and chronic lymphedema related to morbid obesity NEUROLOGICAL: A&O x3. Spontaneous movements of upper extremities. 5/5 muscle strength in upper extremities. 3/5 muscle strength in lower limbs. No focal deficits noted PSYCHOLOGICAL: Mood and affect were appropriate LABORATORY DATA, MICROBIOLOGY: Please see below. IMAGIN03/22/2019 CXR: No acute cardiopulmonary process appreciated 03/22/2019 renal ultrasound: Moderate bilateral hydronephrosis and cortical thinning consistent with chronic renal disease. 12 cm bladder mass ASSESSMENT AND PLAN: This is a 73-year-old white female with past medical history of stage III CKD, known bladder mass referred to the ER by application support technician for hematuria and flank pain found to have leukocytosis and evidence of ROWAN on CKD, now s/p cystoscopy with biopsies taken of the mass and s/p bilateral nephrostomy tube placement due to obstruction PROBLEMS: 1. 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 -Unfortunately was not amenable to stenting during cystoscopy -Bilateral nephrostomy tube placement on 03/24/19 by interventional radiology -Tubes draining adequately bilaterally -Patient will need outpatient follow-up with [place] [facility] for complicated radical cystectomy. 2. Gross hematuria -Secondary to the above -H/H stable 3. ROWAN on CKD -secondary to bladder outlet obstruction resolved with nephrostomy tube placement -Ongoing improvement in function Creatinine today at 1.91 from 2.22. 4. Multifactorial Anemia -H/H stable, monitor daily -Multiple contributing factors including hematuria, history of anemia of chronic disease and elevated MCV on CBC which suggests a macrocytic anemia component -Iron supplements 5. Abdominal mass with urinary obstruction -Secondary to the above bladder mass 6. Morbid obesity. Patient's BMI 48.4, complicates care DVT prophylaxis: Teds and SCDs DISPOSITION: Rehab Attending addendum: I personally saw and examined the patient. I discussed the care and management of this patient with the resident in detail and agree with the plan above. Additional information below: - Admitted for hematuria & ROWAN, found to have bilateral hydronephrosis due to obstructing bladder mass, s/p b/l nephrostomy tubes, ROWAN improving, plan for follow up w/ Urology in [place] for radical cystectomy. Oncology consulted today; PT recommend ARU eval. VS, I&O, 24H, Fishbone Vital Signs/I&O Vital Signs Date Time Temp Pulse Resp B/P (MAP) Pulse Ox O2 Delivery O2 Flow Rate FiO2 03/28/19 09:08 18 03/28/19 07:59 88 131/59 03/28/19 06:00 98.9 97 Room Air 03/24/19 10:47 2 I&O- Last 24 Hours up to 6 AM 03/28/19 06:00 Intake Total 2365 ml Output Total 975 ml Balance 1390 ml Laboratory Data 24H LABS Laboratory Tests 2 03/28/19 06:01: Nucleated Red Blood Cells % (auto) 0.1H, Anion Gap 6L, Glomerular Filtration Rate 27.3L, Calcium Level 8.4L, Magnesium Level 1.8 CBC/BMP Laboratory Tests 03/28/19 06:01 Microbiology Microbiology 03/22/19 Urine Culture - Final, Complete 03/22/19 Blood Culture - Final, Complete NO GROWTH AFTER 5 DAYS 03/22/19 Blood Culture - Final, Complete NO GROWTH AFTER 5 DAYS OLIVA ADAMS-3 Mar 28, 2019 09:52 JAVIER LIZARRAGA PGY-1 Mar 28, 2019 10:02 HARRY MCNEIL MD Mar 28, 2019 15:18
[2019-03-28 14:00] VITALS: BP 134/70
--- NOTE | 2019-03-28 14:53 | IPNPDOC ---
Text Note Date of Service The patient was seen on 03/28/19. NOTE Trish is postop day #4 placement of bilateral nephrostomy tubes in nephrourete ral stents for an unresectable bladder tumor which the pathology did come back with invasive high-grade transitional cell carcinoma the bladder. I again discussed with her the findings of the pathology and explained that the best treatment option for her is most likely a radical cystectomy and ileoconduit. If is felt that she cannot medically handle this then an oncology consultation should be done. In the meanwhile though we are also can schedule her in [place] for a consultation since we are not doing radical cystectomy is here. Physical exam: This a well-developed well-nourished female and she is alert and oriented 3. Her nephrostomy tubes are draining pinkish urine but draining well. She has some discomfort around the tubes and now some itching. Her abdomen is soft with some diffuse tenderness. Her extremities are unchanged. Impression: -High-grade transitional cell carcinoma the bladder in a patient who will require a radical cystectomy and ileal conduit and can be discharged from a urologic standpoint with an appointment to follow-up in [place] [facility] for surgical management or if it is felt that she can handle this procedure at least get a oncology consultation and opinion -Continue bilateral nephrostomy tubes and nephroureteral stents At this point I am going to sign off from a urologic standpoint and please call with any questions or concerns. VS,Fishbone, I+O VS, Fishbone, I+O Laboratory Tests 03/28/19 06:01 Vital Signs Date Time Temp Pulse Resp B/P (MAP) Pulse Ox O2 Delivery O2 Flow Rate FiO2 03/28/19 09:08 18 03/28/19 07:59 88 131/59 03/28/19 06:00 98.9 97 Room Air 03/24/19 10:47 2 I&O- Last 24 Hours up to 6 AM 03/28/19 06:00 Intake Total 2365 ml Output Total 975 ml Balance 1390 ml COLTON MCNEIL MD Mar 28, 2019 14:53
[2019-03-28 22:00] VITALS: BP 137/72
[2019-03-29 06:00] VITALS: BP_SYST 139; BP_SYST 149; BP_DIAS 69; BP_DIAS 74
[2019-03-29] MEDS: PERCOCET 5MG/325MG TAB PO PRN ×2 (06:10→23:42)
[2019-03-29 06:58] LABS: HEMATOCRIT 29.2 % (36.0-47.0); MEAN CORPUSCULAR HEMOGLOBIN 30.8 pg (27.0-33.0); MEAN CORPUSCULAR HGB CONC 30.8 g/dl (32.0-36.5); PLATELET COUNT, AUTOMATED 315 10^3/uL (150-450); RED BLOOD COUNT 2.92 10^6/uL (4.00-5.40); WHITE BLOOD COUNT 15.8 10^3/uL (4.0-10.0)
[2019-03-29 07:23] LABS: CALCIUM LEVEL 8.6 MG/DL (8.8-10.2); CREATININE FOR GFR 1.86 MG/DL (0.55-1.30); GLOMERULAR FILTRATION RATE 28.2 (>39); MAGNESIUM LEVEL 1.9 MG/DL (1.8-2.4); PHOSPHORUS LEVEL 2.8 MG/DL (2.5-4.9); POTASSIUM SERUM 4.5 MEQ/L (3.5-5.1)
--- NOTE | 2019-03-29 07:58 | CR ---
MEDICAL ONCOLOGY INPATIENT CONSULT DATE OF SERVICE: 03/28/2019 DIAGNOSIS: High-grade urothelial carcinoma of bladder in a 73-year-old woman admitted with hematuria, bilateral hydronephrosis now status post bilateral nephrostomy placement and biopsy positive for high grade invasive urothelial carcinoma without clear evidence of muscle invasion involving a 12 cm bladder mass. REQUESTING PHYSICIAN: Dr. Clark of hospitalist service. HISTORY OF PRESENT ILLNESS: Trish is a 73-year-old woman who lives independently in [place] in [facility] [address]. She has a personal history of what sounds like uterine carcinoma treated with surgery by Dr. Marquez several years ago, underwent MADDY-BSO, no adjuvant chemotherapy or radiation. In the last several months she developed gross hematuria. She was admitted to the hospital in early February with hematuria and hydronephrosis treated conservatively with hydration and discharged with plan for outpatient urology followup. However, recently after seeing her beauty specialist she was called because of panic lab and told to report to the emergency room. On admission 03/22 creatinine was 3.66, GFR 13, BUN 57 with hemoglobin/hematocrit 8.8 and 28 respectively, mild leukocytosis. Workup here has included renal ultrasound showing moderate bilateral hydronephrosis, 12 cm bladder mass. She was apparently not amendable to ureteral stenting and has now undergone bilateral nephrostomy under Dr. Mali Fernandez. 03/24/2019 bladder biopsy by transurethral resection showed invasive high-grade urothelial carcinoma with necrosis, no definite muscularis propria identified. Dr. Fernandez has recommended evaluation for possible surgery in [place]. The patient tells me today she has no interest in standard treatment of muscle invasive bladder cancer would be neoadjuvant chemotherapy followed by surgery; however in a 73-year-old woman with possibly somewhat limited mobility and preference to avoid chemotherapy surgery alone would not be unreasonable if she has a surgical candidate. At the bedside Trish is lying awake readily converses admits to being quite scared but understands she is to be evaluated in [place] for possible surgery. When I brought up the question of oncology treatment and chemotherapy she flatly said she does not want to any chemotherapy. PAST MEDICAL HISTORY: ? uterine carcinoma status post MADDY-BSO, advance kidney disease at least stage 3, chronic anemia. PAST SURGICAL HISTORY: Appendectomy, hysterectomy, cataract surgery, TURB, status post bilateral nephrostomy. 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 FAMILY HISTORY: No cancer. ALLERGIES: No known drug. CURRENT MEDICATIONS: Ferrous gluconate 324 mg daily, Tylenol 650 mg every 6 hours as needed pain, oxycodone/acetaminophen 5/325 every 8 hours as needed pain, amlodipine 5 mg daily, vitamin D 1000 units daily, cyanocobalamin 1000 mcg daily. LIMITED EXAM: Vital signs: Temperature 98, blood pressure 134/70, heart rate 92, respiratory 19, O2 100% on room air. Patient is an overweight well but well-groomed older woman wearing a wig, tidily dressed, reclining in bed. Respiratory: Clear lungs to auscultation bilaterally anteriorly and posteriorly. No wheezes, rubs or rales. Cardiac: S1-S2 distant. Regular rate and rhythm. No murmur. No gallop. Abdomen is soft, nontender, nondistended. No hepatosplenomegaly. No masses. Extremities: Trace pedal edema bilaterally. Large but symmetric bilateral lower extremities. Lymph node exam deferred. Moving the patient to examine her nephrostomy tubes deferred. LABS: WBC 17.5, hemoglobin 8.8, hematocrit 28, platelets 268, sodium 140, potassium 4.5, chloride 112, bicarb 22, BUN 35, creatinine 1.9, GFR 27, calcium 8.4, magnesium 1.8, iron studies from 03/27/2019 with serum iron 18, TIBC 107, ferritin 626, transferrin sat 16% for a mixed iron deficiency and chronic anemia. TRANSFUSION HISTORY: 2 units RBC cells on 03/23/2019. IMPRESSION: Clinical possibly locally advanced high-grade urothelial carcinoma of the bladder with biopsy not yet detecting muscle invasion with a 12 cm tumor causing bilateral hydronephrosis in a 73-year-old woman with a personal history of what sounds like uterine carcinoma. ECOG performance status currently for at baseline 1, minor limited mobility due to arthritis but functions primarily independently from a senior apartment. On 02/24/[address] there is evidence of a large bladder mass without obvious pelvic wall invasion, but I do not have access to the report. Based on current knowledge is difficult to clinically stage this patient but clinically this appears to be a T3 tumor with likely muscularis propria invasion and very likely perivesicular tissue invasion, uncertain [place] status. As such this would make it stage III but possibly this is a stage II bladder cancer with a very large bladder tumor. Primary treatment of a stage II bladder cancer in a cystectomy candidate involved neoadjuvant [place] based chemotherapy for which this patient is a poor candidate based on age, renal function and performance status. For non-cystectomy candidates concurrent chemoradiation is recommended as curative intent treatment, however, this also is probably excessively toxic for this patient to tolerate. Radiation alone can be continued considered or TURBT and intravesical BCG for stage II disease. Stage III disease typically involves neoadjuvant chemotherapy but again in a non-chemotherapy or non- cystectomy setting palliative TURBT chemotherapy or best aperitive care could be considered and in the pure palliative setting with PD-L1 positive for MMR mutation present immunotherapy could be considered. RECOMMENDATIONS: 1. Pelvic MRI would be optimal for this patient's preoperative evaluation. 2. I agree with evaluation by a surgeon potentially able to perform cystectomy with ileal conduit. This may be the patient's best option for advanced, resectable tumor avoiding bulky local disease progression. 3. Obtain PD-L1 and MMR status on tissue. 4. The patient to me preferred as able back to medical oncology once she has been evaluated for potential surgery. 5. CT of the chest without contrast as part of staging to rule out distant metastases. Thank you for this consult. TIME STATEMENT: 40 minutes spent involved in a [id number] conversation with the patient, examination, reviewing records and discussing the case with referring physician.
[2019-03-29] MEDS: amLODIPine 5 MG TAB PO SCH (08:00)
[2019-03-29] MEDS: CYANOCOBALAMIN 500 MCG TAB PO SCH (08:00)
[2019-03-29] MEDS: FERROUS GLUCONATE 324 MG TAB PO SCH (08:00)
[2019-03-29] MEDS: VITAMIN D 1,000 INTERNATIONAL UNITS TABLET PO SCH (08:00)
--- NOTE | 2019-03-29 10:26 | IPNPDOC ---
Date Seen The patient was seen on 03/29/19. Progress Note SUBJECTIVE: Patient seen and examined today sitting upright chair in her room. She states she is still having some irritation at the nephrostomy tube site, but her pain has improved. She continues to express frustration about working with physical therapy but does understand that she may require further rehabilitation prior to going home. She states she has noticed some increased swelling in both legs and feet since she has been working with physical therapy and sitting up in a chair more often than laying in bed. Denies any pain in her legs or calf tenderness. She denies any chills, nausea, vomiting, shortness of breath. OBJECTIVE PHYSICAL EXAMINATION: VITAL SIGNS: See below GENERAL: Patient is obese, pleasant and cooperative, sitting upright in a chair at bedside, alert and oriented in no acute distress HEENT: Normocephalic, atraumatic. No conjunctival pallor noted. No scleral ic terus. PERRLA. EOMI. SKIN: Bilateral lower limb skin changes secondary to chronic edema, dry skin CARDIOVASCULAR: Regular rate and rhythm. Normal S1 and S2. No murmurs, gallops or rubs noted RESPIRATORY: Lungs clear to auscultation bilaterally. ABDOMINAL: Obese, No obvious lesions noted. Normal bowel sounds. No guarding or rigidity noted, nephrostomy tubes in place draining clear yellow urine EXTREMITIES: 2/4 pulses noted throughout. Normal capillary refill. 2+ pitting edema bilaterally lower extremities. Evidence of chronic venous stasis dermatitis and chronic lymphedema related to morbid obesity NEUROLOGICAL: A&O x3. Spontaneous movements of upper extremities. 5/5 muscle strength in upper extremities. 3/5 muscle strength in lower limbs. No focal deficits noted PSYCHOLOGICAL: Mood and affect were appropriate LABORATORY DATA, MICROBIOLOGY: Please see below. IMAGIN03/22/2019 CXR: No acute cardiopulmonary process appreciated 03/22/2019 renal ultrasound: Moderate bilateral hydronephrosis and cortical thinning consistent with chronic renal disease. 12 cm bladder mass ASSESSMENT AND PLAN: This is a 73-year-old white female with past medical history of stage III CKD, known bladder mass referred to the ER by concessions manager for hematuria and flank pain found to have leukocytosis and evidence of ROWAN on CKD, now s/p cystoscopy with biopsies taken of the mass and s/p bilateral neph rostomy tube placement due to obstruction PROBLEMS: 1. 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 -Urology consulted, unfortunately was not amenable to stenting during cystoscopy -Bilateral nephrostomy tube placement on 03/24/19 by interventional radiology -Tubes draining adequately bilaterally -Patient will need outpatient follow-up with [facility] to discuss complicated radical cystectomy. -Oncology consulted while inpatient for further recommendations, appreciate their input 2. Gross hematuria -Secondary to the above -H/H stable 3. Increased lower extremity edema. One time dose of lasix 60mg IV today - Will continue to monitor I/Os PT for evaluation and treatment of lymphedema 4. ROWAN on CKD -secondary to bladder outlet obstruction resolved with nephrostomy tube pl acement -Cr continues to trend down, monitor daily 5. Multifactorial Anemia -H/H stable, monitor daily -Multiple contributing factors including hematuria, history of anemia of chronic disease, iron studies reveal iron deficiency -Oral iron supplement 6. Abdominal mass with urinary obstruction -Secondary to the above bladder mass 7. Morbid obesity. Patient's BMI 48.4, complicates care 8. Deconditioning - PT and OT - ARU screen for further rehab per PT recommendations DVT prophylaxis: Teds and SCDs DISPOSITION: pending placement for further rehab per PT recommendations VS, I&O, 24H, Fishbone Vital Signs/I&O Vital Signs Date Time Temp Pulse Resp B/P (MAP) Pulse Ox O2 Delivery O2 Flow Rate FiO2 03/29/19 08:00 94 139/74 03/29/19 06:40 20 95 Room Air 03/29/19 06:00 98.7 03/24/19 10:47 2 I&O- Last 24 Hours up to 6 AM 03/29/19 06:00 Intake Total 940 ml Output Total 1655 ml Balance -715 ml Laboratory Data 24H LABS Laboratory Tests 2 03/29/19 05:42: Nucleated Red Blood Cells % (auto) 0.0, Anion Gap 9, Glomerular Filtration Rate 28.2L, Calcium Level 8.6L, Phosphorus Level 2.8, Magnesium Level 1.9 CBC/BMP Laboratory Tests 03/29/19 05:42 Microbiology Microbiology 03/22/19 Urine Culture - Final, Complete 03/22/19 Blood Culture - Final, Complete NO GROWTH AFTER 5 DAYS 03/22/19 Blood Culture - Final, Complete NO GROWTH AFTER 5 DAYS GME ATTESTATION GME ATTESTATION My faculty preceptor for this patient encounter was physically present during the encounter and was fully available. All aspects of the patient interview, examination, medical decision making process, and medical care plan development were reviewed and approved by the faculty preceptor. The faculty preceptor is aware and concurs with the plan as stated in the body of this note and will attest to such by his/her cosignature. ATTENDING NOTE I, Antonia Greenfield, have independently examined this patient and performed my own physical exam, as well as reviewed the documentation and edited where necessary. I have discussed in detail with the resident / student the findings and plan of treatment as documented by the resident / student and edited their note. I agree with their findings and treatment plan and have edited their documentation. I will continue to follow the patient during this hospital stay. JAVIER LIZARRAGA PGY-1 Mar 29, 2019 10:26 ANTONIA GREENFIELD MD Mar 29, 2019 15:20
[2019-03-29] MEDS ORDERED: FUROSEMIDE 100 MG/10 ML VIAL (J1940) IV ONE (11:45)
[2019-03-29 14:00] VITALS: BP 134/71
[2019-03-29 22:00] VITALS: BP 123/44
[2019-03-30 06:00] VITALS: BP 125/56
[2019-03-30] MEDS ORDERED: FUROSEMIDE 100 MG/10 ML VIAL (J1940) IV ONE (08:15)
[2019-03-30 08:26] LABS: HEMATOCRIT 26.6 % (36.0-47.0); HEMOGLOBIN 8.3 g/dl (12.0-15.5); MEAN CORPUSCULAR HEMOGLOBIN 30.7 pg (27.0-33.0); MEAN CORPUSCULAR HGB CONC 31.2 g/dl (32.0-36.5); MEAN CORPUSCULAR VOLUME 98.5 fl (80.0-96.0); PLATELET COUNT, AUTOMATED 308 10^3/uL (150-450); WHITE BLOOD COUNT 14.2 10^3/uL (4.0-10.0)
[2019-03-30 08:45] LABS: CALCIUM LEVEL 8.3 MG/DL (8.8-10.2); CREATININE FOR GFR 1.77 MG/DL (0.55-1.30); GLOMERULAR FILTRATION RATE 29.9 (>39); MAGNESIUM LEVEL 1.7 MG/DL (1.8-2.4); POTASSIUM SERUM 4.1 MEQ/L (3.5-5.1)
[2019-03-30 08:57] LABS: ATYPICAL LYMPH 1 % (0-5); EOSINOPHILS 1 % (0-3); LYMPHOCYTES 12 % (16-44); METAMYELOCYTES 1 % (0-0); MONOCYTES 2 % (0-5); NEUTROPHILS 80 % (28-66); PLATELET ESTIMATE NORMAL (NORMAL)
[2019-03-30 08:58] LABS: ANISOCYTOSIS 1+; HYPOCHROMASIA 1+
[2019-03-30] MEDS: CYANOCOBALAMIN 500 MCG TAB PO SCH (09:59)
[2019-03-30] MEDS: amLODIPine 5 MG TAB PO SCH (09:59)
[2019-03-30] MEDS: VITAMIN D 1,000 INTERNATIONAL UNITS TABLET PO SCH (09:59)
[2019-03-30] MEDS: FERROUS GLUCONATE 324 MG TAB PO SCH (09:59)
--- NOTE | 2019-03-30 10:44 | IPNPDOC ---
Date Seen The patient was seen on 03/30/19. Progress Note SUBJECTIVE: Patient seen and examined today, lying comfortably in bed eating breakfast. She appears in good spirits today. She states that her leg swelling did improve yesterday after the one-time dose of Lasix. She also states she saw the physical therapist for lymphedema treatment and they wrapped her feet. Denies any pain in her feet or legs or any calf tenderness. She denies any chills, nausea, vomiting, shortness of breath. OBJECTIVE PHYSICAL EXAMINATION: VITAL SIGNS: See below GENERAL: Patient is obese, pleasant and cooperative, sitting upright in a chair at bedside, alert and oriented in no acute distress HEENT: Normocephalic, atraumatic. No conjunctival pallor noted. No scleral icterus. PERRLA. EOMI. SKIN: Bilateral lower limb skin changes secondary to chronic edema, dry skin CARDIOVASCULAR: Regular rate and rhythm. Normal S1 and S2. No murmurs, gallops or rubs noted RESPIRATORY: Lungs clear to auscultation bilaterally. ABDOMINAL: Obese, No obvious lesions noted. Normal bowel sounds. No guarding or rigidity noted, nephrostomy tubes in place draining clear yellow urine EXTREMITIES: 2/4 pulses noted throughout. Normal capillary refill. 1+ pitting edema bilaterally lower extremities. Evidence of chronic venous stasis dermatitis and chronic lymphedema related to morbid obesity, feet wrapped bilaterally with Oumar bandage. NEUROLOGICAL: A&O x3. Spontaneous movements of upper extremities. 5/5 muscle strength in upper extremities. 3/5 muscle strength in lower limbs. No focal deficits noted PSYCHOLOGICAL: Mood and affect were appropriate LABORATORY DATA, MICROBIOLOGY: Please see below. IMAGIN03/22/2019 CXR: No acute cardiopulmonary process appreciated 03/22/2019 renal ultrasound: Moderate bilateral hydronephrosis and cortical thinning consistent with chronic renal disease. 12 cm bladder mass ASSESSMENT AND PLAN: This is a 73-year-old white female with past medical history of stage III CKD, known bladder mass referred to the ER by upper shaper for hematuria and flank pain found to have leukocytosis and evidence of ROWAN on CKD, now s/p cystoscopy with biopsies taken of the mass and s/p bilateral nephrostomy tube placement due to obstruction PROBLEMS: 1. 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 -Urology consulted, unfortunately was not amenable to stenting during cystoscopy -Bilateral nephrostomy tube placement on 03/24/19 by interventional radiology -Tubes draining adequately bilaterally -Patient will need outpatient follow-up with [facility] to discuss complicated radical cystectomy. -Oncology consulted while inpatient for further recommendations, appreciate their input 2. Gross hematuria -Secondary to the above -H/H stable 3. Increased lower extremity edema. Good effect with 1 time dose of Lasix yesterday, given another dose of IV Lasix 60 mg today. - Will continue to monitor I/Os PT for evaluation and treatment of lymphedema, feet wrapped today for lymphedema treatment 4. ROWAN on CKD -secondary to bladder outlet obstruction resolved with nephrostomy tube placement -Cr continues to trend down, monitor daily 5. Multifactorial Anemia -H/H stable, monitor daily -Multiple contributing factors including hematuria, history of anemia of chronic disease, iron studies reveal iron deficiency -Oral iron supplement 6. Abdominal mass with urinary obstruction -Secondary to the above bladder mass 7. Morbid obesity. Patient's BMI 48.4, complicates care 8. Deconditioning - PT and OT - ARU screen for further rehab per PT recommendations DVT prophylaxis: Teds and SCDs DISPOSITION: pending placement for further rehab per PT recommendations VS, I&O, 24H, [facility] Vital Signs/I&O Vital Signs Date Time Temp Pulse Resp B/P (MAP) Pulse Ox O2 Delivery O2 Flow Rate FiO2 03/30/19 09:59 92 125/56 03/30/19 06:00 98.6 18 95 Room Air 03/24/19 10:47 2 I&O- Last 24 Hours up to 6 AM 03/30/19 06:00 Intake Total 1350 ml Output Total 1775 ml Balance -425 ml Laboratory Data 24H LABS Laboratory Tests 2 03/30/19 08:13: Immature Granulocyte % (Auto) , Nucleated Red Blood Cells % (auto) 0.0, Neutrophils 80H, Band Neutrophils 3, Lymphocytes (Manual) 12L, Monocytes (Manual) 2, Eosinophils (Manual) 1, Metamyelocytes 1H, Atypical Lymphocytes 1, Hypochromasia 1+, Anisocytosis 1+, Platelet Estimate NORMAL, Anion Gap 6L, Glomerular Filtration Rate 29.9L, Calcium Level 8.3L, Magnesium Level 1.7L CBC/BMP Laboratory Tests 03/30/19 08:13 Microbiology Microbiology 03/22/19 Urine Culture - Final, Complete 03/22/19 Blood Culture - Final, Complete NO GROWTH AFTER 5 DAYS 03/22/19 Blood Culture - Final, Complete NO GROWTH AFTER 5 DAYS GME ATTESTATION GME ATTESTATION My faculty preceptor for this patient encounter was physically present during the encounter and was fully available. All aspects of the patient interview, examination, medical decision making process, and medical care plan development were reviewed and approved by the faculty preceptor. The faculty preceptor is aware and concurs with the plan as stated in the body of this note and will attest to such by his/her cosignature. ATTENDING NOTE I, Antonia Greenfield, have independently examined this patient and performed my own physical exam, as well as reviewed the documentation and edited where necessary. I have discussed in detail with the resident / student the findings and plan of treatment as documented by the resident / student and edited their note. I agree with their findings and treatment plan and have edited their documentation. I will continue to follow the patient during this hospital stay. JAVIER LIZARRAGA PGY-1 Mar 30, 2019 10:44 ANTONIA GREENFIELD MD Mar 30, 2019 13:24
[2019-03-30] MEDS ORDERED: MAG SULF 1GM/100ML (MAG RUN) 1 GM in IV 1 EA IV ONE (10:45)
[2019-03-30 14:00] VITALS: BP 136/63
[2019-03-30] MEDS: MOM 30ML SUSPENSION UDC PO PRN (15:11)
[2019-03-30] MEDS: SENOKOT S TAB PO PRN (15:11)
[2019-03-30] MEDS: PERCOCET 5MG/325MG TAB PO PRN (15:11)
[2019-03-30 20:00] VITALS: BP 117/51
[2019-03-31 06:00] VITALS: BP 116/49
[2019-03-31 06:20] LABS: HEMATOCRIT 24.2 % (36.0-47.0); HEMOGLOBIN 7.6 g/dl (12.0-15.5); MEAN CORPUSCULAR HEMOGLOBIN 30.6 pg (27.0-33.0); MEAN CORPUSCULAR HGB CONC 31.4 g/dl (32.0-36.5); MEAN CORPUSCULAR VOLUME 97.6 fl (80.0-96.0); PLATELET COUNT, AUTOMATED 354 10^3/uL (150-450); RED BLOOD COUNT 2.48 10^6/uL (4.00-5.40)
[2019-03-31 06:39] LABS: EOSINOPHILS 1 % (0-3); LYMPHOCYTES 24 % (16-44); MONOCYTES 5 % (0-5); NEUTROPHILS 70 % (28-66); PLATELET ESTIMATE NORMAL (NORMAL)
[2019-03-31 06:49] LABS: CALCIUM LEVEL 8.1 MG/DL (8.8-10.2); CREATININE FOR GFR 1.64 MG/DL (0.55-1.30); GLOMERULAR FILTRATION RATE 32.6 (>39); MAGNESIUM LEVEL 2.2 MG/DL (1.8-2.4); POTASSIUM SERUM 4.3 MEQ/L (3.5-5.1)
[2019-03-31] MEDS ORDERED: FUROSEMIDE 100 MG/10 ML VIAL (J1940) IV ONE (07:30)
[2019-03-31] MEDS: VITAMIN D 1,000 INTERNATIONAL UNITS TABLET PO SCH (08:40)
[2019-03-31] MEDS: CYANOCOBALAMIN 500 MCG TAB PO SCH (08:40)
[2019-03-31] MEDS: FERROUS GLUCONATE 324 MG TAB PO SCH (08:40)
[2019-03-31] MEDS: amLODIPine 5 MG TAB PO SCH (08:40)
[2019-03-31] MEDS: PERCOCET 5MG/325MG TAB PO PRN (08:52)
--- NOTE | 2019-03-31 12:35 | IPNPDOC ---
Date Seen The patient was seen on 03/31/19. Progress Note SUBJECTIVE: Patient seen and examined today, sitting up comfortably in a chair. She states she is feeling well today and continues to feel improvement in her leg swelling with the lasix and lymphadema treatments. She denies any fevers, chills, nausea/vomitting, diarrhea, leg pain, or shortness of breath. She states she feels her strength is improving with PT. OBJECTIVE PHYSICAL EXAMINATION: VITAL SIGNS: See below GENERAL: Patient is obese, pleasant and cooperative, sitting upright in a chair at bedside, alert and oriented in no acute distress HEENT: Normocephalic, atraumatic. No conjunctival pallor noted. No scleral icterus. PERRLA. EOMI. SKIN: Bilateral lower limb skin changes secondary to chronic edema, dry skin CARDIOVASCULAR: Regular rate and rhythm. Normal S1 and S2. No murmurs, gallops or rubs noted RESPIRATORY: Lungs clear to auscultation bilaterally. ABDOMINAL: Obese, No obvious lesions noted. Normal bowel sounds. No guarding or rigidity noted, nephrostomy tubes in place draining clear yellow urine EXTREMITIES: 2/4 pulses noted throughout. Normal capillary refill. 1+ pitting edema bilaterally lower extremities. Evidence of chronic venous stasis dermatitis and chronic lymphedema related to morbid obesity, feet wrapped bilaterally with Oumar bandage. NEUROLOGICAL: A&O x3. Spontaneous movements of upper extremities. 5/5 muscle strength in upper extremities. 4/5 muscle strength in lower limbs. No focal deficits noted PSYCHOLOGICAL: Mood and affect were appropriate LABORATORY DATA, MICROBIOLOGY: Please see below. IMAGIN03/22/2019 CXR: No acute cardiopulmonary process appreciated 03/22/2019 renal ultrasound: Moderate bilateral hydronephrosis and cortical th inning consistent with chronic renal disease. 12 cm bladder mass ASSESSMENT AND PLAN: This is a 73-year-old white female with past medical history of stage III CKD, known bladder mass referred to the ER by manager ship for hematuria and flank pain found to have leukocytosis and evidence of ROWAN on C KD, now s/p cystoscopy with biopsies taken of the mass and s/p bilateral nephrostomy tube placement due to obstruction PROBLEMS: 1. 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 -Urology consulted, unfortunately was not amenable to stenting during cystoscopy -Bilateral nephrostomy tube placement on 03/24/19 by interventional radiology -Tubes draining adequately bilaterally -Patient will need outpatient follow-up with [place] [facility] to discuss complicated radical cystectomy. -Oncology consulted while inpatient for further recommendations, appreciate their input 2. Gross hematuria -Secondary to the above, monitor H/H daily 3. Increased lower extremity edema. Good effect with 1 time dose of Lasix yesterday, given another dose of IV Lasix 60 mg today. - Will continue to monitor I/Os PT for evaluation and treatment of lymphedema, feet wrapped today for lymphedema treatment 4. ROWAN on CKD -secondary to bladder outlet obstruction resolved with nephrostomy tube placement -Cr continues to trend down, monitor daily 5. Multifactorial Anemia -H/H dropped this morning to 7.6/24.2, will recheck in 6 hours -Multiple contributing factors including hematuria, history of anemia of chronic disease, iron studies reveal iron deficiency -Oral iron supplement 6. Abdominal mass with urinary obstruction -Secondary to the above bladder mass 7. Morbid obesity. Patient's BMI 48.4, complicates care 8. Deconditioning - PT and OT - ARU screen for further rehab per PT recommendations DVT prophylaxis: TEDs and SCDs DISPOSITION: pending placement for further rehab per PT recommendations VS, I&O, 24H, [facility] Vital Signs/I&O Vital Signs Date Time Temp Pulse Resp B/P (MAP) Pulse Ox O2 Delivery O2 Flow Rate FiO2 03/31/19 09:22 18 03/31/19 08:40 101 161/71 03/31/19 06:00 99.0 96 Room Air I&O- Last 24 Hours up to 6 AM 03/31/19 06:00 Intake Total 1701 ml Output Total 1300 ml Balance 401 ml Laboratory Data 24H LABS Laboratory Tests 2 03/31/19 05:34: Immature Granulocyte % (Auto) , Nucleated Red Blood Cells % (auto) 0.0, Neutrophils 70H, Lymphocytes (Manual) 24, Monocytes (Manual) 5, Eosinophils (Manual) 1, Red Blood Cell Morphology NORMAL, Platelet Estimate NORMAL, Anion Gap 5L, Glomerular Filtration Rate 32.6L, Calcium Level 8.1L, Magnesium Level 2.2 CBC/BMP Laboratory Tests 03/31/19 05:34 Microbiology Microbiology 03/22/19 Urine Culture - Final, Complete 03/22/19 Blood Culture - Final, Complete NO GROWTH AFTER 5 DAYS 10/29/19 Blood Culture - Final, Complete NO GROWTH AFTER 5 DAYS GME ATTESTATION GME ATTESTATION My faculty preceptor for this patient encounter was physically present during the encounter and was fully available. All aspects of the patient interview, examination, medical decision making process, and medical care plan development were reviewed and approved by the faculty preceptor. The faculty preceptor is aware and concurs with the plan as stated in the body of this note and will attest to such by his/her cosignature. ATTENDING NOTE I, Antonia Greenfield, have independently examined this patient and performed my own physical exam, as well as reviewed the documentation and edited where necessary. I have discussed in detail with the resident / student the findings and plan of treatment as documented by the resident / student and edited their note. I agree with their findings and treatment plan and have edited their documentation. I will continue to follow the patient during this hospital stay. JAVIER LIZARRAGA PGY-1 Mar 31, 2019 12:35 ANTONIA GREENFIELD MD Mar 31, 2019 13:24
[2019-03-31 12:53] LABS: HEMATOCRIT 28.8 % (36.0-47.0); HEMOGLOBIN 8.8 g/dl (12.0-15.5)
[2019-03-31 14:00] VITALS: BP 130/67
[2019-03-31 22:00] VITALS: BP 129/70
[2019-04-01 06:00] VITALS: BP 131/72
[2019-04-01 06:15] LABS: HEMOGLOBIN 7.7 g/dl (12.0-15.5); MEAN CORPUSCULAR HEMOGLOBIN 30.8 pg (27.0-33.0); MEAN CORPUSCULAR HGB CONC 30.8 g/dl (32.0-36.5); PLATELET COUNT, AUTOMATED 363 10^3/uL (150-450)
[2019-04-01 06:23] LABS: BASOPHILS 1 % (0-1); LYMPHOCYTES 10 % (16-44); MONOCYTES 7 % (0-5); MYELOCYTES 1 % (0-0); NEUTROPHILS 80 % (28-66)
[2019-04-01 06:24] LABS: ANISOCYTOSIS 1+; HYPOCHROMASIA 1+; POLYCHROMASIA 1+
[2019-04-01 06:25] LABS: PLATELET ESTIMATE NORMAL (NORMAL)
[2019-04-01 06:39] LABS: CALCIUM LEVEL 8.2 MG/DL (8.8-10.2); CREATININE FOR GFR 1.63 MG/DL (0.55-1.30); GLOMERULAR FILTRATION RATE 32.8 (>39); POTASSIUM SERUM 4.3 MEQ/L (3.5-5.1)
[2019-04-01] MEDS: VITAMIN D 1,000 INTERNATIONAL UNITS TABLET PO SCH (09:18)
[2019-04-01] MEDS: MOM 30ML SUSPENSION UDC PO PRN (09:18)
[2019-04-01] MEDS: SENOKOT S TAB PO PRN ×2 (09:18→23:30)
[2019-04-01] MEDS: FERROUS GLUCONATE 324 MG TAB PO SCH (09:18)
[2019-04-01] MEDS: MIRALAX *UNIT DOSE* 17GM PACKET PO PRN (09:18)
[2019-04-01] MEDS: CYANOCOBALAMIN 500 MCG TAB PO SCH (09:18)
[2019-04-01] MEDS: amLODIPine 5 MG TAB PO SCH (09:27)
--- NOTE | 2019-04-01 09:57 | IPNPDOC ---
Date Seen The patient was seen on 04/01/19. Progress Note SUBJECTIVE: Patient seen and examined today, lying comfortably in bed. She denies any new complaints today. She states she has been working with PT and does understand that the next step will be rehab. OBJECTIVE PHYSICAL EXAMINATION: VITAL SIGNS: See below GENERAL: Patient is obese, pleasant and cooperative, sitting upright in a chair at bedside, alert and oriented in no acute distress HEENT: Normocephalic, atraumatic. No conjunctival pallor noted. No scleral icterus. PERRLA. EOMI. SKIN: Bilateral lower limb skin changes secondary to chronic edema, dry skin CARDIOVASCULAR: Regular rate and rhythm. Normal S1 and S2. No murmurs, gallops or rubs noted RESPIRATORY: Lungs clear to auscultation bilaterally. ABDOMINAL: Obese, No obvious lesions noted. Normal bowel sounds. No guarding or rigidity noted, nephrostomy tubes in place draining clear yellow urine EXTREMITIES: 2/4 pulses noted throughout. Normal capillary refill. 1+ pitting edema bilaterally lower extremities. Evidence of chronic venous stasis dermatitis and chronic lymphedema related to morbid obesity NEUROLOGICAL: A&O x3. Spontaneous movements of upper extremities. 5/5 muscle strength in upper extremities. 4/5 muscle strength in lower limbs. No focal deficits noted PSYCHOLOGICAL: Mood and affect were appropriate LABORATORY DATA, MICROBIOLOGY: Please see below. IMAGIN03/22/2019 CXR: No acute cardiopulmonary process appreciated 03/22/2019 renal ultrasound: Moderate bilateral hydronephrosis and cortical thinning consistent with chronic renal disease. 12 cm bladder mass ASSESSMENT AND PLAN: This is a 73-year-old white female with past medical history of stage III CKD, known bladder mass referred to the ER by balancer for hematuria and flank pain found to have leukocytosis and evidence of ROWAN on CKD, now s/p cystoscopy with biopsies taken of the mass and s/p bilateral nephrostomy tube placement due to obstruction PROBLEMS: 1. 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 -Urology consulted, unfortunately was not amenable to stenting during cystoscopy -Bilateral nephrostomy tube placement on 03/24/19 by interventional radiology -Tubes draining adequately bilaterally -Patient will need outpatient follow-up with [facility] to discuss complicated radical cystectomy, until that point will continue with Nephrostomy tubes -Oncology consulted while inpatient for further recommendations, appreciate their input 2. Gross hematuria -Secondary to the above, monitor H/H daily 3. Increased lower extremity edema. Good effect with IV lasix, will continue with daily PO lasix 80mg and pt will be discharged on this. -Continue to monitor I/Os PT for evaluation and treatment of lymphedema 4. ROWAN on CKD -secondary to bladder outlet obstruction resolved with nephrostomy tube placement -Cr continues to trend down, monitor daily 5. Multifactorial Anemia -H/H stable yesterday and dropped again this morning to 7.7/25.0, will recheck in 6 hours -Multiple contributing factors including hematuria, history of anemia of chronic disease, iron studies reveal iron deficiency -Oral iron supplement 6. Abdominal mass with urinary obstruction -Secondary to the above bladder mass 7. Morbid obesity. Patient's BMI 48.4, complicates care 8. Deconditioning - PT and OT - ARU screen for further rehab per PT recommendations DVT prophylaxis: TEDs and SCDs DISPOSITION: pending placement for further rehab per PT recommendations [facility] Vital Signs/I&O Vital Signs Date Time Temp Pulse Resp B/P (MAP) Pulse Ox O2 Delivery O2 Flow Rate FiO2 04/01/19 09:27 110 161/82 04/01/19 06:00 98.7 18 98 Room Air l I&O- Last 24 Hours up to 6 AM 04/01/19 06:00 Intake Total 2140 ml Output Total 1700 ml Balance 440 ml Laboratory Data 24H LABS Laboratory Tests 2 04/01/19 05:41: Immature Granulocyte % (Auto) , Nucleated Red Blood Cells % (auto) 0.0, Neutrophils 80H, Band Neutrophils 1, Lymphocytes (Manual) 10L, Monocytes ( Manual) 7H, Basophils (Manual) 1, Myelocytes 1H, Polychromasia 1+, Hypochromasia 1+, Anisocytosis 1+, Macrocytosis 1+, Platelet Estimate NORMAL, Anion Gap 6L, Glomerular Filtration Rate 32.8L, Calcium Level 8.2L, Magnesium Level 2.0 CBC/BMP Laboratory Tests 03/31/19 12:30 04/01/19 05:41 Microbiology Microbiology 03/22/19 Urine Culture - Final, Complete 03/22/19 Blood Culture - Final, Complete NO GROWTH AFTER 5 DAYS 03/22/19 Blood Culture - Final, Complete NO GROWTH AFTER 5 DAYS GME ATTESTATION GME ATTESTATION My faculty preceptor for this patient encounter was physically present during the encounter and was fully available. All aspects of the patient interview, examination, medical decision making process, and medical care plan development were reviewed and approved by the faculty preceptor. The faculty preceptor is aware and concurs with the plan as stated in the body of this note and will attest to such by his/her cosignature. ATTENDING NOTE I, Antonia Greenfield, have independently examined this patient and performed my own physical exam, as well as reviewed the documentation and edited where necessary. I have discussed in detail with the resident / student the findings and plan of treatment as documented by the resident / student and edited their note. I agree with their findings and treatment plan and have edited their documentation. I will continue to follow the patient during this hospital stay. JAVIER LIZARRAGA PGY-1 Apr 01, 2019 09:57 ANTONIA GREENFIELD MD Apr 01, 2019 15:09
[2019-04-01] MEDS: FUROSEMIDE 80 MG TAB PO SCH (10:42)
[2019-04-01] MEDS: PERCOCET 5MG/325MG TAB PO PRN (12:08)
[2019-04-01 13:07] LABS: HEMATOCRIT 27.8 % (36.0-47.0); HEMOGLOBIN 8.5 g/dl (12.0-15.5)
[2019-04-01 14:00] VITALS: BP 120/62
[2019-04-01 22:00] VITALS: BP 122/53
[2019-04-02 06:00] VITALS: BP 116/53
[2019-04-02 06:48] LABS: HEMATOCRIT 26.1 % (36.0-47.0); HEMOGLOBIN 8.1 g/dl (12.0-15.5); MEAN CORPUSCULAR HEMOGLOBIN 31.2 pg (27.0-33.0); MEAN CORPUSCULAR VOLUME 100.4 fl (80.0-96.0); PLATELET COUNT, AUTOMATED 383 10^3/uL (150-450); WHITE BLOOD COUNT 10.4 10^3/uL (4.0-10.0)
[2019-04-02 07:02] LABS: CALCIUM LEVEL 8.3 MG/DL (8.8-10.2); CREATININE FOR GFR 1.58 MG/DL (0.55-1.30); MAGNESIUM LEVEL 2.1 MG/DL (1.8-2.4); POTASSIUM SERUM 4.6 MEQ/L (3.5-5.1)
[2019-04-02 07:21] LABS: ANISOCYTOSIS 1+; ATYPICAL LYMPH 2 % (0-5); EOSINOPHILS 1 % (0-3); LYMPHOCYTES 11 % (16-44); METAMYELOCYTES 3 % (0-0); MONOCYTES 5 % (0-5); MYELOCYTES 2 % (0-0); NEUTROPHILS 76 % (28-66); PLATELET ESTIMATE NORMAL (NORMAL)
[2019-04-02] MEDS: CYANOCOBALAMIN 500 MCG TAB PO SCH (08:00)
[2019-04-02] MEDS: MIRALAX *UNIT DOSE* 17GM PACKET PO PRN (08:00)
[2019-04-02] MEDS: MOM 30ML SUSPENSION UDC PO PRN (08:00)
[2019-04-02] MEDS: VITAMIN D 1,000 INTERNATIONAL UNITS TABLET PO SCH (08:00)
[2019-04-02] MEDS: FUROSEMIDE 80 MG TAB PO SCH (08:01)
[2019-04-02] MEDS: FERROUS GLUCONATE 324 MG TAB PO SCH (08:01)
[2019-04-02] MEDS: PERCOCET 5MG/325MG TAB PO PRN ×2 (08:02→17:23)
[2019-04-02] MEDS: amLODIPine 5 MG TAB PO SCH (08:02)
[2019-04-02] MEDS ORDERED: LACTULOSE 20 GM/30 ML SYRUP UD PO PRN (09:15)
--- NOTE | 2019-04-02 09:45 | IPNPDOC ---
Date Seen The patient was seen on 04/02/19. Progress Note SUBJECTIVE: Patient seen and examined today, lying comfortably in bed. She denies any new complaints today. She is eating regularly without N/V. She states she has not had a BM in a few days and the medicines she tried yesterday did not help. She would like to try something else today. OBJECTIVE PHYSICAL EXAMINATION: VITAL SIGNS: See below GENERAL: Patient is obese, pleasant and cooperative, sitting upright in a chair at bedside, alert and oriented in no acute distress HEENT: Normocephalic, atraumatic. No conjunctival pallor noted. No scleral icterus. PERRLA. EOMI. SKIN: Bilateral lower limb skin changes secondary to chronic edema, dry skin CARDIOVASCULAR: Regular rate and rhythm. Normal S1 and S2. No murmurs, gallops or rubs noted RESPIRATORY: Lungs clear to auscultation bilaterally. ABDOMINAL: Obese, No obvious lesions noted. Normal bowel sounds. No guarding or rigidity noted, nephrostomy tubes in place draining clear yellow urine EXTREMITIES: 2/4 pulses noted throughout. Normal capillary refill. 1+ pitting edema bilaterally lower extremities. Evidence of chronic venous stasis dermatitis and chronic lymphedema related to morbid obesity NEUROLOGICAL: A&O x3. Spontaneous movements of upper extremities. 5/5 muscle strength in upper extremities. 4/5 muscle strength in lower limbs. No focal deficits noted PSYCHOLOGICAL: Mood and affect were appropriate LABORATORY DATA, MICROBIOLOGY: - Please see below. IMAGIN03/22/2019 CXR: No acute cardiopulmonary process appreciated 03/22/2019 renal ultrasound: Moderate bilateral hydronephrosis and cortical thinning consistent with chronic renal disease. 12 cm bladder mass ASSESSMENT AND PLAN: This is a 73-year-old white female with past medical history of stage III CKD, known bladder mass referred to the ER by orthopedic radiologic technologist for hematuria and flank pain found to have leukocytosis and evidence of ROWAN on CKD, now s/p cystoscopy with biopsies taken of the mass and s/p bilateral nephrostomy tube placement due to obstruction PROBLEMS: 1. 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 -Urology consulted, unfortunately was not amenable to stenting during cystoscopy -Bilateral nephrostomy tube placement on 03/24/19 by interventional radiology -Tubes draining adequately bilaterally -Patient will need outpatient follow-up with [facility] to discuss complicated radical cystectomy, until that point will continue with Nephrostomy tubes -Oncology consulted while inpatient for further recommendations, appreciate their input 2. Gross hematuria -Secondary to the above, monitor H/H daily 3. Increased lower extremity edema. Good effect with IV lasix, will continue with daily PO lasix 80mg and pt will be discharged on this. -Continue to monitor I/Os PT for evaluation and treatment of lymphedema 4. ROWAN on CKD -secondary to bladder outlet obstruction resolved with nephrostomy tube placement -Cr continues to trend down, monitor daily 5. Multifactorial Anemia -H/H stable yesterday and dropped again this morning to 7.7/25.0, will recheck in 6 hours -Multiple contributing factors including hematuria, history of anemia of chronic disease, iron studies reveal iron deficiency -Oral iron supplement 6. Abdominal mass with urinary obstruction -Secondary to the above bladder mass 7. Morbid obesity. Patient's BMI 48.4, complicates care 8. Deconditioning - PT and OT - ARU screen for further rehab per PT recommendations 9. Constipation - likely related to lack of activity and lasix use - Pt has tried colace, senna, and miralax without good effect - will try lactulose today DVT prophylaxis: TEDs and SCDs DISPOSITION: pending placement for further rehab per PT recommendations VS, I&O, 24H, Fishbone Vital Signs/I&O Vital Signs Date Time Temp Pulse Resp B/P (MAP) Pulse Ox O2 Delivery O2 Flow Rate FiO2 04/02/19 08:02 18 04/02/19 08:02 89 116/53 04/02/19 06:00 98.3 97 Room Air I&O- Last 24 Hours up to 6 AM 04/02/19 06:00 Intake Total 1622 ml Output Total 1900 ml Balance -278 ml Laboratory Data 24H LABS Laboratory Tests 2 04/02/19 06:13: Immature Granulocyte % (Auto) , Nucleated Red Blood Cells % (auto) 0.0, Neutr ophils 76H, Lymphocytes (Manual) 11L, Monocytes (Manual) 5, Eosinophils (Manual) 1, Metamyelocytes 3H, Myelocytes 2H, Atypical Lymphocytes 2, Anisocytosis 1+, Macrocytosis 1+, Platelet Estimate NORMAL, Anion Gap 5L, Glomerular Filtration Rate 34.0L, Calcium Level 8.3L, Magnesium Level 2.1 CBC/BMP Laboratory Tests 04/01/19 12:05 04/02/19 06:13 GME ATTESTATION GME ATTESTATION My faculty preceptor for this patient encounter was physically present during the encounter and was fully available. All aspects of the patient interview, examination, medical decision making process, and medical care plan development were reviewed and approved by the faculty preceptor. The faculty preceptor is aware and concurs with the plan as stated in the body of this note and will attest to such by his/her cosignature. ATTENDING NOTE I, Antonia Greenfield, have independently examined this patient and performed my own physical exam, as well as reviewed the documentation and edited where necessary. I have discussed in detail with the resident / student the findings and plan of treatment as documented by the resident / student and edited their note. I agree with their findings and treatment plan and have edited their documentation. I will continue to follow the patient during this hospital stay. JAVIER LIZARRAGA PGY-1 Apr 02, 2019 09:45 ANTONIA GREENFIELD MD Apr 02, 2019 14:43
[2019-04-02 14:00] VITALS: BP 141/77
[2019-04-02 22:00] VITALS: BP 134/70
[2019-04-03] MEDS: ONDANSETRON 4 MG ORAL DISINTEGRATING TAB (Q0162 PER 1MG) SL PRN ×2 (04:54→17:33)
[2019-04-03 06:00] VITALS: BP 145/86
[2019-04-03 06:59] LABS: HEMATOCRIT 28.8 % (36.0-47.0); HEMOGLOBIN 8.9 g/dl (12.0-15.5); MEAN CORPUSCULAR HEMOGLOBIN 30.4 pg (27.0-33.0); MEAN CORPUSCULAR HGB CONC 30.9 g/dl (32.0-36.5); MEAN CORPUSCULAR VOLUME 98.3 fl (80.0-96.0); PLATELET COUNT, AUTOMATED 497 10^3/uL (150-450); RED BLOOD COUNT 2.93 10^6/uL (4.00-5.40); WHITE BLOOD COUNT 12.6 10^3/uL (4.0-10.0)
[2019-04-03 07:25] LABS: LYMPHOCYTES 12 % (16-44); METAMYELOCYTES 2 % (0-0); MONOCYTES 6 % (0-5); MYELOCYTES 2 % (0-0); NEUTROPHILS 77 % (28-66); PLATELET ESTIMATE INCREASED (NORMAL)
[2019-04-03 07:26] LABS: ANISOCYTOSIS 1+; HYPOCHROMASIA 1+
[2019-04-03 07:29] LABS: CALCIUM LEVEL 9.2 MG/DL (8.8-10.2); CREATININE FOR GFR 1.7 MG/DL (0.55-1.30); GLOMERULAR FILTRATION RATE 31.3 (>39); MAGNESIUM LEVEL 2.4 MG/DL (1.8-2.4); POTASSIUM SERUM 4.3 MEQ/L (3.5-5.1)
[2019-04-03] MEDS: FUROSEMIDE 80 MG TAB PO SCH (08:07)
[2019-04-03] MEDS: CYANOCOBALAMIN 500 MCG TAB PO SCH (08:07)
[2019-04-03] MEDS: amLODIPine 5 MG TAB PO SCH (08:07)
[2019-04-03] MEDS: FERROUS GLUCONATE 324 MG TAB PO SCH (08:07)
[2019-04-03] MEDS: VITAMIN D 1,000 INTERNATIONAL UNITS TABLET PO SCH (08:07)
[2019-04-03] MEDS ORDERED: hydrOXYzine 50 MG TAB PO ONE (08:45)
[2019-04-03] MEDS ORDERED: hydrOXYzine 25 MG TAB PO PRN (08:45)
--- NOTE | 2019-04-03 11:35 | IPNPDOC ---
Text Note Date of Service The patient was seen on 04/03/19. NOTE Subjective: Patient is a 73-year-old female with a PMHx of CKD3, Anemia, Uterine / Ovarian CA, who presented to the ER sent in by her Multi [employer] Specialist for worsening renal function and hematuria. Patient was admitted to hospitalist service for further outpatient treatment and urology was called on consultation. During patient's hospitalization, patient was anticipated to have a ureteral stent placed, however this could not be done. Instead bilateral nephrostomy tubes were placed by IR and patient has been advised to follow up with Urology in [place] for definitive surgery for her bladder CA. Patient was seen and examined at the bedside. Patient reports that she has been feeling slightly anxious this morning. She denies any chest pain, shortness breath or palpitations. She does report having a large bowel movement yesterday. Denies any abdominal pain today. Objective: Vitals (See below) General: Lying in bed, no acute distress, comfortable, AAOx3 HEENT: NC, AT CVS: RRR, +S1S2 Lungs: Fair air entry b/l, auscultation is free of rhonchi, rales or wheezing Back: +Nephrostomy tubes bilaterality - dressing in place Abdomen: Soft, ND, NT Extremities: 2+ pitting edema bilaterally on top of chronic lymphedema, - Calf tenderness Imagin03/22/2019 CXR: No acute cardiopulmonary process appreciated 03/22/2019 renal ultrasound: Moderate bilateral hydronephrosis and cortical thinning consistent with chronic renal disease. 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 - s/p Bilateral nephrostomy tube placement on 03/24/2019 by IR - Continues to drain - Urology consulted, unfortunately was not amenable to stenting during cystoscopy - Patient will need outpatient follow-up with [place] urology to discuss com plicated radical cystectomy, until that point will continue with Nephrostomy tubes - Oncology consulted while inpatient for further recommendations, appreciate their input - Will check CT chest and MRI pelvis based on Oncology's recommendations s/p Gross hematuria - likely 2/2 above - Hg has remained stable Increased lower extremity edema - c/w Strict I/Os - Will check ECHO - Will reduce dose of Furosemide - c/w PT for evaluation and treatment of lymphedema ROWAN on CKD - likely 2/2 post-renal etiology 2/2 obstructive bladder CA - Cr has improved - Will reduce the dose Furosemide Multifactorial Anemia - Hg remains stable - c/w Iron supplementation Morbid obesity. - BMI 48.4 - Complicating medical care Deconditioning - c/w PT and OT - ARU screen for further rehab per PT recommendations s/p Constipation - Has had several BMs - c/w Bowel regimen as ordered DVT prophylaxis - c/w TEDs and SCDs Disposition: - c/w PT / OT - ARU screen pending VS,Fishbone, I+O VS, Fishbone, I+O Laboratory Tests 04/03/19 06:30 Vital Signs Date Time Temp Pulse Resp B/P (MAP) Pulse Ox O2 Delivery O2 Flow Rate FiO2 04/03/19 08:07 92 118/62 04/03/19 06:00 98.5 20 95 Room Air I&O- Last 24 Hours up to 6 AM 04/03/19 06:00 Intake Total 930 ml Output Total 1050 ml Balance -120 ml ZOHRA GREENFIELD MD Apr 03, 2019 11:35
--- NOTE | 2019-04-03 12:25 | REP ---
CT of the chest without IV contrast: Clinical history of uterine/bladder primary carcinoma. There are no comparison chest CT studies. There are no lung masses or nodules. There are no infiltrates or pleural effusions. There is no mediastinal or axillary adenopathy. There are a few normal-size nodes. In the absence of IV contrast the study is insensitive for hilar adenopathy. The unenhanced thoracic aorta is unremarkable. Cardiac size is upper normal. There is no pericardial effusion. In the visualized upper abdomen the unenhanced visualized hepatic parenchyma is homogeneous. There are surgical clips in the gallbladder fossa. The visualized areas of the pancreas and spleen are unremarkable. There is a right adrenal 2.2 cm nodule. The left adrenal is unremarkable. Bilateral ureteral stents are identified in the kidneys. There are no lytic, blastic or destructive skeletal changes. Impression: There are no lung nodule, masses, infiltrates or effusions. There is no adenopathy. There are no lytic, blastic or destructive skeletal changes. There is a 2.2 cm right adrenal nodule. There are surgical clips in the gallbladder fossa. There are bilateral ureteral stents. Electronically Signed by Zack Gray MD 04/03/2019 12:16 P
--- NOTE | 2019-04-03 13:24 | REPVR ---
PROCEDURE INFORMATION: Exam: MR Pelvis Without Contrast Exam date and time: 04/03/2019 12:44 PM Clinical history: 73 years old, female; Condition or disease; Other: Bladder mass; Additional info: Evaluate for pre-operative TECHNIQUE: Imaging protocol: Magnetic resonance images of the pelvis without intravenous contrast. COMPARISON: CT ABD/PELVIS W/O CONTRAST - OUTSIDE PRIOR 02/24/2019 3:30 PM FINDINGS: There is a large heterogeneously T2 hyperintense, T1 hypointense mass filling the pelvis which is multilobulated and multiseptated with multiple bands of internal T2 hypointense fibrosis. The mass has multiple lobulations extending into the pelvic fat, including a prominent nodular extension inferiorly on the left directed slightly into the inguinal canal. Multiple small foci of internal susceptibility signal within the mass may represent gas within the residual lumen of urinary bladder or hemosiderin deposition from intralesional hemorrhage. It is unclear whether this mass arises from the urinary bladder or uterus. The bladder may be displaced anteriorly and compressed by the mass. Perilesional fat T2 hyperintense edema or disease is present essentially circumferentially throughout the pelvis. Mildly enlarged bilateral inguinal lymph nodes on the left measuring up to 1.2 cm short axis and on the right measuring 1.1 cm short axis. No other appreciable pelvic lymphadenopathy within constraints of motion artifact. There is moderate body wall edema. A 0.6 cm right vaginal wall cyst is noted. IMPRESSION: Large heterogeneous multilobulated T2 hyperintense pelvic mass with abnormal T2 hyperintensity in the surrounding fat which may represent infiltrative disease or edema, difficult to differentiate on a noncontrasted study. It is unclear whether this is a uterine mass such as a leiomyosarcoma, or a primary urinary bladder mass. The bladder may be decompressed and displaced anteriorly or invaded by the pelvic mass. A CT cystogram or cystoscopy may further delineate bladder involvement if biopsy is not already been performed. Mild bilateral inguinal lymphadenopathy maybe reactive or metastatic. Electronically signed by: Gage Gee On 04/03/2019 13:24:13 PM
[2019-04-03 14:00] VITALS: BP 118/60
[2019-04-03] MEDS: PERCOCET 5MG/325MG TAB PO PRN (19:43)
[2019-04-03] MEDS ORDERED: FIDAXOMICIN 200 MG TAB (DIFICID) PO SCH (21:00)
[2019-04-03 22:00] VITALS: BP 128/58
[2019-04-04 06:00] VITALS: BP 129/56
[2019-04-04 06:17] LABS: BASO # 0.1 10^3/uL (0.0-0.2); BASO % 0.5 % (0.0-1.0); EOS # 0.1 10^3/uL (0.0-0.5); EOS % 0.5 % (0.0-3.0); HEMATOCRIT 25.6 % (36.0-47.0); HEMOGLOBIN 7.9 g/dl (12.0-15.5); LYMPH # 1.6 10^3/uL (1.5-5.0); LYMPH % 13.5 % (24.0-44.0); MEAN CORPUSCULAR HGB CONC 30.9 g/dl (32.0-36.5); MEAN CORPUSCULAR VOLUME 100.4 fl (80.0-96.0); MONO # 0.9 10^3/uL (0.0-0.8); MONO % 7.4 % (0.0-5.0); NEUTROPHILS # 8.4 10^3/uL (1.5-8.5); NEUTROPHILS % 73.3 % (36.0-66.0); PLATELET COUNT, AUTOMATED 431 10^3/uL (150-450); RED BLOOD COUNT 2.55 10^6/uL (4.00-5.40); WHITE BLOOD COUNT 11.5 10^3/uL (4.0-10.0)
[2019-04-04 06:44] LABS: CALCIUM LEVEL 8.5 MG/DL (8.8-10.2); CREATININE FOR GFR 1.86 MG/DL (0.55-1.30); GLOMERULAR FILTRATION RATE 28.2 (>39); MAGNESIUM LEVEL 2.3 MG/DL (1.8-2.4); POTASSIUM SERUM 4.3 MEQ/L (3.5-5.1)
[2019-04-04] MEDS: CYANOCOBALAMIN 500 MCG TAB PO SCH (07:51)
[2019-04-04] MEDS: VITAMIN D 1,000 INTERNATIONAL UNITS TABLET PO SCH (07:51)
[2019-04-04] MEDS: FERROUS GLUCONATE 324 MG TAB PO SCH (07:51)
[2019-04-04] MEDS: amLODIPine 5 MG TAB PO SCH (07:52)
[2019-04-04] MEDS: FUROSEMIDE 80 MG TAB PO SCH (07:53)
[2019-04-04] MEDS ORDERED: FURO40TA2 PO (11:06)
[2019-04-04] MEDS ORDERED: FERR32TA PO (11:06)
[2019-04-04] MEDS ORDERED: SENO8.6T10 PO (11:06)
--- NOTE | 2019-04-04 12:09 | REP ---
CT ABDOMEN AND PELVIS WITHOUT IV OR ORAL CONTRAST: HISTORY: Anemia. Status post nephrostomy tube. Rule out hematoma. History of high-grade urothelial carcinoma of the bladder with a 12 cm bladder mass. COMPARISON: CT abdomen study February 24, 2019. CT FINDINGS: Preliminary digital sider radiograph demonstrates bilateral percutaneous nephroureterostomy catheters. There are surgical clips in the right upper quadrant of the abdomen. There is moderate gaseous distension of the transverse. Ascending, and descending colon. Ileus versus left colonic obstruction. Axial CT images demonstrate that the lung bases are clear. The liver and the spleen are unremarkable. Bilateral percutaneous nephroureterostomy catheters are noted in place without evidence of malpositioning or perinephric hematoma. The distal loops of the pigtail catheters are both intraluminal in the urinary bladder. The urinary bladder lumen appears empty. However, the previously noted large bladder mass is seen and now contains multifocal air bubbles and an air-fluid level. The lesion is larger in overall size. Its transverse dimension is increased from 9.9 cm to 14.9 cm. Its craniocaudal extent on sagittal multiplanar reformation images has increased from 11.4 to 14.5 cm. The dilated descending colon is seen extending down to the superior margin of the mass. The sigmoid colon appears to be draped over the superior margin and it is difficult to separate from the mass. The distal colon is not dilated. The colon proximal to this is moderately dilated with air and stool. This is a new finding. I cannot exclude involvement versus extrinsic compression of this loop of sigmoid colon. There is air and stool in the rectum. IMPRESSION: Interval enlargement and necrosis with multiple air bubbles and air-fluid levels in the large bladder mass lesion. Question extrinsic compression versus involvement sigmoid colon with left colonic obstruction. Bilateral percutaneous nephroureterostomy tubes in good position. No evidence of hematoma. Electronically Signed by Jerardo Zuluaga MD 04/04/2019 01:49 P
[2019-04-04 12:51] LABS: HEMATOCRIT 28.3 % (36.0-47.0); HEMOGLOBIN 8.6 g/dl (12.0-15.5)
[2019-04-04 14:00] VITALS: BP 120/60
--- NOTE | 2019-04-04 15:48 | IPNPDOC ---
Date Seen The patient was seen on 04/04/19. Progress Note Subjective: Patient was seen and examined at the bedside. Patient reports that she has been feeling slightly anxious this morning. She denies any chest pain, shortness breath or palpitations. She does report having a large bowel movement yesterday. Denies any abdominal pain today. Objective: Vitals (See below) General: Lying in bed, no acute distress, comfortable, AAOx3 HEENT: NC, AT CVS: RRR, +S1S2 Lungs: Fair air entry b/l, auscultation is free of rhonchi, rales or wheezing Back: +Nephrostomy tubes bilaterality - dressing in place Abdomen: Soft, ND, NT Extremities: 2+ pitting edema bilaterally on top of chronic lymphedema, - Calf tenderness Imagin03/22/2019 CXR: No acute cardiopulmonary process appreciated 03/22/2019 renal ultrasound: Moderate bilateral hydronephrosis and cortical thinning consistent with chronic renal disease. 12 cm bladder mass 04/03/2019 Pelvic MRI: Large heterogeneous multilobulated T2 hyperintense pelvic mass with abnormal T2 hyperintensity in the surrounding fat which may represent infiltrative disease or edema, difficult to differentiate on a noncontrasted study. It is unclear whether this is a uterine mass such as a leiomyosarcoma, or a primary urinary bladder mass. The bladder may be decompressed and displaced anteriorly or invaded by the pelvic mass. A CT cystogram or cystoscopy may further delineate bladder involvement if biopsy is not already been performed. Mild bilateral inguinal lymphadenopathy maybe reactive or metastatic. 04/03/[address]: There are no lung nodule, masses, infiltrates or effusions. There is no adenopathy. There are no lytic, blastic or destructive skeletal changes. There is a 2.2 cm right adrenal nodule. There are surgical clips in the gallbladder fossa. There are bilateral ureteral stents. Assessment and plan: 73-year-old female with a PMHx of CKD3, Anemia, Uterine / Ovarian CA, who presented to the ER sent in by her [employer] Practitioner for worsening renal function and hematuria. Patient was admitted to hospitalist service for further outpatient treatment and urology was called on consultation. 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 s/p Gross hematuria - likely 2/2 above - H/H dropped today, likely related to blood loss from urothelial carcinoma. Recheck H/H with possible transfusion of PRBCs if indicated Increased lower extremity edema - c/w Strict I/Os - Echo results pending - Continue PO furosemide - continue PT for evaluation and treatment of lymphedema ROWAN on CKD - likely 2/2 post-renal etiology 2/2 obstructive bladder CA - Cr trending up, continue with furosemide at lower dose adjusted yesterday Multifactorial Anemia - H/H dropped today, likely related to blood loss from urothelial carcinoma. Recheck H/H with possible transfusion of PRBCs if indicated - continue iron supplementation Morbid obesity. - BMI 48.4 - Complicating medical care Deconditioning - continue PT and OT - previously planned for ARU, patient has cleared PT/OT to return home with services s/p Constipation - Has had several BMs - continue bowel regimen as ordered DVT prophylaxis - continue TEDs and SCDs Disposition: pending stabilization of H/H, PT/OT have now cleared her for home 15/12 care instead of acute rehab Attending Physician Addendum: I have independently interviewed and examined the patient at the bedside, and agree with the documented physical findings as management plan as documented above, which has been discussed with the patient and my Resident physician. VS, I&O, 24H, Fishbone Vital Signs/I&O Vital Signs Date Time Temp Pulse Resp B/P (MAP) Pulse Ox O2 Delivery O2 Flow Rate FiO2 04/04/19 06:00 97.7 92 16 129/56 (80) 93 Room Air I&O- Last 24 Hours up to 6 AM 04/04/19 06:00 Intake Total 150 ml Output Total 1175 ml Balance -1025 ml Laboratory Data 24H LABS Laboratory Tests 2 04/04/19 06:01: Immature Granulocyte % (Auto) 4.8H, Neutrophils (%) (Auto) 73.3H, Lymphocytes (%) (Auto) 13.5L, Monocytes (%) (Auto) 7.4H, Eosinophils (%) (Auto) 0.5, Basophils (%) (Auto) 0.5, Neutrophils # (Auto) 8.4, Lymphocytes # (Auto) 1.6, Monocytes # (Auto) 0.9H, Eosinophils # (Auto) 0.1, Basophils # (Auto) 0.1, Nucleated Red Blood Cells % (auto) 0.0, Anion Gap 8, Glomerular Filtration Rate 28.2L, Calcium Level 8.5L, Magnesium Level 2.3 CBC/BMP Laboratory Tests 04/04/19 06:01 04/04/19 12:18 JAVIER LIZARRAGA PGY-1 Apr 04, 2019 15:48 SOHEILA WILD MD Apr 04, 2019 16:44
[2019-04-04 19:39] VITALS: BP 127/56
[2019-04-04 22:00] VITALS: BP 108/49
[2019-04-05] VITALS (8 sets, daily range): BP systolic 103–130; BP diastolic 58–76
[2019-04-05 06:24] LABS: BASO # 0.1 10^3/uL (0.0-0.2); BASO % 0.5 % (0.0-1.0); EOS # 0.1 10^3/uL (0.0-0.5); EOS % 0.9 % (0.0-3.0); HEMATOCRIT 25.2 % (36.0-47.0); HEMOGLOBIN 7.7 g/dl (12.0-15.5); LYMPH # 1.6 10^3/uL (1.5-5.0); LYMPH % 14.8 % (24.0-44.0); MEAN CORPUSCULAR HEMOGLOBIN 30.9 pg (27.0-33.0); MEAN CORPUSCULAR HGB CONC 30.6 g/dl (32.0-36.5); MEAN CORPUSCULAR VOLUME 101.2 fl (80.0-96.0); MONO # 0.9 10^3/uL (0.0-0.8); MONO % 8.7 % (0.0-5.0); NEUTROPHILS # 7.4 10^3/uL (1.5-8.5); NEUTROPHILS % 70.3 % (36.0-66.0); PLATELET COUNT, AUTOMATED 433 10^3/uL (150-450); RED BLOOD COUNT 2.49 10^6/uL (4.00-5.40); WHITE BLOOD COUNT 10.5 10^3/uL (4.0-10.0)
--- NOTE | 2019-04-05 06:31 | ECHO ---
DATE OF STUDY: 04/04/2019 REFERRING PHYSICIAN: Dr. Antonia Munoz INDICATION: Edema. 2-D MEASUREMENTS: Ventricular septum: 0.86 cm Posterior wall: 0.82 cm Left ventricle diastole: 5.4 cm Aortic root: 3/2 cm Left atrium: 4.3 cm Left atrial volume index: 30 Inferior vena cava: 1.4 cm DOPPLER MEASUREMENTS: Aortic valve velocity: 156 cm/sec LVOT velocity: 137 cm/sec LVOT VTI: 27.9 cm No aortic regurgitation Very mild mitral regurgitation Mitral E velocity: 88.2 cm/sec Mitral A velocity: 69.1 cm/sec Mitral deceleration time: 180 ms Very mild tricuspid regurgitation Estimated right ventricular systolic pressure 43-48 mmHg assuming a right atrial pressure of 5-10 mmHg No pulmonic regurgitation MITRAL ANNULAR TISSUE DOPPLER: E prime lateral: 10.4 cm/sec E prime septal: 7.9 cm/sec DESCRIPTION: The rhythm was sinus. Image quality was adequate. No pericardial effusion. This was a 2-D, M-mode, color flow Doppler and pulse wave Doppler examination and included mitral annular tissue Doppler. CONCLUSIONS: 1. Normal left ventricle internal dimensions and wall thickness. Normal regional LV wall motion and wall thickening. Normal LV systolic function. Normal LV diastolic function for age. 2. Mild left atrial dilatation. 3. Suggestive of moderate elevation of estimated right ventricle systolic pressure. Normal right ventricle size and systolic function. Normal right atrial size. Very mild tricuspid regurgitation. Normal inferior vena cava size.
[2019-04-05 06:42] LABS: CALCIUM LEVEL 8.5 MG/DL (8.8-10.2); CREATININE FOR GFR 1.97 MG/DL (0.55-1.30); GLOMERULAR FILTRATION RATE 26.4 (>39); MAGNESIUM LEVEL 2.4 MG/DL (1.8-2.4); POTASSIUM SERUM 4.2 MEQ/L (3.5-5.1)
[2019-04-05] MEDS: amLODIPine 5 MG TAB PO SCH (08:42)
[2019-04-05] MEDS: CYANOCOBALAMIN 500 MCG TAB PO SCH (08:43)
[2019-04-05] MEDS: FERROUS GLUCONATE 324 MG TAB PO SCH (08:43)
[2019-04-05] MEDS: VITAMIN D 1,000 INTERNATIONAL UNITS TABLET PO SCH (08:43)
[2019-04-05] MEDS: FUROSEMIDE 80 MG TAB PO SCH (08:43)
--- NOTE | 2019-04-05 13:18 | IPNPDOC ---
Date Seen The patient was seen on 04/05/19. Progress Note Subjective: Patient was seen and examined this morning laying comfortably in bed. She states she feels well and feels ready to go home. She states she has been working with PT and feels she has made good progress. She denies any new or additional complaints today. She states she is hungry and would like to go back to a regular diet. She denies any nausea or vomiting. She states she does still have LLQ and left mid abdomen pain which has been stable since her admission. It does not bother her at rest, just when palpated or when walking around too a lot. Objective: VITAL SIGNS: See below GENERAL: Patient is obese, pleasant and cooperative, sitting upright in a chair at bedside, alert and oriented in no acute distress HEENT: Normocephalic, atraumatic. No conjunctival pallor noted. No scleral icterus. PERRLA. EOMI. SKIN: Bilateral lower limb skin changes secondary to chronic edema, dry skin CARDIOVASCULAR: Regular rate and rhythm. Normal S1 and S2. No murmurs, gallops or rubs noted RESPIRATORY: Lungs clear to auscultation bilaterally. No wheezing, rhonchi, rales ABDOMINAL: Obese, No obvious lesions noted. Mildly tender across the L mid abdomen into the LLQ. Normal bowel sounds. No guarding or rigidity noted, nephrostomy tubes in place draining clear yellow urine EXTREMITIES: 2/4 pulses noted throughout. Normal capillary refill. 1+ pitting edema bilaterally lower extremities. Evidence of chronic venous stasis dermatitis and chronic lymphedema related to morbid obesity NEUROLOGICAL: A&O x3. Spontaneous movements of upper extremities. 5/5 muscle strength in upper extremities. 4/5 muscle strength in lower limbs. No focal deficits noted PSYCHOLOGICAL: Mood and affect were appropriate Imagin03/22/2019 CXR: No acute cardiopulmonary process appreciated 03/22/2019 renal ultrasound: Moderate bilateral hydronephrosis and cortical thinning consistent with chronic renal disease. 12 cm bladder mass 04/03/2019 Pelvic MRI: Large heterogeneous multilobulated T2 hyperintense pelvic mass with abnormal T2 hyperintensity in the surrounding fat which may represent infiltrative disease or edema, difficult to differentiate on a noncontrasted study. It is unclear whether this is a uterine mass such as a leiomyosarcoma, or a primary urinary bladder mass. The bladder may be decompressed and displaced anteriorly or invaded by the pelvic mass. A CT cystogram or cystoscopy may further delineate bladder involvement if biopsy is not already been performed. Mild bilateral inguinal lymphadenopathy maybe reactive or metastatic. 04/03/[address]: There are no lung nodule, masses, infiltrates or effusions. There is no adenopathy. There are no lytic, blastic or destructive skeletal changes. There is a 2.2 cm right adrenal nodule. There are surgical clips in the gallbladder fossa. There are bilateral ureteral stents. 04/04/2019 CT abd/pelvis: Interval enlargement and necrosis with multiple air bubbles and air-fluid levels in the large bladder mass lesion. Question extrin sic compression versus involvement sigmoid colon with left colonic obstruction. Bilateral percutaneous nephroureterostomy tubes in good position. No evidence of hematoma. Echocardiogram 04/03/19: 1. Normal left ventricle internal dimensions and wall thickness. Normal regional LV wall motion and wall thickening. Normal LV systolic function. Normal LV diastolic function for age. 2. Mild left atrial dilatation. 3. Suggestive of moderate elevation of estimated right ventricle systolic pressure. Normal right ventricle size and systolic function. Normal right atrial size. Very mild tricuspid regurgitation. Normal inferior vena cava size. Assessment and plan: 73-year-old female with a PMHx of CKD3, Anemia, Uterine / Ovarian CA, who presented to the ER sent in by her [employer] Cl[employer] Inspector for worsening renal function and hematuria. Patient was admitted to hospitalist service for further outpatient treatment and urology was called on consultation. 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 - CT abd/pelvis yesterday showed adequate nephrostomy tube placement Question bowel obstruction on imaging - likely 2/2 extrinsic compression of colon - CT abd/pelvis results as above - pt switched to clear liquid diet last night, tolerated well and progressed to full diet this morning - pt has had BM on 04/03 but no BM yet today Gross hematuria - likely 2/2 above - nephrostomy tubes show hematuria, likely related to know bladder CA - CT abd/pelvis yesterday showed adequate nephrostomy tube placement - H/H improved today, s/p tranfusion 3 units PRBCs Increased lower extremity edema - c/w Strict I/Os - Echo results showed normal EF - Continue PO furosemide - continue PT treatment of lymphedema ROWAN on CKD - likely 2/2 post-renal etiology 2/2 obstructive bladder CA - Cr trending up, continue with furosemide at lower dose Multifactorial Anemia - H/H improved today, s/p tranfusion 3 units PRBCs - continue iron supplementation Morbid obesity. - BMI 48.4 - Complicating medical care Deconditioning - continue PT and OT - previously planned for ARU, patient has cleared PT/OT to return home with services s/p Constipation - Has had several BMs - continue bowel regimen as ordered DVT prophylaxis - continue TEDs and SCDs Disposition: pending stabilization of Cr, PT/OT have now cleared her for home w/ services ATTENDING NOTE I have personally evaluated and examined the patient. Discussed with residents and student regarding plan of care and agree with the above assessment and plan. VS, I&O, 24H, [facility] Vital Signs/I&O Vital Signs Date Time Temp Pulse Resp B/P (MAP) Pulse Ox O2 Delivery O2 Flow Rate FiO2 04/05/19 10:20 98.3 101 16 128/62 Room Air 04/05/19 09:20 98 I&O- Last 24 Hours up to 6 AM 04/05/19 06:00 Intake Total 1410 ml Output Total 775 ml Balance 635 ml Laboratory Data 24H LABS Laboratory Tests 2 04/04/19 17:40: Lactic Acid Level 1.1 04/05/19 06:09: Immature Granulocyte % (Auto) 4.8H, Neutrophils (%) (Auto) 70.3H, Lymphocytes (%) (Auto) 14.8L, Monocytes (%) (Auto) 8.7H, Eosinophils (%) (Auto) 0.9, Basophils (%) (Auto) 0.5, Neutrophils # (Auto) 7.4, Lymphocytes # (Auto) 1.6, Monocytes # (Auto) 0.9H, Eosinophils # (Auto) 0.1, Basophils # (Auto) 0.1, Nucleated Red Blood Cells % (auto) 0.0, Anion Gap 6L, Glomerular Filtration Rate 26.4L, Calcium Level 8.5L, Magnesium Level 2.4 CBC/BMP Laboratory Tests 04/05/19 06:09 JAVIER LIZARRAGA PGY-1 Apr 05, 2019 13:18 DAVID MAYFIELD MD Apr 05, 2019 19:17
[2019-04-05] MEDS: PERCOCET 5MG/325MG TAB PO PRN ×2 (13:31→21:47)
--- NOTE | 2019-04-05 16:38 | REP ---
KUB: Two views. History: Bladder mass. Question bowel obstruction. Comparison CT study April 04, 2019. Findings: Today's two views demonstrate bilateral percutaneous nephroureterostomy tubes in good position as before. There is persistent moderate gaseous distension of the colon between the ascending segment and the mid descending segment essentially unchanged from the April 04, 2019 study. The proximal transverse colon measures up to 10.9 cm in transverse dimension. There is some stool again visualized in the rectum and left colon as before. The bowel gas pattern is essentially unchanged. Left colon obstruction pattern versus substantial ileus. Electronically Signed by Jerardo Zuluaga MD 04/05/2019 05:59 P
[2019-04-06 06:00] VITALS: BP 125/88
[2019-04-06 06:35] LABS: HEMATOCRIT 26.5 % (36.0-47.0); HEMOGLOBIN 8.3 g/dl (12.0-15.5); MEAN CORPUSCULAR HEMOGLOBIN 30.7 pg (27.0-33.0); MEAN CORPUSCULAR HGB CONC 31.3 g/dl (32.0-36.5); MEAN CORPUSCULAR VOLUME 98.1 fl (80.0-96.0); PLATELET COUNT, AUTOMATED 369 10^3/uL (150-450)
[2019-04-06 06:59] LABS: CALCIUM LEVEL 8.6 MG/DL (8.8-10.2); CREATININE FOR GFR 2.06 MG/DL (0.55-1.30); GLOMERULAR FILTRATION RATE 25.1 (>39); MAGNESIUM LEVEL 2.4 MG/DL (1.8-2.4); POTASSIUM SERUM 4.3 MEQ/L (3.5-5.1)
[2019-04-06 07:23] LABS: ANISOCYTOSIS 1+; EOSINOPHILS 1 % (0-3); LYMPHOCYTES 19 % (16-44); METAMYELOCYTES 1 % (0-0); MONOCYTES 9 % (0-5); MYELOCYTES 2 % (0-0); NEUTROPHILS 68 % (28-66); PLATELET ESTIMATE NORMAL (NORMAL)
[2019-04-06] MEDS: FUROSEMIDE 80 MG TAB PO SCH (09:07)
[2019-04-06] MEDS: SENOKOT S TAB PO PRN (09:07)
[2019-04-06] MEDS: VITAMIN D 1,000 INTERNATIONAL UNITS TABLET PO SCH (09:07)
[2019-04-06] MEDS: FERROUS GLUCONATE 324 MG TAB PO SCH (09:07)
[2019-04-06] MEDS: CYANOCOBALAMIN 500 MCG TAB PO SCH (09:07)
[2019-04-06] MEDS: amLODIPine 5 MG TAB PO SCH (09:08)
[2019-04-06] MEDS: PERCOCET 5MG/325MG TAB PO PRN ×2 (09:44→20:11)
[2019-04-06] MEDS ORDERED: LACTULOSE 20 GM/30 ML SYRUP UD PO ONE (10:15)
[2019-04-06] MEDS: SENOKOT S TAB PO SCH ×2 (10:33→20:11)
[2019-04-06] MEDS ORDERED: MOM 30ML SUSPENSION UDC PO ONE (11:00)
--- NOTE | 2019-04-06 11:37 | IPNPDOC ---
Date Seen The patient was seen on 04/06/19. Progress Note Subjective: Patient was seen and examined this morning laying comfortably in bed. She states she feels well. She does continue to have left mid abdominal pain which she states is unchanged. She states she has not had a BM in the past 2 days. She denies any N/V and states her appetite is normal. Objective: VITAL SIGNS: See below GENERAL: Patient is obese, pleasant and cooperative, sitting upright in a chair at bedside, alert and oriented in no acute distress HEENT: Normocephalic, atraumatic. No conjunctival pallor noted. No scleral icterus. PERRLA. EOMI. SKIN: Bilateral lower limb skin changes secondary to chronic edema, dry skin CARDIOVASCULAR: Regular rate and rhythm. Normal S1 and S2. No murmurs, gallops or rubs noted RESPIRATORY: Lungs clear to auscultation bilaterally. No wheezing, rhonchi, rales ABDOMINAL: Obese, No obvious lesions noted. Mildly tender across the L mid abdo men into the LLQ. Normal bowel sounds. No guarding or rigidity noted, nephrostomy tubes in place draining hematuric urine EXTREMITIES: 2/4 pulses noted throughout. Normal capillary refill. 1+ pitting edema bilaterally lower extremities. Evidence of chronic venous stasis dermatitis and chronic lymphedema related to morbid obesity NEUROLOGICAL: A&O x3. Spontaneous movements of upper extremities. 5/5 muscle strength in upper extremities. 4/5 muscle strength in lower limbs. No focal deficits noted PSYCHOLOGICAL: Mood and affect were appropriate Imagin03/22/2019 CXR: No acute cardiopulmonary process appreciated 03/22/2019 renal ultrasound: Moderate bilateral hydronephrosis and cortical thinning consistent with chronic renal disease. 12 cm bladder mass 04/03/2019 Pelvic MRI: Large heterogeneous multilobulated T2 hyperintense pelvic mass with abnormal T2 hyperintensity in the surrounding fat which may represent infiltrative disease or edema, difficult to differentiate on a noncontrasted study. It is unclear whether this is a uterine mass such as a leiomyosarcoma, or a primary urinary bladder mass. The bladder may be decompressed and displaced anteriorly or invaded by the pelvic mass. A CT cystogram or cystoscopy may further delineate bladder involvement if biopsy is not already been performed. Mild bilateral inguinal lymphadenopathy maybe reactive or metastatic. 04/03/[address]: There are no lung nodule, masses, infiltrates or effusions. There is no adenopathy. There are no lytic, blastic or destructive skeletal changes. There is a 2.2 cm right adrenal nodule. There are surgical clips in the gallbladder fossa. There are bilateral ureteral stents. 04/04/2019 CT abd/pelvis: Interval enlargement and necrosis with multiple air bubbles and air-fluid levels in the large bladder mass lesion. Question extrinsic compression versus involvement sigmoid colon with left colonic obstruction. Bilateral percutaneous nephroureterostomy tubes in good position. No evidence of hematoma. Echocardiogram 04/03/19: 1. Normal left ventricle internal dimensions and wall thickness. Normal regional LV wall motion and wall thickening. Normal LV systolic function. Normal LV diastolic function for age. 2. Mild left atrial dilatation. 3. Suggestive of moderate elevation of estimated right ventricle systolic pressure. Normal right ventricle size and systolic function. Normal right atrial size. Very mild tricuspid regurgitation. Normal inferior vena cava size. Assessment and plan: 73-year-old female with a PMHx of CKD3, Anemia, Uterine / Ovarian CA, who presented to the ER sent in by her Rubber Tester for worsening renal function and hematuria. Patient was admitted to hospitalist service for further outpatient treatment and urology was called on consultation. 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 - CT abd/pelvis yesterday showed adequate nephrostomy tube placement Question bowel obstruction on imaging - likely 2/2 extrinsic compression of colon - CT abd/pelvis results as above - pt switched to clear liquid diet last night, tolerated well and progressed to full diet this morning - continue bowel regimen Gross hematuria - likely 2/2 above - nephrostomy tubes show hematuria, likely related to know bladder CA - CT abd/pelvis yesterday showed adequate nephrostomy tube placement - H/H improved today, s/p tranfusion 3 units PRBCs Increased lower extremity edema - c/w Strict I/Os - Echo results showed normal EF - Continue PO furosemide - continue PT treatment of lymphedema ROWAN on CKD - likely 2/2 post-renal etiology 2/2 obstructive bladder CA - Cr trending up, continue with furosemide at lower dose - reconsulted nephrology to re-evaluate, appreciate their input and recommendations Multifactorial Anemia - H/H improved today, s/p tranfusion 3 units PRBCs - continue iron supplementation Morbid obesity. - BMI 48.4 - Complicating medical care Deconditioning - continue PT and OT - previously planned for ARU, patient has cleared PT/OT to return home with services s/p Constipation - Has had several BMs - continue bowel regimen as ordered, added milk of magnesia today DVT prophylaxis - continue TEDs and SCDs Disposition: pending stabilization of Cr, PT/OT have now cleared her for home w/ services ATTENDING NOTE I have personally evaluated and examined the patient. Discussed with residents and student regarding plan of care and agree with the above assessment and plan. VS, I&O, 24H, Fishbone Vital Signs/I&O Vital Signs Date Time Temp Pulse Resp B/P (MAP) Pulse Ox O2 Delivery O2 Flow Rate FiO2 04/06/19 10:14 18 Room Air 04/06/19 09:08 96 145/74 04/06/19 06:00 97.6 96 I&O- Last 24 Hours up to 6 AM 04/06/19 05:59 Intake Total 2360 ml Output Total 875 ml Balance 1485 ml Laboratory Data 24H LABS Laboratory Tests 2 04/06/19 06:14: Immature Granulocyte % (Auto) , Nucleated Red Blood Cells % (auto) 0.0, Neutrophils 68H, Lymphocytes (Manual) 19, Monocytes (Manual) 9H, Eosinophils (Manual) 1, Metamyelocytes 1H, Myelocytes 2H, Anisocytosis 1+, Macrocytosis 1+, Platelet Estimate NORMAL, Anion Gap 6L, Glomerular Filtration Rate 25.1L, Calcium Level 8.6L, Magnesium Level 2.4 CBC/BMP Laboratory Tests 04/06/19 06:14 JAVIER LIZARRAGA PGY-1 Apr 06, 2019 11:37 DAVID MAYFIELD MD Apr 06, 2019 14:59
[2019-04-06 14:00] VITALS: BP 112/60
--- NOTE | 2019-04-06 18:15 | REPVR ---
PROCEDURE INFORMATION: Exam: US Duplex Lower Extremity Veins Exam date and time: 04/06/2019 5:49 PM Clinical history: 73 years old, female; Swelling (edema) of limb; Lower extremity, bilateral; Additional info: Eval dvt TECHNIQUE: Imaging protocol: Real-time duplex ultrasound of the Lower Extremities with 2-D duff scale, color Doppler flow and spectral waveform analysis with image documentation. Complete exam focused on the bilateral lower extremity veins. COMPARISON: No relevant prior studies available. FINDINGS: Right deep veins: Unremarkable. The common femoral, femoral, proximal profunda femoral and popliteal veins are patent without thrombus. Normal Doppler waveforms. Normal compressibility and/or augmentation response. Left deep veins: Unremarkable. The common femoral, femoral, proximal profunda femoral and popliteal veins are patent without thrombus. Normal Doppler waveforms. Normal compressibility and/or augmentation response. Left superficial veins: There is an accessory greater saphenous vein proximal thigh demonstrating dilatation and thrombus. Soft tissues: 6 CM in length by 1 CM in thickness small popliteal cyst on the right. IMPRESSION: No evidence of deep venous thrombosis right or left leg. Left superficial thrombophlebitis with thrombosis of a dilated accessory greater saphenous vein proximal thigh. Small right popliteal cyst. Electronically signed by: Latrell Cabrera On 04/06/2019 18:15:10 PM
[2019-04-06 20:00] VITALS: BP 113/60
[2019-04-07 06:00] VITALS: BP 144/69
--- NOTE | 2019-04-07 07:20 | REP ---
Clinical: Hydronephrosis. Status post nephrostomy. Technique: Real time duff scale ultrasound examination using curved array transducer. Findings: Kidneys demonstrate increased central sinus fat consistent with chronic medical renal disease. Right kidney measures 8.2 x 4.4 x 4.8 cm with ureteral stent identified and no evidence for hydronephrosis, obvious nephrolithiasis, or renal mass lesion. Left kidney measures 9.1 x 3.7 x 4.4 cm with ureteral stent identified and no evidence for hydronephrosis, obvious nephrolithiasis, or renal mass lesion. Large bladder mass noted. Impression: 1. kidneys demonstrate chronic medical renal disease with bilateral ureteral stents in satisfactory position and no evidence for hydronephrosis. 2. Large bladder mass noted. Electronically Signed by Isai Bennett MD 04/07/2019 07:11 A
[2019-04-07 08:31] VITALS: BP 141/71
[2019-04-07] MEDS: amLODIPine 5 MG TAB PO SCH (08:31)
[2019-04-07] MEDS: VITAMIN D 1,000 INTERNATIONAL UNITS TABLET PO SCH (08:31)
[2019-04-07] MEDS: PERCOCET 5MG/325MG TAB PO PRN (08:31)
[2019-04-07] MEDS: FERROUS GLUCONATE 324 MG TAB PO SCH (08:32)
[2019-04-07] MEDS: SENOKOT S TAB PO SCH (08:32)
[2019-04-07] MEDS: CYANOCOBALAMIN 500 MCG TAB PO SCH (08:32)
[2019-04-07 09:08] LABS: HEMATOCRIT 29.4 % (36.0-47.0); HEMOGLOBIN 9.1 g/dl (12.0-15.5); MEAN CORPUSCULAR HEMOGLOBIN 30.6 pg (27.0-33.0); PLATELET COUNT, AUTOMATED 353 10^3/uL (150-450); RED BLOOD COUNT 2.97 10^6/uL (4.00-5.40); WHITE BLOOD COUNT 12.2 10^3/uL (4.0-10.0)
[2019-04-07 09:31] LABS: CALCIUM LEVEL 8.3 MG/DL (8.8-10.2); CREATININE FOR GFR 1.8 MG/DL (0.55-1.30); GLOMERULAR FILTRATION RATE 29.3 (>39); POTASSIUM SERUM 4.6 MEQ/L (3.5-5.1)
[2019-04-07] MEDS ORDERED: LACTULOSE 20 GM/30 ML SYRUP UD PO PRN (09:45)
[2019-04-07] MEDS: LACTULOSE 20 GM/30 ML SYRUP UD PO ONE ×2 (14:00→14:12)
--- NOTE | 2019-04-07 14:38 | DS.PDOC ---
Discharge Summary General Date of Admission Mar 22, 2019 at 13:04 Date of Discharge 04/07/2019 Attending Physician: DAVID MAYFIELD MD Discharge Summary PROCEDURES PERFORMED DURING STAY: cystoscopy, bladder mass biopsy, bilateral nephrostomy tube placement ADMITTING DIAGNOSES: 1. Pyelonephritis 2. Gross Hematuria 3. ROWAN on CKD 2/2 urinary obstruction 4. Multifactorial anemia 5. Abdominal mass 6. Morbid obesity DISCHARGE DIAGNOSES: 1. Pyelonephritis 2. Gross Hematuria 3. ROWAN on CKD 2/2 urinary obstruction 4. Multifactorial anemia 5. 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 Lymphedema 7. Deconditioning 8. Morbid obesity COMPLICATIONS/CHIEF COMPLAINT: Bladder Mass. HISTORY OF PRESENT ILLNESS: Trish Siddiqui is a 73-year-old white female presenting to the ER after being referred by her wildlife refuge manager due to worsening kidney function. She explains that she's been having continued hematuria and left-sided flank pain. She reports the pain as an 8 out of 10, and does not radiate. She was admitted to [facility] on the 3rd of this month for similar complaints. She says she has a bladder mass that gives her kidney problems and was scheduled for tomorrow to have a ureteral stent placement . She says she has a catheter in place. She denies any chest pain, shortness of breath, nausea, vomiting, weakness, dizziness, fevers, chills, night sweats. HOSPITAL COURSE: Patient was admitted to the hospital. Consults were placed to urology regarding the urinary obstruction and to nephrology regarding the HPI. Nephrology felt that the HPI was related to the obstruction. Cystoscopy was planned and oriented to place ureteral stents. However, during the procedure the mass was too large and the stents were unable to be placed. A biopsy was taken of the mass during the cystoscopy. In order to temporarily relieve the urinary obstruction, interventional radiology was consults to place bilateral nephrostomy tubes. She had hematuric output, which intermittently turned clear and back to a more hematuric fluid. Biopsy results came back with high-grade urothelial cell carcinoma of the bladder, which will need to be further evaluated by urologist as MARIANN pickens for possible surgical intervention. The patient was found to have anemia which is thought to be multifactorial. Iron studies revealed an iron deficiency and she was started on iron supplementation. She also had some acute blood loss, which was attributed to her hematuria and she was transfused with 3 units PRBCs during her admission. Her H/H improved and remained stable. Patient continued to work with physical therapy and initially it seems she may need acute rehabilitation placement. She also had developed some increasing lower extremity edema during her admission and was started on Lasix IV. She was transitioned to oral Lasix. However, her creatinine, which had initially been trending down, began to trend back up. On the day of discharge, her creatinine had begun to improve. Her Lasix was held at discharge in order to prevent worsening of her kidney function. Physical therapy was also consults it for lymphedema treatment for her lower extremities. During the admission, the patient has constipation and was started on a bowel regimen, which she can continue at home. After working with physical therapy throughout her admission, it was deemed that she was safe for discharge home with continued outpatient physical therapy. On day of discharge, the patient was found to be stable and safe for discharge. DISCHARGE MEDICATIONS: Please see below. ALLERGIES: Please see below. PHYSICAL EXAMINATION ON DISCHARGE: VITAL SIGNS: Please see below. GENERAL: Patient is obese, pleasant and cooperative, sitting upright in a chair at bedside, alert and oriented in no acute distress HEENT: Normocephalic, atraumatic. No conjunctival pallor noted. No scleral icterus. PERRLA. EOMI. SKIN: Bilateral lower limb skin changes secondary to chronic edema, dry skin CARDIOVASCULAR: Regular rate and rhythm. Normal S1 and S2. No murmurs, gallops or rubs noted RESPIRATORY: Lungs clear to auscultation bilaterally. No wheezing, rhonchi, rales ABDOMINAL: Obese, No obvious lesions noted. Mildly tender across the L mid abdomen into the LLQ. Normal bowel sounds. No guarding or rigidity noted, nephrostomy tubes in place draining hematuric urine EXTREMITIES: 2/4 pulses noted throughout. Normal capillary refill. 1+ pitting edema bilaterally lower extremities. Evidence of chronic venous stasis dermatitis and chronic lymphedema related to morbid obesity NEUROLOGICAL: A&O x3. Spontaneous movements of upper extremities. 5/5 muscle strength in upper extremities. 4/5 muscle strength in lower limbs. No focal de ficits noted PSYCHOLOGICAL: Mood and affect were appropriate LABORATORY DATA: Please see below. IMAGIN03/22/2019 CXR: No acute cardiopulmonary process appreciated 03/22/2019 renal ultrasound: Moderate bilateral hydronephrosis and cortical thinning consistent with chronic renal disease. 12 cm bladder mass 04/03/2019 Pelvic MRI: Large heterogeneous multilobulated T2 hyperintense pelvic mass with abnormal T2 hyperintensity in the surrounding fat which may represent infiltrative disease or edema, difficult to differentiate on a noncontrasted study. It is unclear whether this is a uterine mass such as a leiomyosarcoma, or a primary urinary bladder mass. The bladder may be decompressed and displaced anteriorly or invaded by the pelvic mass. A CT cystogram or cystoscopy may further delineate bladder involvement if biopsy is not already been performed. Mild bilateral inguinal lymphadenopathy maybe reactive or metastatic. 04/03/[address]: There are no lung nodule, masses, infiltrates or effusions. There is no adenopathy. There are no lytic, blastic or destructive skeletal changes. There is a 2.2 cm right adrenal nodule. There are surgical clips in the gallbladder fossa. There are bilateral ureteral stents. 04/04/2019 CT abd/pelvis: Interval enlargement and necrosis with multiple air bubbles and air-fluid levels in the large bladder mass lesion. Question extrinsic compression versus involvement sigmoid colon with left colonic obstruction. Bilateral percutaneous nephroureterostomy tubes in good position. No evidence of hematoma. Echocardiogram 04/03/19: 1. Normal left ventricle internal dimensions and wall thickness. Normal regional LV wall motion and wall thickening. Normal LV systolic function. Normal LV diastolic function for age. 2. Mild left atrial dilatation. 3. Suggestive of moderate elevation of estimated right ventricle systolic pressure. Normal right ventricle size and systolic function. Normal right atrial size. Very mild tricuspid regurgitation. Normal inferior vena cava size. PROGNOSIS: Fair ACTIVITY: As tolerated. DIET: As tolerated. DISCHARGE PLAN: Home DISPOSITION: . DISCHARGE INSTRUCTIONS: 1. Follow-up with your PCP in 7-10 days 2. Please take all your medications as listed. 3. Please complete your referral to [facility] urology to discuss treatment for bladder mass. 4. If your symptoms return or your condition worsens, please call your PCP or return to the ED for further evaluation. ITEMS TO FOLLOWUP ON ON OUTPATIENT: 1. 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 Continue to work with PT in outpatient setting 3. Constipation 4. Multifactorial anemia DISCHARGE CONDITION: Stable TIME SPENT ON DISCHARGE: 35 minutes. Vital Signs/I&Os Vital Signs Date Time Temp Pulse Resp B/P (MAP) Pulse Ox O2 Delivery O2 Flow Rate FiO2 04/07/19 09:01 18 04/07/19 08:31 Room Air 04/07/19 08:31 104 141/71 04/07/19 06:00 99.5 94 I&O- Last 24 Hours up to 6 AM 04/07/19 06:00 Intake Total 900 ml Output Total 1425 ml Balance -525 ml Laboratory Data Labs 24H Laboratory Tests 2 04/07/19 08:53: Nucleated Red Blood Cells % (auto) 0.0, Anion Gap 9, Glomerular Filtration Rate 29.3L, Calcium Level 8.3L CBC/BMP Laboratory Tests 04/07/19 08:53 Discharge Medications Scheduled Amlodipine Besylate (Amlodipine Besylate) 5 Mg Tablet, 5 MG PO DAILY, (Reported) Cholecalciferol (Vitamin D3) (Vitamin D3) 1,000 Unit Tablet, 1,000 UNIT PO BK Y, (Reported) Cyanocobalamin (Vitamin B-12) (Vitamin B-12) 1,000 Mcg Capsule, 1,000 MCG PO DAILY, (Reported) Ergocalciferol (Vitamin D2) (Vitamin D2) 50,000 Unit Capsule, 50,000 UNIT PO 1XWK, (Reported) SUNDAYS Ferrous Gluconate (Ferrous Gluconate) 324 Mg Tablet, 324 MG PO DAILY Sennosides/Docusate Sodium (Senokot-S Tablet) 1 Each Tablet, 1 TAB PO BID Scheduled PRN Oxycodone/Acetaminophen (Oxycodone-Acetaminophen 5-325) 1 Each Tablet, 1 TAB PO Q8HP PRN for MODERATE/SEVERE PAIN (PS 5-10) Allergies Coded Allergies: No Known Allergies (Unverified , 02/24/19) ATTENDING NOTE I have personally evaluated and examined the patient. Discussed with residents and student regarding plan of care and agree with the above assessment and plan. JAVIER LIZARRAGA PGY-1 Apr 07, 2019 14:37 DAVID MAYFIELD MD Apr 07, 2019 16:08
[2019-04-07] MEDS ORDERED: PERCOCET PO (15:20)
[2019-04-08] MEDS ORDERED: FLOM0.4C39 PO (21:00)
[2019-04-08] MEDS ORDERED: SENN-23 PO (21:00)
== END 2019-04-07 15:06 | disposition home health service (06) | DRG 669 ==
LOC: M ED 09:37 → M ED INP 13:04 → M MSPAV 14:32
PROVIDERS: ADMIT Internal Medicine; ATTEND Student in an Organized Health Care Education/Training Program
PROC: 0TBB8ZZ Excision of Bladder, Via Natural or Artificial Opening Endoscopic (ICD-10-PCS; principal; 2019-03-23 16:00)
PROC: 0T783DZ Dilation of Bilateral Ureters with Intraluminal Device, Percutaneous Approach (ICD-10-PCS; 2019-03-24)
DX: N17.9 Acute kidney failure, unspecified (principal); Z68.42 Body mass index [BMI] 45.0-49.9, adult; D62 Acute posthemorrhagic anemia; E87.2 Acidosis; N18.3 Chronic kidney disease, stage 3 (moderate); R31.0 Gross hematuria; C67.9 Malignant neoplasm of bladder, unspecified; N13.30 Unspecified hydronephrosis; E66.01 Morbid (severe) obesity due to excess calories; N10 Acute pyelonephritis; D53.9 Nutritional anemia, unspecified; Z79.899 Other long term (current) drug therapy; I12.9 Hypertensive chronic kidney disease with stage 1 through stage 4 chronic kidney disease, or unspecified chronic kidney disease; Z85.42 Personal history of malignant neoplasm of other parts of uterus; K59.00 Constipation, unspecified

== ENCOUNTER 2019-04-08 18:54 | Inpatient (IN) | payer MEDICARE ==
[~2019-04-08] VITALS: Ht 165.1 cm; Wt 138.3 kg
[~2019-04-08 18:54] MED LIST changes: +FERR32TA PO; +FURO40TA2 PO; +PERCOCET PO; +SENO8.6T10 PO; +SODI325T9 PO; +TAMS1CAP17 PO
[2019-04-08 20:15] LABS: BASO # 0.1 10^3/uL (0.0-0.2); BASO % 0.6 % (0.0-1.0); EOS % 0.3 % (0.0-3.0); HEMATOCRIT 33.1 % (36.0-47.0); HEMOGLOBIN 10.2 g/dl (12.0-15.5); LYMPH # 1.2 10^3/uL (1.5-5.0); LYMPH % 8.8 % (24.0-44.0); MEAN CORPUSCULAR HEMOGLOBIN 31.3 pg (27.0-33.0); MEAN CORPUSCULAR HGB CONC 30.8 g/dl (32.0-36.5); MEAN CORPUSCULAR VOLUME 101.5 fl (80.0-96.0); MONO # 0.8 10^3/uL (0.0-0.8); MONO % 5.7 % (0.0-5.0); NEUTROPHILS # 11.1 10^3/uL (1.5-8.5); NEUTROPHILS % 80.5 % (36.0-66.0); PLATELET COUNT, AUTOMATED 398 10^3/uL (150-450); RED BLOOD COUNT 3.26 10^6/uL (4.00-5.40); WHITE BLOOD COUNT 13.8 10^3/uL (4.0-10.0)
--- NOTE | 2019-04-08 20:38 | REPVR ---
PROCEDURE INFORMATION: Exam: US Duplex Left Lower Extremity Veins, Limited Exam date and time: 04/08/2019 8:33 PM Clinical history: 73 years old, female; Pain; Leg, lower; Left; Additional info: Pain, swelling TECHNIQUE: Imaging protocol: Real-time Duplex ultrasound of the Left Lower Extremity with 2-D duff scale, color Doppler flow and spectral waveform analysis with image documentation. Limited exam focused on the left lower extremity veins. COMPARISON: US Duplex, Ext LOWER veins, bilat BILATERAL 04/06/2019 5:26 PM FINDINGS: Evaluation limited due to patient body habitus and the presence of leg edema. Left deep veins: Unremarkable. The common femoral, femoral, proximal profunda femoral and popliteal veins are patent without thrombus. Normal Doppler waveforms. Normal compressibility and/or augmentation response. Left superficial veins: Unremarkable. Saphenofemoral junction is patent without thrombus. Soft tissues: Lower leg edema. IMPRESSION: Lower leg edema. No DVT. Electronically signed by: Carlos Núñez On 04/08/2019 20:38:26 PM
[2019-04-08 20:45] LABS: CALCIUM LEVEL 8.7 MG/DL (8.8-10.2); CK-MB VALUE MASS 2.3 NG/ML (<3.6); CREATININE FOR GFR 2.94 MG/DL (0.55-1.30); GLOMERULAR FILTRATION RATE 16.6 (>39); MB/CK RELATIVE INDEX 2.07 (< OR =4); POTASSIUM SERUM 5.6 MEQ/L (3.5-5.1); TROPONIN I 0.23 NG/ML (< 0.10)
[2019-04-08] MEDS ORDERED: FLOM0.4C39 PO (21:00)
[2019-04-08] MEDS ORDERED: SENN-23 PO (21:00)
[2019-04-08 21:52] LABS: INR 1.48; PARTIAL THROMBOPLASTIN TIME 25.5 SECONDS (25.0-38.4); PROTHROMBIN TIME 17.7 SECONDS (11.8-14.0)
--- NOTE | 2019-04-08 22:07 | REPVR ---
PROCEDURE INFORMATION: Exam: XR Left Ankle Exam date and time: 04/08/2019 8:55 PM Clinical history: 73 years old, female; Other: Pain, swelling TECHNIQUE: Imaging protocol: XR Left ankle. Views: 3 or more views. COMPARISON: No relevant prior studies available. FINDINGS: Severe diffuse ankle soft tissue swelling, most prominent medially. Focal ovoid 10 x 7 cm cross-sectional area of medial swelling which could represent a fluid collection or mass. Bones are demineralized. Mild varus angulation of the ankle with mild widening of the lateral aspect of the tibiotalar articulation and diffuse joint space narrowing, subchondral sclerosis and marginal osteophytes in the ankle joint suggesting degenerative osteoarthrosis. Similar changes in the talonavicular joint. No acute fracture. No osseous lesion. Well-defined plantar heel spur IMPRESSION: Marked soft tissue swelling and possible mass or fluid collection in the medial aspect of the ankle measuring 10 x 7 cm. No acute fracture. Suggestion of prior ligament injury with mild varus angulation and degenerative osteoarthrosis. Electronically signed by: Troy Emmanuel On 04/08/2019 22:07:29 PM
[2019-04-08 23:31] LABS: MB/CK RELATIVE INDEX 3.08 (< OR =4); TROPONIN I 0.15 NG/ML (< 0.10)
[2019-04-09] MEDS ORDERED: PIPERACILLIN/TAZOBACTAM SOD 3.375 GM in D5W MINI-BAG PLUS 50 ML IV ONE ×2
[2019-04-09] MEDS: NS 1,000 ML IV SCH ×2 (00:43→23:21)
--- NOTE | 2019-04-09 01:00 | REPVR ---
PROCEDURE INFORMATION: Exam: US Retroperitoneal Limited, Kidneys Exam date and time: 04/09/2019 12:26 AM Clinical history: 73 years old, female; Abnormal findings; Abnormal lab test; Abnormal kidney function lab tests; Additional info: [place] TECHNIQUE: Imaging protocol: Real-time ultrasound of the retroperitoneum with image documentation. Examination was focused on the kidneys. COMPARISON: RENAL US 04/07/2019 5:38 AM FINDINGS: Right kidney: The right kidney measures 10.7 cm in its cephalocaudad dimension and 4.9 x 5.3 cm in diameter. No gross mass, cyst or hydronephrosis. 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 Left kidney: The left kidney measures 13.3 cm in its cephalocaudad dimension and 7.3 x 6.8 cm in diameter. No gross mass, cyst or hydronephrosis. 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 Bladder: The urinary bladder is not seen. IMPRESSION: 1. Suggestion of renal sinus lipomatosis bilaterally. 2. Otherwise grossly negative renal sonogram with limited visualization of the kidneys. The bladder is not seen. Electronically signed by: Reymundo Moore On 04/09/2019 01:00:06 AM
[2019-04-09 01:40] VITALS: BP 139/63
[2019-04-09] MEDS ORDERED: SENOKOT S TAB PO PRN (01:45)
--- NOTE | 2019-04-09 01:50 | HPEPDOC ---
[facility] Medical History & Physical Date of Admission Apr 09, 2019 Date of Service: Apr 09, 2019 Other Provider Ramez Munoz MD Attending Physician: BARB DIAZ MD History and Physical CHIEF COMPLAINT: weakness, lethargy HISTORY OF PRESENT ILLNESS: Trish Siddiqui is a 73 YO F with history of bladder mass (biopsy-proven urothelial cell carcinoma of the bladder) and recent hospit alization and placement of bilateral nephrostomy tubes, who presents to days after her most recent discharge for feelings of weakness and difficulty getting off her couch. She states that after discharge she took all her medication as prescribed and was feeling well until this morning when she felt an overwhelming sense of weakness, fatigue, lethargy, which prompted her to call EMS. She denies any shortness of breath, cough, nausea, vomiting or diarrhea. She does have some generalized abdominal pain which she is unable to localize. She noticed blood- tinged drainage from her nephrostomy tubes. She was also complaining of left ankle pain and difficulties walking. REVIEW OF SYSTEMS: CONSTITUTIONAL: Feels weak, lethargic. Denies fevers or chills HEENT: denies vision changes, no sinus problems, denies any trouble swallowing CARDIOVASCULAR: no palpitations RESPIRATORY: Denies any shortness of breath GENITOURINARY: No dysuria MUSCULOSKELETAL: Reports ankle pain GASTROINTESTINAL: Reports some generalized abdominal pain, no nausea/vomiting/diarrhea SKIN: No new rashes or lesions NEUROLOGICAL: No loss of sensation PSYCHIATRIC: Reports normal mood, no delusions or hallucinations ENDOCRINE: No hot/cold intolerance HEMATOLOGIC/LYMPHATIC: No easy bruising, no lumps/bumps ALLERGIC/IMMUNOLOGIC: No sinus symptoms PAST MEDICAL HISTORY: 1. Stage 3 CKD 2. Chronic anemia 3. ? Uterine/Ovarian cancer Denies history of KS, Hyperlipidemia, CVA, or diabetes PAST SURGICAL HISTORY: 1. s/p appendectomy. 2. s/p hysterectomy 3. s/p R. Cataract surgery SOCIAL HISTORY: Denies smoking history Denies Alcohol use Denies illicit drug use FAMILY HISTORY: Father: " of emphysema" Mother: No known medical history ALLERGIES: Please see below. HOME MEDICATIONS: Please see below. PHYSICAL EXAMINATION: VITAL SIGNS: Please see below. GENERAL APPEARANCE: Laying in bed, appears stated age, no acute distress, calm, cooperative HEENT: EOMI, PERRLA, neck is supple with no thyromegaly or lymphadenopathy RESPIRATORY: Lungs are clear to auscultation bilaterally with no adventitious breath sounds appreciated CARDIOVASCULAR: no JVD, RRR,no murmurs/rubs/gallops ABDOMEN: Obese, No obvious lesions noted. Mildly tender across the L mid abdomen into the LLQ. Normal bowel sounds. No guarding or rigidity noted, nephrostomy tubes in place draining pink tinged urine EXTREMITIES: 2/4 pulses noted throughout. Normal capillary refill. 1+ pitting edema bilaterally lower extremities. Evidence of chronic venous stasis dermatitis and chronic lymphedema related to morbid obesity NEUROLOGICAL: No obvious focal deficits PSYCHIATRIC: normal mood/affect Skin: No rashes or ulcers. LN: No significant cervical or inguinal lymphadenopathy LABORATORY DATA: See below. IMAGING: LE DOPPLER: IMPRESSION: Lower leg edema. No DVT. XR L ANKLE: IMPRESSION: Marked soft tissue swelling and possible mass or fluid collection in the medial aspect of the ankle measuring 10 x 7 cm. No acute fracture. Suggestion of prior ligament injury with mild varus angulation and degenerative osteoarthrosis. RENAL US: IMPRESSION: 1. Suggestion of renal sinus lipomatosis bilaterally. 2. Otherwise grossly negative renal sonogram with limited visualization of the kidneys. The bladder is not seen. CXR read pending MICROBIOLOGY: Please see below. ASSESSMENT: This is a 73-year-old female with known urothelial cell carcinoma of the bladder, status post bilateral nephrostomy tube placement, who will be admitted for management of acute on chronic renal failure and weakness possibly 2/2 deconditioning. PLAN: 1. Acute on chronic renal failure -Patient's creatinine on discharge was 1.8 and found to be 2.94 today. BUN 47. -Likely secondary to medication side effect vs dehydration vs post obstructive cause. The patient does have a known bladder mass and nephrostomy tubes are serving to divert urine as she suffered from obstruction previously. It is possible that there is a new infection versus other type of obstruction in or around nephrostomy tubes -Patient is to follow-up with Dr. Costa this week regarding nephrostomy tubes -Will check urine labs, FeUrea. -Strict I/O for urine output, weigh daily 2. SIRS -cause TBD -possible causes include kidney infection, cancer or other infection -WBC found to be elvated at 13.8, HR >100, lactic acid 2.0, patient is afebrile. Her WBC was 12.2 on discharge just 2 days ago. -CXR negative for PNA -s/p one dose zosyn in ED -f/u blood cx, and UCx 3. Weakness / Deconditioning - likely 2/2 deconditioning vs infection. - she was c/o of difficulties walking - xray of the ankle reviewed -PT/OT consult. Patient was set up to work with outpatient rehab 4. Elevated troponin -Likely 2/2 demand ischemia -Initially elevated at 0.23 but trended down to 0.15. -No EKG changes noted at this time -Will continue to trend -Continuous telemetry 4. High-grade urothelial cell carcinoma of the bladder -The patient is to follow-up with urology in [place] for surgery once she is medically cleared. Arrangements have already been made for initial referral appointment. 5. Mild Hyperkalemia -K found to be 5.6 -likely 2/2 medication side effect or ROWAN - No EKG changes noted -Will recheck BMP in AM 6. Multifactorial Anemia: -2/2 blood loss -she also has macrocytosis -Required transfusions & Venofer on last hospitalization -f/u CBC 7. Elevated BNP -found to be 16,416 -Recent Echo not diagnostic for CHF but does note moderate elevation of RVSP -acute elevation possibly due to renal impairment resulting in reduced clearance of naturetic peptide -the patient also has other risk factors for elevated BNP including older age, female sex and CKD 8. Lower extremity edema -Mostly chronic 2/2 lymphedema. -The patient does report having some pain in her ankles. X-ray was negative for any acute fractures. -Doppler ultrasound negative for any DVTs. 9. Morbid obesity -BMI 48 -Complicates care -will order bariatric air mattress to prevent skin ulcers -she can follow up with her PCP for a sleep study, if she hasn't already had one, and referral to a covered button maker DVT ppx: SQ Heparin DISPO: possible placement after more than 2 midnight's stay pending clinical improvement; a PFS consult has been placed Vital Signs Vital Signs Date Time Temp Pulse Resp B/P (MAP) Pulse Ox O2 Delivery O2 Flow Rate FiO2 04/08/19 23:18 98 94 Room Air 04/08/19 21:15 110/53 (72) 04/08/19 19:11 97.9 18 Laboratory Data Labs 24H Laboratory Tests 2 11/15/19 20:06: Immature Granulocyte % (Auto) 4.1H, Neutrophils (%) (Auto) 80.5H, Lymphocytes (%) (Auto) 8.8L, Monocytes (%) (Auto) 5.7H, Eosinophils (%) (Auto) 0.3, Basophils (%) (Auto) 0.6, Neutrophils # (Auto) 11.1H, Lymphocytes # (Auto) 1.2L, Monocytes # (Auto) 0.8, Eosinophils # (Auto) 0.0, Basophils # (Auto) 0.1, Nucleated Red Blood Cells % (auto) 0.2H, Urine Color YELLOW, Urine Appearance TURBIDH, Urine pH 5.0, Urine Specific [place] 1.027, Urine Protein 2+H, Urine Glucose (UA) NEGATIVE, Urine Ketones TRACEH, Urine Blood 3+H, Urine Nitrite NEGATIVE, Urine Bilirubin NEGATIVE, Urine Urobilinogen 0.2, Urine Leukocyte Esterase 2+H, Urine WBC (Auto) TNTCH, Urine RBC (Auto) TNTCH, Urine Hyaline Casts (Auto) 0, Urine Bacteria (Auto) NEGATIVE, Urine Squamous Epithelial Cells 0, Urine Amorphous Sediment SMALLH, Urine Sperm (Auto) , Anion Gap 10, Glomerular Filtration Rate 16.6L, Calcium Level 8.7L, Total Creatine Kinase 111, Creatine Kinase MB 2.3, Creatine Kinase MB Relative Index 2.07, Troponin I 0.23H , HX-Hph-J-Type Natriuretic Peptide [id number] 04/08/19 21:36: Prothrombin Time 17.7H, Prothromb Time International Ratio 1.48, Activated Partial Thromboplast Time 25.5 04/08/19 22:53: Total Creatine Kinase 65, Creatine Kinase MB 2.0, Creatine Kinase MB Relative Index 3.08, Troponin I 0.15#H CBC/BMP Laboratory Tests 04/08/19 20:06 Microbiology Microbiology 04/08/19 Blood Culture, Received Pending 04/08/19 Urine Culture, Received Pending 04/08/19 Urine Culture, Received Pending 04/08/19 Blood Culture, Received Pending Home Medications Scheduled Amlodipine Besylate (Amlodipine Besylate) 5 Mg Tablet, 5 MG PO DAILY Cyanocobalamin (Vitamin B-12) (Vitamin B-12) 1,000 Mcg Capsule, 1,000 MCG PO DAILY Ergocalciferol (Vitamin D2) (Vitamin D2) 50,000 Unit Capsule, 50,000 UNIT PO 1XWK SUNDAYS Tamsulosin HCl (Flomax) 0.4 Mg Capsule, 0.4 MG PO DAILY Scheduled PRN Sennosides/Docusate Sodium (Senna-S Tablet) 1 Each Tablet, 1 TAB PO BID PRN for CONSTIPATION Allergies Coded Allergies: No Known Allergies (Unverified , 02/24/19) A-FIB/CHADSVASC A-FIB History Current/History of A-Fib/PAF?: No GME ATTESTATION GME ATTESTATION My faculty preceptor for this patient encounter was physically present during the encounter and was fully available. All aspects of the patient interview, examination, medical decision making process, and medical care plan development were reviewed and approved by the faculty preceptor. The faculty preceptor is aware and concurs with the plan as stated in the body of this note and will attest to such by his/her cosignature. ATTENDING NOTE I examined at 1150PM, discussed the case with , edited the note and agree with the findings as documented. MARU SILVERIO MD Apr 09, 2019 00:10 BARB DIAZ MD Apr 09, 2019 02:00
[2019-04-09 04:47] LABS: HEMATOCRIT 34.1 % (36.0-47.0); HEMOGLOBIN 10.6 g/dl (12.0-15.5); MEAN CORPUSCULAR HEMOGLOBIN 30.5 pg (27.0-33.0); MEAN CORPUSCULAR HGB CONC 31.1 g/dl (32.0-36.5); MEAN CORPUSCULAR VOLUME 98.3 fl (80.0-96.0); RED BLOOD COUNT 3.47 10^6/uL (4.00-5.40)
[2019-04-09 04:48] LABS: VENOUS BASE EXCESS -2.7 (-2.0-2.0); VENOUS HCO3 20.3 MEQ/L (23.0-27.0); VENOUS O2 SATURATION 99.2 % (60.0-80.0); VENOUS PARTIAL PRESSURE CO2 29.3 mmHg (38.0-50.0); VENOUS PARTIAL PRESSURE O2 183.7 mmHg (30.0-50.0); VENOUS PH 7.458 UNITS (7.330-7.430); VENOUS STANDARD HCO3 22.2 MEQ/L; VENOUS TOTAL CO2 21.2 MEQ/L (24.0-28.0)
[2019-04-09 04:54] LABS: PLATELET COUNT, AUTOMATED 280 10^3/uL (150-450)
[2019-04-09 05:16] LABS: CALCIUM LEVEL 8.5 MG/DL (8.8-10.2); CREATININE FOR GFR 2.79 MG/DL (0.55-1.30); GLOMERULAR FILTRATION RATE 17.7 (>39); MAGNESIUM LEVEL 2.6 MG/DL (1.8-2.4); POTASSIUM SERUM 4.6 MEQ/L (3.5-5.1)
[2019-04-09] MEDS: HEPARIN SOD (PORCINE) 5000 UNITS/ML VIAL SC SCH ×3 (05:17→21:38)
[2019-04-09 06:00] VITALS: BP 133/63
--- NOTE | 2019-04-09 08:28 | REP ---
Portable chest x-ray: Single view. History: Chest pain. Comparison chest x-ray: March 22, 2019. Findings: EKG monitoring electrodes are seen. The lungs are well inflated and no infiltrate is seen. Pleural angles are sharp. Cardiomediastinal silhouette is unchanged. There are clips in right upper quadrant of the abdomen. Impression: No acute abnormality. Electronically Signed by Jerardo Zuluaga MD 04/09/2019 08:20 A
[2019-04-09] MEDS: TAMSULOSIN 0.4 MG CAP PO SCH (08:49)
[2019-04-09] MEDS: CYANOCOBALAMIN 500 MCG TAB PO SCH (08:49)
[2019-04-09] MEDS: amLODIPine 5 MG TAB PO SCH (08:52)
[2019-04-09 10:00] VITALS: BP 127/66
[2019-04-09] MEDS: ACETAMINOPHEN TAB 650MG DOSE (2X325MG) PO PRN (10:11)
--- NOTE | 2019-04-09 10:41 | IPNPDOC ---
Date Seen The patient was seen on 04/09/19. Progress Note SUBJECTIVE: Patient was seen and examined saline comfortably in bed. She states she got up yesterday morning and sat on the couch, but then was unable to get herself up off the couch. She states she was unable to walk due to her left ankle pain. She denies any current pain in her back does continue to have mid abdomen pain on the left side, which is about the same as when she was discharged 2 days ago. She denies any current chest pain or shortness of breath. She denies any additional complaints today. OBJECTIVE: VITAL SIGNS: See below GENERAL: Patient is obese, pleasant and cooperative, sitting upright in a chair at bedside, alert and oriented in no acute distress HEENT: Normocephalic, atraumatic. No conjunctival pallor noted. No scleral icterus. PERRLA. EOMI. SKIN: Bilateral lower limb skin changes secondary to chronic edema, dry skin CARDIOVASCULAR: Regular rate and rhythm. Normal S1 and S2. No murmurs, gallops or rubs noted RESPIRATORY: Lungs clear to auscultation bilaterally. No wheezing, rhonchi, rales ABDOMINAL: Obese, No obvious lesions noted. Mildly tender across the L mid abdomen into the LLQ. Normal bowel sounds. No guarding or rigidity noted, nephrostomy tubes in place draining hematuric urine EXTREMITIES: 2/4 pulses noted throughout. Normal capillary refill. 1+ pitting edema bilaterally lower extremities. Evidence of chronic venous stasis dermatitis and chronic lymphedema related to morbid obesity NEUROLOGICAL: A&O x3. Spontaneous movements of upper extremities. 5/5 muscle strength in upper extremities. 4/5 muscle strength in lower limbs. No focal def icits noted PSYCHOLOGICAL: Mood and affect were appropriate ASSESSMENT: This is a 73-year-old female with known urothelial cell carcinoma of the bladder, status post bilateral nephrostomy tube placement, who will be admitted for management of acute on chronic renal failure and weakness possibly 2/2 deconditioning. PLAN: 1. Acute on chronic renal failure: - Patient's creatinine on discharge was 1.8 and found to be 2.94 on admission, improved to Cr 2.79 - Likely secondary to medication side effect vs dehydration vs post obstructive cause. The patient does have a known bladder mass and nephrostomy tubes are serving to divert urine as she suffered from obstruction previously. It is possible that there is a new infection versus other type of obstruction in or around nephrostomy tubes - Patient is to follow-up with Dr. Costa this week regarding nephrostomy tubes - Will check urine labs, FeUrea. - Strict I/O for urine output, weigh daily 2. Weakness / Deconditioning: - likely 2/2 deconditioning vs infection, pt was c/o of difficulties walking - xray of the ankle reviewed - PT/OT consult. Patient was set up to work with outpatient rehab 3. SIRS criteria met on admission - likely 2/2 to known urothelial carcinoma, less likely 2/2 infection - WBC found to be elvated at 13.8, HR >100, lactic acid 2.0, patient is afebrile. Her WBC was 12.2 on discharge just 2 days ago. - CXR negative for PNA - s/p one dose zosyn in ED - f/u blood cx, and UCx 3. Elevated troponin - likely 2/2 demand ischemia - Initially elevated at 0.23 but trended down to 0.15. - No EKG changes noted at this time - Continuous telemetry 4. 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 Arrangements have already been made for initial referral appointment. 5. Mild Hyperkalemia: - K found to be 5.6 on admission, improved to 4.6 this AM - likely 2/2 medication side effect or ROWAN - No EKG changes noted 6. Multifactorial Anemia - 2/2 blood loss - she also has macrocytosis - Required transfusions & Venofer on last hospitalization - monitory CBC daily 7. Elevated BNP - found to be 16,416 - Recent Echo not diagnostic for CHF but does note moderate elevation of RVSP - acute elevation possibly due to renal impairment resulting in reduced clearance of naturetic peptide - the patient also has other risk factors for elevated BNP including older age, female sex and CKD 8. Lower extremity edema: - Mostly chronic 2/2 lymphedema. - The patient does report having some pain in her ankles. X-ray was negative for any acute fractures. - Doppler ultrasound negative for any DVTs. 9. Morbid obesity - BMI 48, Complicates care DVT ppx: SQ Heparin DISPO: possible placement pending PT/OT evaluation; a PFS consult has been placed ATTENDING NOTE I have personally evaluated and examined the patient. Discussed with residents and student regarding plan of care and agree with the above assessment and plan. [facility]O Vital Signs Date Time Temp Pulse Resp B/P (MAP) Pulse Ox O2 Delivery O2 Flow Rate FiO2 04/09/19 08:52 94 128/65 04/09/19 06:00 98.6 17 94 Room Air I&O- Last 24 Hours up to 6 AM 04/09/19 05:59 Intake Total 0 ml Output Total 80 ml Balance -80 ml Laboratory Data 24H LABS Laboratory Tests 2 04/08/19 20:06: Immature Granulocyte % (Auto) 4.1H, Neutrophils (%) (Auto) 80.5H, Lymphocytes (%) (Auto) 8.8L, Monocytes (%) (Auto) 5.7H, Eosinophils (%) (Auto) 0.3, Ba sophils (%) (Auto) 0.6, Neutrophils # (Auto) 11.1H, Lymphocytes # (Auto) 1.2L, Monocytes # (Auto) 0.8, Eosinophils # (Auto) 0.0, Basophils # (Auto) 0.1, Nucleated Red Blood Cells % (auto) 0.2H, Urine Color YELLOW, Urine Appearance TURBIDH, Urine pH 5.0, Urine Specific [place] 1.027, Urine Protein 2+H, Urine Glucose (UA) NEGATIVE, Urine Ketones TRACEH, Urine Blood 3+H, Urine Nitrite NEGATIVE, Urine Bilirubin NEGATIVE, Urine Urobilinogen 0.2, Urine Leukocyte Esterase 2+H, Urine WBC (Auto) TNTCH, Urine RBC (Auto) TNTCH, Urine Hyaline Casts (Auto) 0, Urine Bacteria (Auto) NEGATIVE, Urine Squamous Epithelial Cells 0, Urine Amorphous Sediment SMALLH, Urine Sperm (Auto) , Anion Gap 10, Glomerular Filtration Rate 16.6L, Calcium Level 8.7L, Total Creatine Kinase 111, Creatine Kinase MB 2.3, Creatine Kinase MB Relative Index 2.07, Troponin I 0.23H, WU-Ymu-J-Type Natriuretic Peptide [id number] 04/08/19 21:36: Prothrombin Time 17.7H, Prothromb Time International Ratio 1.48, Activated Partial Thromboplast Time 25.5 04/08/19 22:53: Total Creatine Kinase 65, Creatine Kinase MB 2.0, Creatine Kinase MB Relative Index 3.08, Troponin I 0.15#H 04/09/19 01:00: Lactic Acid Level 2.0 04/09/19 02:13: Urine Random Urea Nitrogen 135 04/09/19 04:38: Nucleated Red Blood Cells % (auto) 0.0, Blood Gas Puncture Site UNKNOWN, Blood Gas Bicarbonate Standard 22.2, Venous Blood pH 7.458H, Venous Blood Partial Pressure CO2 29.3L, Venous Blood Partial Pressure O2 183.7H, Venous Blood Total Carbon Dioxide 21.2L, Venous Blood HCO3 20.3L, Venous Blood Oxygen Saturation 99.2H, Venous Blood Base Excess -2.7L, Anion Gap 10, Glomerular Filtration Rate 17.7L, Calcium Level 8.5L, Magnesium Level 2.6H CBC/BMP Laboratory Tests 04/08/19 20:06 04/09/19 04:38 Microbiology Microbiology 04/08/19 Blood Culture, Received Pending 04/08/19 Urine Culture, Received Pending 04/08/19 Urine Culture, Received Pending 04/08/19 Blood Culture, Received Pending JAVIER LIZARRAGA PGY-1 Apr 09, 2019 10:41 DAVID MAYFIELD MD Apr 09, 2019 15:16
[2019-04-09 14:00] VITALS: BP 113/66
[2019-04-09 18:00] VITALS: BP 118/64
[2019-04-09 22:00] VITALS: BP 116/63
[2019-04-10 02:00] VITALS: BP 106/57
[2019-04-10] MEDS: HEPARIN SOD (PORCINE) 5000 UNITS/ML VIAL SC SCH ×3 (05:11→21:05)
[2019-04-10 06:00] VITALS: BP 116/59
[2019-04-10 08:43] LABS: HEMATOCRIT 26.8 % (36.0-47.0); MEAN CORPUSCULAR HEMOGLOBIN 30.5 pg (27.0-33.0); MEAN CORPUSCULAR HGB CONC 30.6 g/dl (32.0-36.5); MEAN CORPUSCULAR VOLUME 99.6 fl (80.0-96.0); PLATELET COUNT, AUTOMATED 276 10^3/uL (150-450); RED BLOOD COUNT 2.69 10^6/uL (4.00-5.40); WHITE BLOOD COUNT 9.8 10^3/uL (4.0-10.0)
[2019-04-10 09:04] LABS: HEMOGLOBIN 8.2 g/dl (12.0-15.5)
[2019-04-10 09:05] LABS: CALCIUM LEVEL 7.9 MG/DL (8.8-10.2); CREATININE FOR GFR 2.37 MG/DL (0.55-1.30); GLOMERULAR FILTRATION RATE 21.3 (>39)
[2019-04-10 10:00] VITALS: BP 115/55
[2019-04-10] MEDS: TAMSULOSIN 0.4 MG CAP PO SCH (10:03)
[2019-04-10] MEDS: CYANOCOBALAMIN 500 MCG TAB PO SCH (10:03)
[2019-04-10] MEDS: amLODIPine 5 MG TAB PO SCH (10:06)
--- NOTE | 2019-04-10 11:57 | ECGEPIP ---
[facility] - ED Test Date: 2019-04-08 Pat Name: NATALIE GONZALEZ Department: Room: [place] [address] Gender: Female Journey Lineman: JASMINA : 1945 Requested By: SHERLEY [place] Order Number: [id number] Reading MD: Emely Dial Measurements Intervals [place] Rate: 106 P: 75 [place]: 143 QRS: 24 QRSD: 94 T: 24 QT: 343 QTc: 457 Interpretive Statements SINUS TACHYCARDIA WITH FREQUENT SUPRAVENTRICULAR PREMATURE COMPLEXES LOW QRS VOLTAGE IN PRECORDIAL LEADS PATTERN CONSISTENT WITH PULMONARY DISEASE NSTTW abnormalities INCREASED ECTOPY 03/22/19 Electronically Signed on 04-10-2019 11:57:42 EST by Emely Dial
[2019-04-10 14:00] VITALS: BP 102/54
--- NOTE | 2019-04-10 16:43 | IPNPDOC ---
Date Seen The patient was seen on 04/10/19. Progress Note SUBJECTIVE: Patient reported feeling fine today. Afebrile overnight. Leukocytosis resolved. Cr trended down 2.79 to 2.37. OBJECTIVE PHYSICAL EXAMINATION: VITAL SIGNS: Please see below. General: No acute distress, Alert, morbidly obese Eyes: Normal sclera, EOMI, CATHIE HENT: Atraumatic Cardiovascular: Normal rate, normal rhythm. Pulmonary: Clear to auscultation b/l, no wheezing GI: Soft, nontender, obese Skin: Warm and dry Neuro: CN grossly intact. No focal deficits. LABORATORY DATA, IMAGING STUDIES, MICROBIOLOGY: Please see below. DVT prophylaxis ordered?: HSQ ASSESSMENT AND PLAN: 1. ROWAN on CKD - Cr labile. Was elevated prior to last admission due to obstruction but had improved post nephrostomy tube placement due to bladder mass. - Nephrology previously following. Reconsult if needed. - Monitor daily BMP. 2. Weakness/deconditioning - ambulation has become increasingly difficult. - c/w PT eval and treatment. - likely will need Rehab. 3. Elevated troponin - trended down, denies any chest pain. - No EKG changes. likely demand ischemia in setting of ROWAN and CKD. - ECHO obtained, possible underlying CHF. 4. Bladder cancer - to f/u Urology in [place] post discharge. 5. Lymphedema/LE edema - chronic. Not sure if compression stocking will fit but will be beneficial. - Previously started on Lasix but developed worsening ROWAN and have been held. - Consider restarting if needed. DISPOSITION: Likely Rehab placement. [facility] Vital Signs/I&O Vital Signs Date Time Temp Pulse Resp B/P (MAP) Pulse Ox O2 Delivery O2 Flow Rate FiO2 04/10/19 14:00 98.6 104 20 102/54 (70) 95 Room Air I&O- Last 24 Hours up to 6 AM 04/10/19 06:00 Intake Total 2700 ml Output Total 800 ml Balance 1900 ml Laboratory Data 24H LABS Laboratory Tests 2 04/10/19 08:04: Nucleated Red Blood Cells % (auto) 0.0 04/10/19 08:31: Anion Gap 8, Glomerular Filtration Rate 21.3L, Calcium Level 7.9L CBC/BMP Laboratory Tests 04/10/19 08:04 04/10/19 08:31 Microbiology Microbiology 04/08/19 Blood Culture - Preliminary, Resulted No growth after 24 hours . All specim... 04/08/19 Urine Culture, Received Pending 04/08/19 Urine Culture, Received Pending 04/08/19 Blood Culture - Preliminary, Resulted No growth after 24 hours . All specim... DAVID MAYFIELD MD Apr 10, 2019 16:42
[2019-04-10 22:00] VITALS: BP 125/57
[2019-04-11] MEDS: NS 1,000 ML IV SCH (00:02)
[2019-04-11 02:00] VITALS: BP 118/56
[2019-04-11] MEDS: HEPARIN SOD (PORCINE) 5000 UNITS/ML VIAL SC SCH ×3 (05:17→21:10)
[2019-04-11 05:53] LABS: HEMATOCRIT 26.6 % (36.0-47.0); HEMOGLOBIN 8.1 g/dl (12.0-15.5); MEAN CORPUSCULAR HEMOGLOBIN 30.2 pg (27.0-33.0); MEAN CORPUSCULAR HGB CONC 30.5 g/dl (32.0-36.5); MEAN CORPUSCULAR VOLUME 99.3 fl (80.0-96.0); PLATELET COUNT, AUTOMATED 284 10^3/uL (150-450); RED BLOOD COUNT 2.68 10^6/uL (4.00-5.40); WHITE BLOOD COUNT 10.4 10^3/uL (4.0-10.0)
[2019-04-11 06:00] VITALS: BP 122/58
[2019-04-11 06:15] LABS: CALCIUM LEVEL 7.8 MG/DL (8.8-10.2); CREATININE FOR GFR 1.9 MG/DL (0.55-1.30); GLOMERULAR FILTRATION RATE 27.5 (>39); POTASSIUM SERUM 3.7 MEQ/L (3.5-5.1)
[2019-04-11] MEDS: TAMSULOSIN 0.4 MG CAP PO SCH (09:51)
[2019-04-11] MEDS: amLODIPine 5 MG TAB PO SCH (09:51)
[2019-04-11] MEDS: CYANOCOBALAMIN 500 MCG TAB PO SCH (09:51)
[2019-04-11 10:00] VITALS: BP 125/56
--- NOTE | 2019-04-11 12:17 | IPNPDOC ---
Text Note Date of Service The patient was seen on 04/11/19. NOTE Patient reported feeling fine today. No New complaints. Nephrostomy tube is draining well OBJECTIVE PHYSICAL EXAMINATION: VITAL SIGNS: Please see below. General: No acute distress, Alert, morbidly obese Eyes: Normal sclera, EOMI, CATHIE HENT: Atraumatic Cardiovascular: Normal rate, normal rhythm. Pulmonary: Clear to auscultation b/l, no wheezing GI: Soft, nontender, obese Skin: Warm and dry Neuro: CN grossly intact. No focal deficits. LABORATORY DATA, IMAGING STUDIES, MICROBIOLOGY: Please see below. ASSESSMENT AND PLAN: 1. ROWAN on CKD: Cr labile but stable. Was elevated prior to last admission due to obstruction but had improved post nephrostomy tube placement due to bladder mass. Nephrology previously following. Reconsult if needed. Continue to monitor the nephrostomy output. Input output monitoring. Avoid any nephrotoxic drugs. 2. Weakness/deconditioning : ambulation has become increasingly difficult. c/w PT eval and treatment. likely will need Rehab. 3. Elevated troponin: Denies any chest pain. Troponins have had a flat trend. No EKG changes. Related to chronic kidney disease. Continue following the echo. 4. Bladder cancer : to f/u Urology in [place] post discharge. Continue nephrostomy 5. Lymphedema/LE edema: chronic. Previously started on Lasix but developed worsening ROWAN and have been held. DISPOSITION: Likely Rehab placemen VS,Fishbone, I+O VS, Fishbone, I+O Laboratory Tests 04/11/19 05:32 Vital Signs Date Time Temp Pulse Resp B/P (MAP) Pulse Ox O2 Delivery O2 Flow Rate FiO2 04/11/19 10:00 98.8 95 20 125/56 (79) 98 Room Air I&O- Last 24 Hours up to 6 AM 04/11/19 06:00 Intake Total 2000 ml Output Total 940 ml Balance 1060 ml GME ATTESTATION GME ATTESTATION My faculty preceptor for this patient encounter was physically present during the encounter and was fully available. All aspects of the patient interview, examination, medical decision making process, and medical care plan development were reviewed and approved by the faculty preceptor. The faculty preceptor is aware and concurs with the plan as stated in the body of this note and will attest to such by his/her cosignature. ATTENDING NOTE Patient was seen and examined by me this morning with the residents. Agree with the above assessment and plan SANDEEP LOPES MD Apr 11, 2019 12:16
[2019-04-11 14:00] VITALS: BP 130/61
[2019-04-11 18:00] VITALS: BP 129/49
[2019-04-11 22:00] VITALS: BP 128/51
[2019-04-12] VITALS (7 sets, daily range): BP systolic 118–126; BP diastolic 50–64
[2019-04-12] MEDS: NS 1,000 ML IV SCH (01:42)
[2019-04-12] MEDS: HEPARIN SOD (PORCINE) 5000 UNITS/ML VIAL SC SCH ×3 (05:14→21:04)
[2019-04-12] MEDS: amLODIPine 5 MG TAB PO SCH (09:54)
[2019-04-12] MEDS: CYANOCOBALAMIN 500 MCG TAB PO SCH (09:55)
[2019-04-12] MEDS: TAMSULOSIN 0.4 MG CAP PO SCH (09:55)
--- NOTE | 2019-04-12 13:44 | IPNPDOC ---
Text Note Date of Service The patient was seen on 04/12/19. NOTE Patient reported feeling fine today. No New complaints. Nephrostomy tube is draining well PHYSICAL EXAMINATION: VITAL SIGNS: Please see below. General: No acute distress, Alert, morbidly obese Eyes: Normal sclera, EOMI, CATHIE HENT: Atraumatic Cardiovascular: Normal rate, normal rhythm. Pulmonary: Clear to auscultation b/l, no wheezing GI: Soft, nontender, obese Skin: Warm and dry, 3+ b/l leg edema pitting and nonpitting both Neuro: CN grossly intact. No focal deficits. LABORATORY DATA, IMAGING STUDIES, MICROBIOLOGY: Please see below. ASSESSMENT AND PLAN: 1. ROWAN on CKD: Today 1.9 . Cr labile but stable. Was elevated prior to last admission due to obstruction but had improved post nephrostomy tube placement due to bladder mass. Continue to monitor the nephrostomy output. Input output monitoring. Avoid any nephrotoxic drugs. 2. Weakness/deconditioning : ambulation has become increasingly difficult. c/w PT eval and treatment. likely will need Rehab. 3. Elevated troponin: Denies any chest pain. Troponins have had a flat trend. No EKG changes. Related to chronic kidney disease. Continue following the echo. 4. Bladder cancer : to f/u Urology in [place] post discharge. Continue nephrostomy 5.LE edema: chronic. Previously started on Lasix but developed worsening ROWAN and have been held. Will reevaluate for restartring again tommrow. DISPOSITION: Likely Rehab placement VS,Fishbone, I+O VS, Fishbone, I+O Vital Signs Date Time Temp Pulse Resp B/P (MAP) Pulse Ox O2 Delivery O2 Flow Rate FiO2 04/12/19 10:00 98.3 94 20 118/60 (79) 96 Room Air I&O- Last 24 Hours up to 6 AM 04/12/19 06:00 Intake Total 3935 ml Output Total 875 ml Balance 3060 ml SANDEEP LOPES MD Apr 12, 2019 13:43
[2019-04-13 02:00] VITALS: BP 121/60
[2019-04-13 06:00] VITALS: BP 121/67
[2019-04-13] MEDS: HEPARIN SOD (PORCINE) 5000 UNITS/ML VIAL SC SCH ×3 (06:01→21:23)
[2019-04-13 06:05] LABS: HEMATOCRIT 25.3 % (36.0-47.0); HEMOGLOBIN 7.9 g/dl (12.0-15.5); MEAN CORPUSCULAR HEMOGLOBIN 31.2 pg (27.0-33.0); MEAN CORPUSCULAR HGB CONC 31.2 g/dl (32.0-36.5); PLATELET COUNT, AUTOMATED 250 10^3/uL (150-450); RED BLOOD COUNT 2.53 10^6/uL (4.00-5.40); WHITE BLOOD COUNT 11.1 10^3/uL (4.0-10.0)
[2019-04-13 06:25] LABS: CALCIUM LEVEL 7.9 MG/DL (8.8-10.2); CREATININE FOR GFR 1.32 MG/DL (0.55-1.30); GLOMERULAR FILTRATION RATE 41.9 (>39); POTASSIUM SERUM 3.5 MEQ/L (3.5-5.1)
[2019-04-13 06:55] LABS: ANISOCYTOSIS 1+; EOSINOPHILS 1 % (0-3); LYMPHOCYTES 16 % (16-44); METAMYELOCYTES 5 % (0-0); MONOCYTES 6 % (0-5); MYELOCYTES 4 % (0-0); NEUTROPHILS 67 % (28-66); PLATELET ESTIMATE NORMAL (NORMAL)
--- NOTE | 2019-04-13 08:59 | IPNPDOC ---
Text Note Date of Service The patient was seen on 04/13/19. NOTE Patient reported feeling fine today. No New complaints. Nephrostomy tube is draining well PHYSICAL EXAMINATION: VITAL SIGNS: Please see below. General: No acute distress, Alert, morbidly obese Eyes: Normal sclera, EOMI, CATHIE HENT: Atraumatic Cardiovascular: Normal rate, normal rhythm. Pulmonary: Clear to auscultation b/l, no wheezing GI: Soft, nontender, obese Skin: Warm and dry, 3+ b/l leg edema pitting and nonpitting both Neuro: CN grossly intact. No focal deficits. LABORATORY DATA, IMAGING STUDIES, MICROBIOLOGY: Please see below. ASSESSMENT AND PLAN: 1. ROWAN on CKD: Today 1.30 . Cr labile but stable. Was elevated prior to last admission due to obstruction but had improved post nephrostomy tube placement due to bladder mass. Continue to monitor the nephrostomy output. Input output monitoring. Avoid any nephrotoxic drugs. 2. Weakness/deconditioning : ambulation has become increasingly difficult. c/w PT eval and treatment. likely will need Rehab. 3. Elevated troponin: Denies any chest pain. Troponins have had a flat trend. No EKG changes. Related to chronic kidney disease. Continue following the echo. 4. Bladder cancer : to f/u Urology in [place] post discharge. Continue nephrostomy 5.LE edema: chronic. Previously started on Lasix but developed worsening ROWAN and was held. Will restart again today. DISPOSITION: Likely Rehab placement VS,Fishbone, I+O VS, Fishbone, I+O Laboratory Tests 04/13/19 05:53 Vital Signs Date Time Temp Pulse Resp B/P (MAP) Pulse Ox O2 Delivery O2 Flow Rate FiO2 04/13/19 06:00 97.6 107 18 121/67 (85) 97 04/12/19 22:00 Room Air I&O- Last 24 Hours up to 6 AM 04/13/19 06:00 Intake Total 2302 ml Output Total 1350 ml Balance 952 ml GME ATTESTATION GME ATTESTATION My faculty preceptor for this patient encounter was physically present during the encounter and was fully available. All aspects of the patient interview, examination, medical decision making process, and medical care plan development were reviewed and approved by the faculty preceptor. The faculty preceptor is aware and concurs with the plan as stated in the body of this note and will attest to such by his/her cosignature. ATTENDING NOTE Patient was seen and examined by me this morning with the residents. Agree with the above assessment and plan SANDEEP LOPES MD Apr 13, 2019 08:59
[2019-04-13 10:00] VITALS: BP 119/57
[2019-04-13] MEDS: TAMSULOSIN 0.4 MG CAP PO SCH (10:06)
[2019-04-13] MEDS: FUROSEMIDE 20 MG TAB PO SCH ×2 (10:06→17:40)
[2019-04-13] MEDS: CYANOCOBALAMIN 500 MCG TAB PO SCH (10:07)
[2019-04-13] MEDS: amLODIPine 5 MG TAB PO SCH (10:07)
[2019-04-13] MEDS: ACETAMINOPHEN TAB 650MG DOSE (2X325MG) PO PRN (10:53)
[2019-04-13 14:00] VITALS: BP 96/58
--- NOTE | 2019-04-13 15:24 | IPN ---
DATE: 04/06/2019 I was called back to see Trish Siddiqui. Chart is reviewed. 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 She has had a recurrent acute kidney injury on this admission. Creatinine has up trended from 1.5 up to 2.0 and nephrology was called back to see her. The patient was seen and examined this morning at the bedside. She states she feels well. She reports that her lymphedema is much better than usual and that she thinks that her legs have decreased in size. She also notes decreased urine from her nephrostomy the past couple of days. Vital signs: Temperature 98.0, pulse 61, respiratory rate 22, blood pressure 112/60, saturating 90% on room air. Intake yesterday was 2.5 liters. Urine output yesterday was 900 mL, 400 of which was from left nephrostomy and 500 was from right nephrostomy, net positive 1.6 liters. General: The patient is seen lying in bed, elderly female, morbidly obese, awake, alert and cooperative and in no acute distress. Extraocular muscles are intact. Tongue is moist. Neck is supple. Jugular veins are not elevated. Cardiac: S1, S2, regular rate and rhythm. Palpable radial pulse. Lungs: Show symmetric air entry. No crackle or rales. Abdomen is soft and nontender. There are bowel sounds. She has bilateral nephrostomies with urine in the bag. Legs show significant bulky legs was non pitting edema consistent with lymphedema. Neurologic: She is awake, alert, oriented times three. No focal deficits. Psychiatric: Appropriate mood and effect. LABS: Sodium 138, potassium 4.3, bicarbonate 25, BUN 40, creatinine 2.0, magnesium 2.4, hemoglobin 8.3, platelets 369, BNP 1300. IMAGING STUDIES Venous duplex shows no DVT. CT of the abdomen and pelvis on April 04 showed bilateral percutaneous nephroureterostomy catheters in place and an empty urinary bladder lumen with a large bladder mass. CT CHEST April 03. No infiltrates or effusions. I do not see any contrast studies> INPATIENT MEDICATIONS: I have discontinued her Lasix. PROBLEMS: 1. Acute kidney injury (ROWAN) on CKD stage III in this patient with recent recurrent acute kidney injury and obstructive uropathy status post bilateral percutaneous nephrostomies. Most recent noncontrast CT scan on April 04 reviewed and showed appropriate nephrostomy tube placement. The patient has been having decreased urine output bilaterally from both of the tubes. I also note she had an echocardiogram done on April 03 that showed normal systolic and diastolic function and more importantly showed a normal inferior vena cava size. The patient has chronic lymphedema. She is on diuretic therapy. I am going to hold her Lasix in view of worsening renal function. Her chest is clear. She is on room air. And we will see if diuretic holiday allows for any improvement in renal function. Otherwise she is not receiving any nephrotoxic medications. I will also get a repeat renal ultrasound just to ensure that her nephrostomies remain in good position. 2. Lymphedema. This is chronic and diuretic may worsen her renal function without making much of a difference on her bulky legs. Her echocardiogram showed a normal inferior vena cava diameter which suggests that her CVP is normal. We will hold diuretic and watch renal function trend. She can receive it on a prn basis. MTDD
[2019-04-13 18:00] VITALS: BP 100/57
[2019-04-13 22:00] VITALS: BP 109/57
[2019-04-14 02:00] VITALS: BP 103/61
[2019-04-14] MEDS: HEPARIN SOD (PORCINE) 5000 UNITS/ML VIAL SC SCH ×3 (05:35→20:36)
[2019-04-14 06:00] VITALS: BP 113/60
[2019-04-14 06:46] LABS: HEMATOCRIT 26.9 % (36.0-47.0); HEMOGLOBIN 8.2 g/dl (12.0-15.5); MEAN CORPUSCULAR HEMOGLOBIN 30.7 pg (27.0-33.0); MEAN CORPUSCULAR HGB CONC 30.5 g/dl (32.0-36.5); MEAN CORPUSCULAR VOLUME 100.7 fl (80.0-96.0); PLATELET COUNT, AUTOMATED 259 10^3/uL (150-450); RED BLOOD COUNT 2.67 10^6/uL (4.00-5.40); WHITE BLOOD COUNT 11.4 10^3/uL (4.0-10.0)
[2019-04-14 07:06] LABS: CALCIUM LEVEL 7.9 MG/DL (8.8-10.2); CREATININE FOR GFR 1.35 MG/DL (0.55-1.30); GLOMERULAR FILTRATION RATE 40.8 (>39); POTASSIUM SERUM 3.6 MEQ/L (3.5-5.1)
[2019-04-14 07:13] LABS: EOSINOPHILS 3 % (0-3); LYMPHOCYTES 15 % (16-44); METAMYELOCYTES 1 % (0-0); MONOCYTES 3 % (0-5); MYELOCYTES 4 % (0-0); NEUTROPHILS 74 % (28-66)
[2019-04-14 07:14] LABS: PLATELET ESTIMATE NORMAL (NORMAL); POLYCHROMASIA 1+
[2019-04-14 07:16] LABS: GIANT PLATELETS 1+
[2019-04-14 09:11] VITALS: BP 104/56
[2019-04-14] MEDS: ACETAMINOPHEN TAB 650MG DOSE (2X325MG) PO PRN (10:20)
[2019-04-14] MEDS: CYANOCOBALAMIN 500 MCG TAB PO SCH (10:21)
[2019-04-14] MEDS: FUROSEMIDE 20 MG TAB PO SCH ×2 (10:22→16:30)
[2019-04-14] MEDS: TAMSULOSIN 0.4 MG CAP PO SCH (10:22)
[2019-04-14] MEDS: amLODIPine 5 MG TAB PO SCH (10:24)
--- NOTE | 2019-04-14 11:33 | IPNPDOC ---
Text Note Date of Service The patient was seen on 04/14/19. NOTE Patient reported feeling fine today. No New complaints. Nephrostomy tube is draining well PHYSICAL EXAMINATION: VITAL SIGNS: Please see below. General: No acute distress, Alert, morbidly obese Eyes: Normal sclera, EOMI, CATHIE HENT: Atraumatic Cardiovascular: Normal rate, normal rhythm. Pulmonary: Clear to auscultation b/l, no wheezing GI: Soft, nontender, obese Skin: Warm and dry, 3+ b/l leg edema pitting and nonpitting both Neuro: CN grossly intact. No focal deficits. LABORATORY DATA, IMAGING STUDIES, MICROBIOLOGY: Please see below. ASSESSMENT AND PLAN: 1. ROWAN on CKD: Today 1.30 . Cr stable. Was elevated prior to last admission due to obstruction but had improved post nephrostomy tube placement due to bladder mass. Continue to monitor the nephrostomy output. Input output monitoring. Avoid any nephrotoxic drugs. 2. Weakness/deconditioning : ambulation has become increasingly difficult. c/w PT eval and treatment. likely will need Rehab. 3. Elevated troponin: Denies any chest pain. Troponins have had a flat trend. No EKG changes. Related to chronic kidney disease. Continue following the echo. 4. Bladder cancer : to f/u Urology in [place] post discharge. Continue nephrostomy 5.LE edema: chronic. restarted lasix again on 04/13/19. DISPOSITION: Likely Rehab placement VS,Fishbone, I+O VS, Fishbone, I+O Laboratory Tests 04/14/19 06:34 Vital Signs Date Time Temp Pulse Resp B/P (MAP) Pulse Ox O2 Delivery O2 Flow Rate FiO2 04/14/19 10:24 97 104/56 04/14/19 09:11 97.8 18 96 Room Air I&O- Last 24 Hours up to 6 AM 04/14/19 06:00 Intake Total 1475 ml Output Total 750 ml Balance 725 ml SANDEEP LOPES MD Apr 14, 2019 11:33
[2019-04-14] MEDS ORDERED: PERCOCET 5MG/325MG TAB PO ONE (13:30)
[2019-04-14 14:00] VITALS: BP 107/54
[2019-04-14 18:00] VITALS: BP 106/54
[2019-04-14 22:00] VITALS: BP 109/53
[2019-04-15 02:00] VITALS: BP 109/53
[2019-04-15] MEDS: HEPARIN SOD (PORCINE) 5000 UNITS/ML VIAL SC SCH ×3 (05:42→21:29)
[2019-04-15 06:00] VITALS: BP 130/71
[2019-04-15 07:41] LABS: HEMATOCRIT 25.3 % (36.0-47.0); HEMOGLOBIN 7.9 g/dl (12.0-15.5); MEAN CORPUSCULAR HEMOGLOBIN 31.2 pg (27.0-33.0); MEAN CORPUSCULAR HGB CONC 31.2 g/dl (32.0-36.5); PLATELET COUNT, AUTOMATED 255 10^3/uL (150-450); RED BLOOD COUNT 2.53 10^6/uL (4.00-5.40); WHITE BLOOD COUNT 11.7 10^3/uL (4.0-10.0)
--- NOTE | 2019-04-15 08:07 | IPNPDOC ---
Text Note Date of Service The patient was seen on 04/15/19. NOTE Patient reported feeling fine today. No New complaints. Nephrostomy tube is draining well PHYSICAL EXAMINATION: VITAL SIGNS: Please see below. General: No acute distress, Alert, morbidly obese Eyes: Normal sclera, EOMI, CATHIE HENT: Atraumatic Cardiovascular: Normal rate, normal rhythm. Pulmonary: Clear to auscultation b/l, no wheezing GI: Soft, nontender, obese Skin: Warm and dry, 3+ b/l leg edema pitting and nonpitting both Neuro: CN grossly intact. No focal deficits. LABORATORY DATA, IMAGING STUDIES, MICROBIOLOGY: Please see below. 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 She was discharged home, but as per her, she felt very weak and that is the reason came back to the hospital within 2 days. She has had a recurrent acute kidney injury on this admission. Creatinine initially trended up, but after IV resuscitation. It is ordered. Nephrology also has seen her. She reports that her lymphedema is much better than usual and that she thinks that her legs have decreased in size. Her output is good. There is no signs of infections. She needs to follow up with the outpatient urology clinic in [place] for surgical intervention of her high grade carcinoma of the bladder. Currently, she is awaiting placement. 1. ROWAN on CKD: Resolved Cr stable. Was elevated prior to last admission due to obstruction but had improved post nephrostomy tube placement due to bladder mass. Continue to monitor the nephrostomy output. Input output monitoring. Avoid any nephrotoxic drugs. 2. Weakness/deconditioning : ambulation has become increasingly difficult. c/w PT eval and treatment. likely will need Rehab. 3. Elevated troponin: Denies any chest pain. Troponins have had a flat trend. No EKG changes. Related to chronic kidney disease. Continue following the echo. 4. Bladder cancer : to f/u Urology in [place] post discharge. Continue nephrostomy 5.LE edema: chronic. restarted lasix again on 04/13/19. DISPOSITION: Likely Rehab placement VS,Sandra, I+O VS, Fishbone, I+O Laboratory Tests 04/15/19 07:26 Vital Signs Date Time Temp Pulse Resp B/P (MAP) Pulse Ox O2 Delivery O2 Flow Rate FiO2 04/15/19 06:00 98.7 92 20 130/71 (90) 97 Room Air I&O- Last 24 Hours up to 6 AM 04/15/19 06:00 Intake Total 760 ml Output Total 935 ml Balance -175 ml SANDEEP LOPES MD Apr 15, 2019 08:04
[2019-04-15 08:13] LABS: CALCIUM LEVEL 8.1 MG/DL (8.8-10.2); CREATININE FOR GFR 1.28 MG/DL (0.55-1.30); GLOMERULAR FILTRATION RATE 43.4 (>39); POTASSIUM SERUM 3.8 MEQ/L (3.5-5.1)
[2019-04-15 08:19] LABS: ATYPICAL LYMPH 2 % (0-5); BASOPHILS 1 % (0-1); LYMPHOCYTES 21 % (16-44); METAMYELOCYTES 1 % (0-0); MONOCYTES 2 % (0-5); MYELOCYTES 3 % (0-0); NEUTROPHILS 69 % (28-66)
[2019-04-15 08:20] LABS: ANISOCYTOSIS 1+; HYPOCHROMASIA 1+; PLATELET ESTIMATE NORMAL (NORMAL)
[2019-04-15] MEDS: CYANOCOBALAMIN 500 MCG TAB PO SCH (09:57)
[2019-04-15] MEDS: TAMSULOSIN 0.4 MG CAP PO SCH (09:57)
[2019-04-15] MEDS: FUROSEMIDE 20 MG TAB PO SCH ×2 (09:58→17:21)
[2019-04-15] MEDS: amLODIPine 5 MG TAB PO SCH (09:58)
[2019-04-15 10:00] VITALS: BP 131/72
[2019-04-15] MEDS: ACETAMINOPHEN TAB 650MG DOSE (2X325MG) PO PRN (12:12)
[2019-04-15 14:00] VITALS: BP 133/72
[2019-04-15] MEDS: cefTRIAXone SOD 1 GM in D5W MINI-BAG PLUS 50 ML IV SCH (16:16)
[2019-04-15 18:00] VITALS: BP 149/75
[2019-04-15 22:00] VITALS: BP 124/64
[2019-04-16 04:00] VITALS: BP 132/59
[2019-04-16] MEDS: HEPARIN SOD (PORCINE) 5000 UNITS/ML VIAL SC SCH ×3 (05:05→21:38)
[2019-04-16] MEDS: ACETAMINOPHEN TAB 650MG DOSE (2X325MG) PO PRN ×3 (05:06→21:37)
[2019-04-16 06:00] VITALS: BP 112/56
[2019-04-16 06:06] LABS: HEMATOCRIT 23.6 % (36.0-47.0); HEMOGLOBIN 7.5 g/dl (12.0-15.5); MEAN CORPUSCULAR HEMOGLOBIN 31.4 pg (27.0-33.0); MEAN CORPUSCULAR HGB CONC 31.8 g/dl (32.0-36.5); MEAN CORPUSCULAR VOLUME 98.7 fl (80.0-96.0); PLATELET COUNT, AUTOMATED 263 10^3/uL (150-450); RED BLOOD COUNT 2.39 10^6/uL (4.00-5.40)
[2019-04-16 06:27] LABS: CALCIUM LEVEL 8.3 MG/DL (8.8-10.2); CREATININE FOR GFR 1.24 MG/DL (0.55-1.30); POTASSIUM SERUM 3.7 MEQ/L (3.5-5.1)
[2019-04-16 06:55] LABS: BASOPHILS 2 % (0-1); LYMPHOCYTES 9 % (16-44); METAMYELOCYTES 1 % (0-0); MONOCYTES 5 % (0-5); MYELOCYTES 3 % (0-0); NEUTROPHILS 80 % (28-66)
[2019-04-16 06:56] LABS: PLATELET ESTIMATE NORMAL (NORMAL)
--- NOTE | 2019-04-16 09:13 | IPNPDOC ---
Text Note Date of Service The patient was seen on 04/16/19. NOTE Patient reported feeling fine today. No New complaints. Nephrostomy tube is draining well PHYSICAL EXAMINATION: VITAL SIGNS: Please see below. General: No acute distress, Alert, morbidly obese Eyes: Normal sclera, EOMI, CATHIE HENT: Atraumatic Cardiovascular: Normal rate, normal rhythm. Pulmonary: Clear to auscultation b/l, no wheezing GI: Soft, nontender, obese Skin: Warm and dry, 3+ b/l leg edema pitting and nonpitting both Neuro: CN grossly intact. No focal deficits. LABORATORY DATA, IMAGING STUDIES, MICROBIOLOGY: Please see below. 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 She was discharged home, but as per her, she felt very weak and that is the reason came back to the hospital within 2 days. She has had a recurrent acute kidney injury on this admission. Creatinine initially trended up, but after IV resuscitation. It is ordered. Nephrology also has seen her. She reports that her lymphedema is much better than usual and that she thinks that her legs have decreased in size. Her output is good. There is no signs of infections. She needs to follow up with the outpatient urology clinic in [place] for surgical intervention of her high grade carcinoma of the bladder. Currently, she is awaiting placement. 1. ROWAN on CKD: Resolved . Cr stable. Was elevated prior to last admission due to obstruction but had improved post nephrostomy tube placement due to bladder mass. Continue to monitor the nephrostomy output. Input output monitoring. Avoid any nephrotoxic drugs. 2. Weakness/deconditioning : ambulation has become increasingly difficult. c/w PT eval and treatment. likely will need Rehab. 3. Elevated troponin: Denies any chest pain. Troponins have had a flat trend. No EKG changes. Related to chronic kidney disease. Continue following the echo. 4. Bladder cancer : to f/u Urology in [place] post discharge. Continue nephrostomy 5.LE edema: chronic. restarted lasix again on 04/13/19. 6. UTI: UA with reflex , and rocephin day 2 7. Anemia : ACD most likely, baseline around 7.8. today 7.5. cont monitoring. no active sign of bleeding We have already made an appiontment with [place] [facility] for 04/20/19. DISPOSITION: Likely Rehab placement VS,Fishbone, I+O VS, Fishbone, I+O Laboratory Tests 04/16/19 05:52 Vital Signs Date Time Temp Pulse Resp B/P (MAP) Pulse Ox O2 Delivery O2 Flow Rate FiO2 04/16/19 06:00 98.1 88 18 112/56 (74) 97 Room Air I&O- Last 24 Hours up to 6 AM 04/16/19 06:00 Intake Total 930 ml Output Total 650 ml Balance 280 ml SANDEEP LOPES MD Apr 16, 2019 09:13
[2019-04-16] MEDS: TAMSULOSIN 0.4 MG CAP PO SCH (09:46)
[2019-04-16] MEDS: FUROSEMIDE 20 MG TAB PO SCH ×2 (09:46→17:55)
[2019-04-16] MEDS: CYANOCOBALAMIN 500 MCG TAB PO SCH (09:47)
[2019-04-16] MEDS: amLODIPine 5 MG TAB PO SCH (09:47)
[2019-04-16 10:00] VITALS: BP 110/62
[2019-04-16 14:00] VITALS: BP 127/58
[2019-04-16] MEDS: cefTRIAXone SOD 1 GM in D5W MINI-BAG PLUS 50 ML IV SCH (14:37)
[2019-04-16] MEDS: CIPROFLOXACIN 500 MG TAB PO SCH (17:55)
[2019-04-16 18:00] VITALS: BP 124/57
[2019-04-16 22:00] VITALS: BP 124/58
[2019-04-17 02:00] VITALS: BP 124/57
[2019-04-17] MEDS: CIPROFLOXACIN 500 MG TAB PO SCH ×2 (05:50→17:41)
[2019-04-17] MEDS: HEPARIN SOD (PORCINE) 5000 UNITS/ML VIAL SC SCH ×3 (05:50→21:10)
[2019-04-17 06:00] VITALS: BP 140/63
[2019-04-17 06:43] LABS: BASO # 0.1 10^3/uL (0.0-0.2); BASO % 0.6 % (0.0-1.0); EOS # 0.2 10^3/uL (0.0-0.5); EOS % 1.5 % (0.0-3.0); HEMATOCRIT 24.8 % (36.0-47.0); HEMOGLOBIN 7.7 g/dl (12.0-15.5); LYMPH # 1.4 10^3/uL (1.5-5.0); LYMPH % 11.3 % (24.0-44.0); MEAN CORPUSCULAR HEMOGLOBIN 31.3 pg (27.0-33.0); MEAN CORPUSCULAR VOLUME 100.8 fl (80.0-96.0); MONO # 0.9 10^3/uL (0.0-0.8); MONO % 6.7 % (0.0-5.0); NEUTROPHILS # 9.6 10^3/uL (1.5-8.5); NEUTROPHILS % 75.2 % (36.0-66.0); PLATELET COUNT, AUTOMATED 275 10^3/uL (150-450); RED BLOOD COUNT 2.46 10^6/uL (4.00-5.40); WHITE BLOOD COUNT 12.8 10^3/uL (4.0-10.0)
[2019-04-17 07:04] LABS: CALCIUM LEVEL 8.1 MG/DL (8.8-10.2); CREATININE FOR GFR 1.21 MG/DL (0.55-1.30); GLOMERULAR FILTRATION RATE 46.3 (>39); POTASSIUM SERUM 3.7 MEQ/L (3.5-5.1)
[2019-04-17] MEDS: TAMSULOSIN 0.4 MG CAP PO SCH (09:40)
[2019-04-17] MEDS: CYANOCOBALAMIN 500 MCG TAB PO SCH (09:41)
[2019-04-17] MEDS: FUROSEMIDE 20 MG TAB PO SCH ×2 (09:41→17:41)
[2019-04-17] MEDS: amLODIPine 5 MG TAB PO SCH ×2 (09:44→10:06)
[2019-04-17 10:00] VITALS: BP 131/57
[2019-04-17 12:37] LABS: HEMATOCRIT 24.6 % (36.0-47.0); HEMOGLOBIN 7.7 g/dl (12.0-15.5)
[2019-04-17 14:00] VITALS: BP 138/58
[2019-04-17 18:00] VITALS: BP 134/61
[2019-04-17 18:18] LABS: HEMATOCRIT 29.5 % (36.0-47.0); HEMOGLOBIN 8.1 g/dl (12.0-15.5)
[2019-04-17 22:00] VITALS: BP 123/53
[2019-04-18 02:00] VITALS: BP 119/53
[2019-04-18] MEDS: ACETAMINOPHEN TAB 650MG DOSE (2X325MG) PO PRN ×2 (02:09→13:00)
[2019-04-18] MEDS: HEPARIN SOD (PORCINE) 5000 UNITS/ML VIAL SC SCH ×3 (05:25→21:49)
[2019-04-18] MEDS: CIPROFLOXACIN 500 MG TAB PO SCH ×2 (05:25→17:09)
[2019-04-18 06:00] VITALS: BP 118/54
[2019-04-18 08:14] LABS: CREATININE FOR GFR 1.15 MG/DL (0.55-1.30); GLOMERULAR FILTRATION RATE 49.1 (>39)
[2019-04-18] MEDS: amLODIPine 5 MG TAB PO SCH (08:21)
[2019-04-18] MEDS: CYANOCOBALAMIN 500 MCG TAB PO SCH (08:21)
[2019-04-18] MEDS: FUROSEMIDE 20 MG TAB PO SCH ×2 (08:21→17:10)
[2019-04-18] MEDS: TAMSULOSIN 0.4 MG CAP PO SCH (08:21)
--- NOTE | 2019-04-18 08:59 | IPN ---
DATE: 04/17/2019 The patient has no complaints of dizziness, lightheadedness, shortness of breath, palpitations, chest pain or pressure. The patient's hemoglobin is 7.7. Denies any bright red blood per rectum, melena, black tarry stools. She was heme positive but most likely due to chronic disease secondary to renal failure. The patient is anxious to be discharged hopefully to a rehabilitation facility in [place] where her daughter lives. PHYSICAL EXAMINATION: VITAL SIGNS: Temperature 98.8, pulse 91, respiratory rate 18, blood pressure 140/63, 96% on room air. GENERAL: Awake, alert, oriented to person, place and time. Answering questions appropriately. No icterus or jaundice. Slight pallor. No respiratory distress or use of respiratory accessory muscles. The neck is thick, unable to assess for jugular venous distention (JVD). LUNGS: Clear to auscultation. No wheezing, rales or rhonchi. HEART: S1, S2. Sinus rhythm. ABDOMEN: Obese, soft, nontender, nondistended. EXTREMITIES: Chronic lymphedema, currently bandaged. LABORATORY DATA: White count 12.8, hemoglobin 7.7, hematocrit 24, platelet count 275. Sodium 138, potassium 3.7, chloride 108, bicarbonate 22, BUN 28, creatinine 1.21, glucose of 89. Urine with Gardnerella vaginalis fibromatous and Staphylococcus simulans. ASSESSMENT AND PLAN: This is a 73-year-old morbidly obese female with chronic kidney disease stage III, bladder cancer status post bilateral nephrostomy, represented from home with acute kidney injury, status post IV fluids. Due to lymphedema, IV fluids were discontinued and the patient has been seen by nephrology with normal creatinine. 1. Acute on chronic kidney disease stage III, back to baseline. No complaints of shortness of breath. Status post nephrostomy tubes due to bladder mass. Outpatient urology followup as previously scheduled. 2. Bladder cancer. Urology followup in [place]. 3. Deconditioning. Discharge to rehabilitation facility on Thursday. Patient and family services (PFS) consulted. 4. Urinary tract infection (UTI). The patient completed Rocephin, currently on Cipro. 5. Anemia of chronic disease. Monitor hemoglobin and hematocrit. The patient was heme positive, refusing blood transfusion at this time. Asymptomatic. 6. Morbid obesity. Body Mass Index (BMI) is 50.6, this is complicating her care. GALA
[2019-04-18 09:00] LABS: HEMATOCRIT 24.2 % (36.0-47.0); HEMOGLOBIN 7.4 g/dl (12.0-15.5); MEAN CORPUSCULAR HEMOGLOBIN 30.8 pg (27.0-33.0); MEAN CORPUSCULAR HGB CONC 30.6 g/dl (32.0-36.5); MEAN CORPUSCULAR VOLUME 100.8 fl (80.0-96.0); PLATELET COUNT, AUTOMATED 284 10^3/uL (150-450); WHITE BLOOD COUNT 11.6 10^3/uL (4.0-10.0)
[2019-04-18] MEDS ORDERED: CIPR-249 PO (09:25)
[2019-04-18 10:24] LABS: ANISOCYTOSIS 1+; EOSINOPHILS 2 % (0-3); HYPOCHROMASIA 1+; LYMPHOCYTES 20 % (16-44); MONOCYTES 2 % (0-5); MYELOCYTES 2 % (0-0); NEUTROPHILS 71 % (28-66); PLATELET ESTIMATE NORMAL (NORMAL)
[2019-04-18 14:00] VITALS: BP 113/64
[2019-04-18 18:04] LABS: HEMATOCRIT 26.7 % (36.0-47.0); HEMOGLOBIN 8.3 g/dl (12.0-15.5)
[2019-04-18 22:00] VITALS: BP 119/48
[2019-04-19] VITALS (8 sets, daily range): BP systolic 94–138; BP diastolic 48–71
[2019-04-19] MEDS: CIPROFLOXACIN 500 MG TAB PO SCH (06:06)
[2019-04-19] MEDS: HEPARIN SOD (PORCINE) 5000 UNITS/ML VIAL SC SCH (06:07)
[2019-04-19 06:40] LABS: HEMATOCRIT 24.3 % (36.0-47.0); HEMOGLOBIN 7.4 g/dl (12.0-15.5); MEAN CORPUSCULAR HEMOGLOBIN 30.8 pg (27.0-33.0); MEAN CORPUSCULAR HGB CONC 30.5 g/dl (32.0-36.5); MEAN CORPUSCULAR VOLUME 101.3 fl (80.0-96.0); PLATELET COUNT, AUTOMATED 294 10^3/uL (150-450); WHITE BLOOD COUNT 11.9 10^3/uL (4.0-10.0)
[2019-04-19 06:56] LABS: CALCIUM LEVEL 8.2 MG/DL (8.8-10.2); CREATININE FOR GFR 1.23 MG/DL (0.55-1.30); GLOMERULAR FILTRATION RATE 45.4 (>39); POTASSIUM SERUM 4.1 MEQ/L (3.5-5.1)
[2019-04-19 07:06] LABS: EOSINOPHILS 2 % (0-3); LYMPHOCYTES 15 % (16-44); MONOCYTES 6 % (0-5); NEUTROPHILS 77 % (28-66); PLATELET ESTIMATE NORMAL (NORMAL)
[2019-04-19] MEDS: TAMSULOSIN 0.4 MG CAP PO SCH (07:57)
[2019-04-19] MEDS: CYANOCOBALAMIN 500 MCG TAB PO SCH (07:58)
[2019-04-19] MEDS: FUROSEMIDE 20 MG TAB PO SCH ×2 (07:58→17:07)
[2019-04-19] MEDS: amLODIPine 5 MG TAB PO SCH (07:59)
--- NOTE | 2019-04-19 08:46 | IPN ---
DATE OF SERVICE: 04/18/2019 The patient is anxious to be discharged, but no rehab facility has accepted the patient as yet. At this time, the patient is preferring to go to [place] [facility] which is closer to her daughter. No issues overnight. The patient is afebrile. No complaints of dizziness, lightheadedness. She had episodes of anemia, but did not want to be transfused. Hemoccult stool on 04/11 was positive. The patient this morning remains anemic, again refused transfusion. She currently denies any chest pain, pressure, tightness, shortness of breath, palpitations, lightheadedness or dizziness. Temperature 97.6, pulse 94, respiratory rate 18, blood pressure 113/64, 99% on room air. Generally, slight pallor. No icterus or jaundice. No use of respiratory accessory muscles. Face is symmetric. Lungs are clear to auscultation, no wheezing, rales or rhonchi. Heart S1, S2 sinus rhythm. Abdomen is soft, nontender, nondistended. Positive bowel sounds. Extremities no cyanosis, clubbing. The patient has a chronic lower extremity wound that is currently wrapped in an Oumar bandage. Laboratory data has been reviewed. Hemoglobin remains at 7.4. The patient currently does not want any blood transfusion. Hemoglobin is 7.4, hematocrit 24.2, white count 11.6, platelet count of 284. Sodium 141, potassium 4, chloride 110, bicarb 21, BUN 27, creatinine 1.15, glucose of 87. ASSESSMENT/PLAN: This is a 73-year-old female with known history of chronic lymphedema, chronic kidney disease stage III, bladder cancer, status post bilateral nephrostomy tubes, who presented from home with acute kidney injury with complaints of generalized weakness and lethargy, having difficulty getting up from her couch. The patient found blood tinged drainage from her nephrostomy tube and complained of left ankle pain and difficulty walking. Nephrology was consulted and the patient is currently back to baseline creatinine. Renal ultrasound which was repeated on 04/08/2019 shows negative renal ultrasound with limited visualization of the kidneys. Bladder is not seen. Renal sinus lipomatosis noted bilaterally. ASSESSMENT/PLAN: This is a 73-year-old female with known history of urothelial cell carcinoma of the bladder status post bilateral nephrostomy tube admitted for acute kidney injury on chronic kidney disease with complaints of weakness and deconditioning. The patient's discharge creatinine was previously 1.8 and was found to be 2.94 on admission. Most likely secondary to dehydration. Repeat ultrasound shows nephrostomy tubes in place with no other issues. The patient received IV fluids and currently at baseline creatinine. 1. Anemia. Most likely multifactorial due to blood loss as well as chronic kidney disease. The patient required transfusions and Venofer during the last hospitalization. The patient is currently refusing RBC transfusion at this time as she is not short of breath or weak or fatigued. 2. Bladder CA status post nephrostomy tube placement. The patient is to followup as an outpatient with urology services in [place]. 3. Elevated troponin initially, currently stable. Secondary to demand mediated ischemia. 4. Chronic lymphedema with complaints of pain. Doppler ultrasound were negative. Currently Oumar bandaged. DISPOSITION: The patient is awaiting transfer to a rehab facility. [facility]
[2019-04-19] MEDS ORDERED: diphenhydrAMINE 25 MG CAP PO ONE (12:00)
[2019-04-19] MEDS ORDERED: ACETAMINOPHEN TAB 650MG DOSE (2X325MG) PO ONE (13:00)
--- NOTE | 2019-04-19 14:39 | IPNPDOC ---
Date Seen The patient was seen on 04/19/19. Progress Note SUBJECTIVE: Patient has no complaints today. Does not note any visible blood in her stool but is in her nephrostomy. FOBT was also positive however. Hb 8.3->7.4 this morning. To get 2 units pRBC. OBJECTIVE PHYSICAL EXAMINATION: VITAL SIGNS: Please see below. General: No acute distress, Alert, morbidly obese Eyes: Normal sclera, EOMI, CATHIE HENT: Atraumatic Cardiovascular: Normal rate, normal rhythm. Pulmonary: Clear to auscultation b/l, no wheezing GI: Soft, nontender, obese Skin: Warm and dry Neuro: CN grossly intact. No focal deficits. LABORATORY DATA, IMAGING STUDIES, MICROBIOLOGY: Please see below. DVT prophylaxis ordered?: HSQ held due to anemia. SCD. ASSESSMENT AND PLAN: 1. Anemia - Multifactorial including from bladder mass vs. GI vs. kidney disease. However, most likely from bladder as persistent hematuria is noted from nephrostomy. - To get 2 units pRBC today. Appeared to stabelize around 7-8 and asymptomatic. Can likely perform colonoscopy as outpatient but does not suspect GI bleed as a significant contributor to anemia at this time. 2. Bladder cancer s/p nephrostomy tube placement - F/u urology in [place]. - Appt tomorrow. 3. CKD - Was seen by nephro previously. Worsened ROWAN after getting diuresis. Has i mproved. 4. Weakness/deconditioning - ambulation has become increasingly difficult. - c/w PT eval and treatment. - likely will need Rehab. 5. Lymphedema/LE edema - chronic. - c/w Low dose PO lasix BID. DISPOSITION: Rehab placement. VS, I&O, 24H, Fishbone Vital Signs/I&O Vital Signs Date Time Temp Pulse Resp B/P (MAP) Pulse Ox O2 Delivery O2 Flow Rate FiO2 04/19/19 06:00 98.3 90 20 118/55 (76) 97 Room Air I&O- Last 24 Hours up to 6 AM 04/19/19 06:00 Intake Total 2095 ml Output Total 875 ml Balance 1220 ml Laboratory Data 24H LABS Laboratory Tests 2 04/19/19 06:20: Immature Granulocyte % (Auto) , Nucleated Red Blood Cells % (auto) 0.0, Neutrophils 77H, Lymphocytes (Manual) 15L, Monocytes (Manual) 6H, Eosinophils (Manual) 2, Red Blood Cell Morphology NORMAL, Platelet Estimate NORMAL, Anion Gap 6L, Glomerular Filtration Rate 45.4, Calcium Level 8.2L CBC/BMP Laboratory Tests 04/18/19 17:02 04/19/19 06:20 Microbiology Microbiology 04/17/19 Urine Culture - Final, Complete 04/11/19 Stool Occult Blood (CELSO) - Final, Complete DAVID MAYFIELD MD Apr 19, 2019 14:39
[2019-04-20] VITALS: BP 96/46
[2019-04-20 01:01] VITALS: BP 95/49
[2019-04-20 02:01] VITALS: BP 98/49
[2019-04-20] MEDS: ACETAMINOPHEN TAB 650MG DOSE (2X325MG) PO PRN ×3 (02:17→18:01)
[2019-04-20] MEDS ORDERED: NS 250 ML IV ONE (02:30)
[2019-04-20 03:39] VITALS: BP 94/48
[2019-04-20] MEDS ORDERED: NS 500 ML IV ONE (03:45)
[2019-04-20 06:00] VITALS: BP 102/50
[2019-04-20] MEDS: FUROSEMIDE 20 MG TAB PO SCH ×2 (07:44→18:01)
[2019-04-20] MEDS: amLODIPine 5 MG TAB PO SCH (07:45)
[2019-04-20] MEDS: CYANOCOBALAMIN 500 MCG TAB PO SCH (08:24)
[2019-04-20] MEDS: TAMSULOSIN 0.4 MG CAP PO SCH (08:25)
[2019-04-20 08:33] LABS: HEMATOCRIT 27.2 % (36.0-47.0); HEMOGLOBIN 8.6 g/dl (12.0-15.5); MEAN CORPUSCULAR HGB CONC 31.6 g/dl (32.0-36.5); MEAN CORPUSCULAR VOLUME 98.2 fl (80.0-96.0); PLATELET COUNT, AUTOMATED 287 10^3/uL (150-450); RED BLOOD COUNT 2.77 10^6/uL (4.00-5.40); WHITE BLOOD COUNT 10.6 10^3/uL (4.0-10.0)
[2019-04-20 09:01] LABS: CALCIUM LEVEL 8.1 MG/DL (8.8-10.2); CREATININE FOR GFR 1.15 MG/DL (0.55-1.30); GLOMERULAR FILTRATION RATE 49.1 (>39); POTASSIUM SERUM 3.9 MEQ/L (3.5-5.1)
[2019-04-20 22:00] VITALS: BP 104/51
[2019-04-21] MEDS: ACETAMINOPHEN TAB 650MG DOSE (2X325MG) PO PRN (02:37)
[2019-04-21 06:00] VITALS: BP 136/67
[2019-04-21 06:20] LABS: HEMATOCRIT 28.8 % (36.0-47.0); HEMOGLOBIN 8.7 g/dl (12.0-15.5); MEAN CORPUSCULAR HGB CONC 30.2 g/dl (32.0-36.5); MEAN CORPUSCULAR VOLUME 99.3 fl (80.0-96.0); PLATELET COUNT, AUTOMATED 289 10^3/uL (150-450); WHITE BLOOD COUNT 10.5 10^3/uL (4.0-10.0)
[2019-04-21] MEDS: TAMSULOSIN 0.4 MG CAP PO SCH (07:30)
[2019-04-21] MEDS: CYANOCOBALAMIN 500 MCG TAB PO SCH (07:30)
[2019-04-21 07:32] VITALS: BP 121/56
[2019-04-21] MEDS: amLODIPine 5 MG TAB PO SCH (07:32)
[2019-04-21] MEDS: FUROSEMIDE 20 MG TAB PO SCH ×2 (07:32→17:22)
[2019-04-21 07:33] VITALS: BP 121/56
--- NOTE | 2019-04-21 09:50 | IPNPDOC ---
Date Seen The patient was seen on 04/20/19. Progress Note SUBJECTIVE: Patient reportedly was SOB last night after getting 2 units pRBC. Received lasix with improvement but subsequently became hypotensive requiring IVF. Had stabelized this morning. Hb 8.6 this morning. OBJECTIVE PHYSICAL EXAMINATION: VITAL SIGNS: Please see below. General: No acute distress, Alert, morbidly obese Eyes: Normal sclera, EOMI, CATHIE HENT: Atraumatic Cardiovascular: Normal rate, normal rhythm. Pulmonary: Clear to auscultation b/l, no wheezing GI: Soft, nontender, obese Skin: Warm and dry Neuro: CN grossly intact. No focal deficits. LABORATORY DATA, IMAGING STUDIES, MICROBIOLOGY: Please see below. DVT prophylaxis ordered?: HSQ held due to anemia. SCD. ASSESSMENT AND PLAN: 1. Anemia - Multifactorial including from bladder mass vs. GI vs. kidney disease. However, most significant contributing factor likely from bladder as persistent hematuria is noted from nephrostomy. - s/p 2 units pRBC 04/19. Appeared to stabelize around 7-8 and asymptomatic. Can likely perform colonoscopy as outpatient but does not suspect GI bleed as a significant contributor to anemia at this time. 2. Bladder cancer s/p nephrostomy tube placement - F/u urology in [place]. - Appt today. 3. ROWAN - Was seen by nephro previously. Worsened ROWAN after getting diuresis. Had improved. 4. Weakness/deconditioning - ambulation has become increasingly difficult. - c/w PT eval and treatment. - likely will need Rehab. 5. Lymphedema/LE edema - chronic. - c/w Low dose PO lasix BID. DISPOSITION: Rehab placement. daughter Mainor [phone] VS, I&O, 24H, [facility] Vital Signs/I&O Vital Signs Date Time Temp Pulse Resp B/P (MAP) Pulse Ox O2 Delivery O2 Flow Rate FiO2 04/21/19 07:33 89 121/56 (77) 04/21/19 06:00 98.5 19 98 Room Air I&O- Last 24 Hours up to 6 AM 04/21/19 06:00 Intake Total 920 ml Output Total 900 ml Balance 20 ml Laboratory Data 24H LABS Laboratory Tests 2 04/21/19 05:36: Nucleated Red Blood Cells % (auto) 0.0 CBC/BMP Laboratory Tests 04/21/19 05:36 Microbiology Microbiology 04/17/19 Urine Culture - Final, Complete 04/11/19 Stool Occult Blood (CELSO) - Final, Complete DAVID MAYFIELD MD Apr 21, 2019 09:49
--- NOTE | 2019-04-21 09:50 | IPNPDOC ---
Date Seen The patient was seen on 04/21/19. Progress Note SUBJECTIVE: Patient states that she feels fine. Went for urology appt at [place] yesterday, reports that she was told that she needs to get stronger with PT before undergoing surgery. Hb remainied stable overnight 8.7 from 8.6 yesterday. Urine color appeared more tea colored today and less red. OBJECTIVE PHYSICAL EXAMINATION: VITAL SIGNS: Please see below. General: No acute distress, Alert, morbidly obese Eyes: Normal sclera, EOMI, CATHIE HENT: Atraumatic Cardiovascular: Normal rate, normal rhythm. Pulmonary: Clear to auscultation b/l, no wheezing GI: Soft, nontender, obese Skin: Warm and dry. b/l nephrostomy tube posteriorly. Neuro: CN grossly intact. No focal deficits. LABORATORY DATA, IMAGING STUDIES, MICROBIOLOGY: Please see below. DVT prophylaxis ordered?: HSQ held due to anemia. SCD. ASSESSMENT AND PLAN: 1. Anemia - Multifactorial including from bladder mass vs. GI vs. kidney disease. However, most significant contributing factor likely from bladder as persistent hematuria is noted from nephrostomy. - s/p 2 units pRBC 04/19. Appeared to stabelized around 7-8 and asymptomatic. Can likely perform colonoscopy as outpatient but does not suspect GI bleed as a significant contributor to anemia at this time. - Had anticipated that patient should be transferred to [place] for treatment if Hb continues to drop. Had stabelized however. Ideally would like patient to get surgery as soon as possible, timing will be up to urology/surgery. 2. Bladder cancer s/p nephrostomy tube placement - F/u urology in [place]. - Will try to optimize hopefully can get cystectomy as soon as possible. 3. ROWAN - Was seen by nephro previously. Worsened ROWAN after getting diuresis. Had improved. 4. Weakness/deconditioning - ambulation has become increasingly difficult at home. - c/w PT eval and treatment. - likely will need Rehab. 5. Lymphedema/LE edema - chronic. - c/w Low dose PO lasix BID. DISPOSITION: Rehab placement. daughter Mainor [phone] VS, I&O, 24H, [facility] Vital Signs/I&O Vital Signs Date Time Temp Pulse Resp B/P (MAP) Pulse Ox O2 Delivery O2 Flow Rate FiO2 04/21/19 07:33 89 121/56 (77) 04/21/19 06:00 98.5 19 98 Room Air I&O- Last 24 Hours up to 6 AM 04/21/19 06:00 Intake Total 920 ml Output Total 900 ml Balance 20 ml Laboratory Data 24H LABS Laboratory Tests 2 04/21/19 05:36: Nucleated Red Blood Cells % (auto) 0.0 CBC/BMP Laboratory Tests 04/21/19 05:36 Microbiology Microbiology 04/17/19 Urine Culture - Final, Complete 04/11/19 Stool Occult Blood (CELSO) - Final, Complete DAVID MAYFIELD MD Apr 21, 2019 09:50
[2019-04-21 22:00] VITALS: BP 120/59
[2019-04-22 06:00] VITALS: BP 123/64
[2019-04-22 06:29] LABS: HEMATOCRIT 28.9 % (36.0-47.0); HEMOGLOBIN 8.7 g/dl (12.0-15.5); MEAN CORPUSCULAR HEMOGLOBIN 30.2 pg (27.0-33.0); MEAN CORPUSCULAR HGB CONC 30.1 g/dl (32.0-36.5); MEAN CORPUSCULAR VOLUME 100.3 fl (80.0-96.0); PLATELET COUNT, AUTOMATED 312 10^3/uL (150-450); RED BLOOD COUNT 2.88 10^6/uL (4.00-5.40); WHITE BLOOD COUNT 10.5 10^3/uL (4.0-10.0)
[2019-04-22] MEDS: FUROSEMIDE 20 MG TAB PO SCH (07:19)
[2019-04-22] MEDS: CYANOCOBALAMIN 500 MCG TAB PO SCH (07:19)
[2019-04-22] MEDS: TAMSULOSIN 0.4 MG CAP PO SCH (07:19)
[2019-04-22] MEDS: ACETAMINOPHEN TAB 650MG DOSE (2X325MG) PO PRN (07:20)
[2019-04-22] MEDS: amLODIPine 5 MG TAB PO SCH (07:23)
--- NOTE | 2019-04-22 09:17 | DS.PDOC ---
Discharge Summary General Date of Admission Apr 08, 2019 at 23:43 Date of Discharge 04/22/19 Discharge Summary PROCEDURES PERFORMED DURING STAY: [None]. ADMITTING DIAGNOSES: 1. Weakness/Lethargy 2. ROWAN 3. SIRS 4. Elevated Troponin 5. Anemia 6. LE swelling/lymphedema DISCHARGE DIAGNOSES: 1. Weakness/Lethargy 2. ROWAN 3. SIRS 4. Elevated Troponin 5. Anemia 6. LE swelling/lymphedema COMPLICATIONS/CHIEF COMPLAINT: Rowan, Weakness. HISTORY OF PRESENT ILLNESS: "Trish Siddiqui is a 73 YO F with history of bladder mass (biopsy-proven urothelial cell carcinoma of the bladder) and recent hospitalization and pl acement of bilateral nephrostomy tubes, who presents to days after her most recent discharge for feelings of weakness and difficulty getting off her couch. She states that after discharge she took all her medication as prescribed and was feeling well until this morning when she felt an overwhelming sense of weakness, fatigue, lethargy, which prompted her to call EMS. She denies any shortness of breath, cough, nausea, vomiting or diarrhea. She does have some generalized abdominal pain which she is unable to localize. She noticed blood- tinged drainage from her nephrostomy tubes. She was also complaining of left ankle pain and difficulties walking." HOSPITAL COURSE: Patient admitted for ROWAN with concern of physical debility and unable to take care of herself at home wanting to look into placement. She was just discharged from the hospital to home, which was what she wanted at the time but then realized she is too weak to take care of herself after she went home. She was admitted during the previous admission for bladder mass with obstructive uropathy and cystoscopy with mass resection was attempted by urology but unable to due to size and location of mass and was recommended to have nephrostomy tube placed by IR instead while pending further urology evaluation at [facility] for possible radical cystectomy. She was noted to have a very slow drop in Hb during course of hospitalization with blood noted from nephrostomy collections and was given 2 units pRBCs. Hb had remained stable since then. She had her appointment with Urology outpatient 2 days ago and reported that she will need to continue rehab and get stronger prior to surgery. There was also a concern for GI bleed as well and FOBT was performed that was +. No visible blood was ever noted, and patient has had recent iron during last admission. Suspect that GI bleed does not has a significant contribution to anemia and given Hb has been stable, will have patient follow outpatient with GI to discuss the need for a colonoscopy. Patient states that she never has a colonoscopy and is very nervous about it, initially stated that she does not want it but was agreeable to it if needed with daughter's input. She is currently stable but there is a concern for recurrence of hematuria. Ideally, I like to see her get the surgery done as soon as possible but will defer that decision to urology/surgery. I have reached out to [facility] to touch base with Dr. Dee, pending call back to discuss the goals and progr ession of care ([phone]). If there is any information that need to be relay to [facility] where patient is going, will reach out to them ([phone]). Plans discussed with patient's daughter Leonarda ([phone]). DISCHARGE MEDICATIONS: Please see below. ALLERGIES: Please see below. PHYSICAL EXAMINATION ON DISCHARGE: VITAL SIGNS: Please see below. General: No acute distress, Alert, morbidly obese Eyes: Normal sclera, EOMI, CATHIE HENT: Atraumatic Cardiovascular: Normal rate, normal rhythm. Pulmonary: Clear to auscultation b/l, no wheezing GI: Soft, nontender, obese Skin: Warm and dry. b/l nephrostomy tube posteriorly. Neuro: CN grossly intact. No focal deficits. LABORATORY DATA: Please see below. IMAGING: Renal US- IMPRESSION: 1. Suggestion of renal sinus lipomatosis bilaterally. 2. Otherwise grossly negative renal sonogram with limited visualization of the kidneys. The bladder is not seen. ACTIVITY: [As tolerated]. DIET: 2G sodium diet DISCHARGE PLAN: f/u PCP, Urology, and GI (to discuss +FOBT and may need colonoscopy). Should have routine CBC monitoring, especially if significant hematuria is noted. Should return to ER with patient develop symptomatic anemia or noted to be bleeding heavily. DISPOSITION: SNF. DISCHARGE INSTRUCTIONS: f/u PCP, Urology, and GI (to discuss +FOBT and may need colonoscopy). Should have routine CBC monitoring, especially if significant hematuria is noted. Should return to ER with patient develop symptomatic anemia or noted to be bleeding heavily. ITEMS TO FOLLOWUP ON ON OUTPATIENT: None DISCHARGE CONDITION: [Stable]. TIME SPENT ON DISCHARGE: 35 minutes. Vital Signs/I&Os Vital Signs Date Time Temp Pulse Resp B/P (MAP) Pulse Ox O2 Delivery O2 Flow Rate FiO2 04/22/19 06:00 98.2 91 19 123/64 (83) 97 Room Air I&O- Last 24 Hours up to 6 AM 04/22/19 06:00 Intake Total 1300 ml Output Total 625 ml Balance 675 ml Laboratory Data Labs 24H Laboratory Tests 2 04/22/19 05:21: Nucleated Red Blood Cells % (auto) 0.0 CBC/BMP Laboratory Tests 04/22/19 05:21 Microbiology Microbiology 04/17/19 Urine Culture - Final, Complete Discharge Medications Scheduled Amlodipine Besylate (Amlodipine Besylate) 5 Mg Tablet, 5 MG PO DAILY, (Reported) Cyanocobalamin (Vitamin B-12) (Vitamin B-12) 1,000 Mcg Capsule, 1,000 MCG PO DAILY, (Reported) Ergocalciferol (Vitamin D2) (Vitamin D2) 50,000 Unit Capsule, 50,000 UNIT PO 1XWK, (Reported) SUNDAYS Tamsulosin HCl (Flomax) 0.4 Mg Capsule, 0.4 MG PO DAILY, (Reported) Scheduled PRN Sennosides/Docusate Sodium (Senna-S Tablet) 1 Each Tablet, 1 TAB PO BID PRN for CONSTIPATION, (Reported) Allergies Coded Allergies: No Known Allergies (Unverified , 02/24/19) DAVID MAYFIELD MD Apr 22, 2019 09:17
== END 2019-04-22 10:20 | DRG 683 ==
LOC: M ED 18:54 → M ED INP 23:43 → M MSPAV 04-09 01:29
PROVIDERS: ADMIT Internal Medicine; ATTEND Student in an Organized Health Care Education/Training Program
PROC: 30233N1 Transfusion of Nonautologous Red Blood Cells into Peripheral Vein, Percutaneous Approach (ICD-10-PCS; principal; 2019-04-19)
DX: N17.9 Acute kidney failure, unspecified (principal); R65.10 Systemic inflammatory response syndrome (SIRS) of non-infectious origin without acute organ dysfunction; Z68.42 Body mass index [BMI] 45.0-49.9, adult; N39.0 Urinary tract infection, site not specified; E66.01 Morbid (severe) obesity due to excess calories; N18.3 Chronic kidney disease, stage 3 (moderate); C67.9 Malignant neoplasm of bladder, unspecified; I87.2 Venous insufficiency (chronic) (peripheral); E87.5 Hyperkalemia; D50.0 Iron deficiency anemia secondary to blood loss (chronic); Z79.899 Other long term (current) drug therapy; D63.1 Anemia in chronic kidney disease